=== PATIENT | female | born 1995 | race Caucasian/White ===

== ENCOUNTER 2017-08-24 23:58 | Emergency (ER) | payer SELFPAY ==
[2017-08-25 00:34] LABS: Urine Blood TRACE (NEG); Urine Glucose NEGATIVE (NEG); Urine Protein 1+ (NEG)
[2017-08-25 01:03] LABS: Urine Bacteria <20 /HPF (<20); Urine RBC <5 /HPF (NONE SEEN)
[2017-08-25 01:04] LABS: Urine Culture Reflex Order NOT NEEDED; Urine Mucus MOD /HPF (NONE SEEN)
--- NOTE | 2017-08-25 01:18 | EDPHYS ---
Physician Documentation [facility] Name: Kenyatta Mejía Age: 21 yrs Sex: Female : 1995 Arrival Date: 08/24/2017 Time: 23:58 Bed 19 Private MD: ED Physician Raza Quinteros HPI: 08/25 00:32 This 21 yrs old Female presents to ER via Ambulatory with complaints of jr8 Vaginal Pain - Burning. 00:32 The patient presents with urinary symptoms, dysuria, vaginal pain. Onset: The jr8 symptoms/episode began/occurred acutely, yesterday. Modifying factors: The symptoms are alleviated by nothing, the symptoms are aggravated by urinating. Associated signs and symptoms: The patient has no apparent associated signs or symptoms. Severity of symptoms: At their worst the symptoms were mild, in the emergency department the symptoms are unchanged. The patient has not experienced similar symptoms in the past. The patient has not recently seen a physician. 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 - Social history:: Smoking status: Patient uses tobacco products, smokes one pack cigarettes per day. - Ebola Screening: : No symptoms or risks identified at this time. ROS: 00:32 Eyes: Negative for injury, pain, redness, and discharge, ENT: Negative for injury, jr8 pain, and discharge, Neck: Negative for injury, pain, and swelling, Cardiovascular: Negative for chest pain, palpitations, and edema, Respiratory: Negative for shortness of breath, cough, wheezing, and pleuritic chest pain, Abdomen/GI: Negative for abdominal pain, nausea, vomiting, diarrhea, and constipation, Back: Negative for injury and pain, MS/Extremity: Negative for injury and deformity, Skin: Negative for injury, rash, and discoloration, Neuro: Negative for headache, weakness, numbness, tingling, and seizure. 00:32 : Positive for urinary symptoms, vaginal burning, Negative for pelvic pain, flank pain, vaginal bleeding, vaginal discharge, vaginal itching, menstrual abnormality, missed period. Exam: 00:32 Cardiovascular: Regular rate and rhythm with a normal S1 and S2. No gallops, murmurs, jr8 or rubs. Normal PMI, no JVD. No pulse deficits. Respiratory: Lungs have equal breath sounds bilaterally, clear to auscultation and percussion. No rales, rhonchi or wheezes noted. No increased work of breathing, no retractions or nasal flaring. Abdomen/GI: Soft, non-tender, with normal bowel sounds. No distension or tympany. No guarding or rebound. No evidence of tenderness throughout. Back: No spinal tenderness. No costovertebral tenderness. Full range of motion. Skin: Warm, dry with normal turgor. Normal color with no rashes, no lesions, and no evidence of cellulitis. MS/ Extremity: Pulses equal, no cyanosis. Neurovascular intact. Full, normal range of motion. Neuro: Awake and alert, GCS 15, oriented to person, place, time, and situation. Cranial nerves II-XII grossly intact. Motor strength 5/5 in all extremities. Sensory grossly intact. Cerebellar exam normal. Normal gait. 01:15 : Pelvic Exam: External exam: no appreciated Bartholin's cyst, not excoriated, no jr8 evidence of foreign body, no lesions, no ulcerations, no warts seen, mild erythema to left labia minora , the nurse was present for the exam. Vital Signs: 00:13 BP 96 / 84; Pulse 72; Resp 16; Temp 98.3; Pulse Ox 99% on R/A; Weight 49.9 kg (M); ak1 Height 5 ft. 5 in. (165.10 cm) (R); Pain 9/10; 01:13 BP 106 / 72; Pulse 66; Resp 16 S; Temp 98(O); Pulse Ox 98% on R/A; Pain 5/10; bs1 00:13 Body Mass Index 18.30 (49.90 kg, 165.10 cm) ak1 MDM: 00:19 Patient medically screened. jr8 01:16 Data reviewed: vital signs, nurses notes, lab test result(s), and as a result, I will jr8 discharge patient. Data interpreted: Pulse oximetry: on room air is 99 %. Interpretation: normal. Counseling: I had a detailed discussion with the patient and/or guardian regarding: the historical points, exam findings, and any diagnostic results supporting the discharge/admit diagnosis, lab results, the need for outpatient follow up, an OB/Gyne specialist, to return to the emergency department if symptoms worsen or persist or if there are any questions or concerns that arise at home. 08/25 00:20 Order name: Urine Microscopic Only; Complete Time: 01:04 jr8 08/25 00:26 Order name: Urine Dipstick--Ancillary (enter results); Complete Time: 00:42 rg2 08/25 00:20 Order name: Urine Test (obtain specimen); Complete Time: 00:25 8 08/25 00:20 Order name: Urine Dipstick-Ancillary (obtain specimen); Complete Time: 00:08/25 00:26 Order name: Urine --Ancillary (enter results); Complete Time: 00:42 rg2 Administered Medications: No medications were administered Disposition: 07:01 Co-signature as Attending Physician, Raza Quinteros MD I agree with the assessment and juan plan of care. Disposition: 08/25/17 01:17 Discharged to Home. Impression: Vaginitis. - Condition is Stable. - Discharge Instructions: Vaginitis, Monilial. - Prescriptions for Clotrimazole 1 % Vaginal Cream - insert 1 applicatorful by VAGINAL route At bedtime for 7 days; 7 Syringe. - Medication Reconciliation Form, Thank You Letter, Antibiotic Education, Prescription Opioid Use form. - Follow up: Private Physician; When: 1 week; Reason: Recheck today's complaints, Continuance of care, Re-evaluation by your physician. - Problem is new. - Symptoms have improved. Signatures: Dispatcher [employer] [facility] Raza Quinteros MD MD cha Roszak, Josh, PA PA jr8 Jemma Reed, RN RN ak1 Chanel Schrader RN RN bs1 Corrections: (The following items were deleted from the chart) 01:41 01:17 08/25/2017 01:17 Discharged to Home. Impression: Vaginitis. Condition is Stable. bs1 Forms are Medication Reconciliation Form, Thank You Letter, Antibiotic Education, Prescription Opioid Use. Follow up: Private Physician; When: 1 week; Reason: Recheck today's complaints, Continuance of care, Re-evaluation by your physician. Problem is new. Symptoms have improved. jr8
--- NOTE | 2017-08-25 01:18 | ER ---
Nurse's Notes [facility] Name: Kenyatta Mejía Age: 21 yrs Sex: Female : 1995 Arrival Date: 08/24/2017 Time: 23:58 Bed 19 Private MD: Diagnosis: Vaginitis Presentation: 08/25 00:12 Presenting complaint: Patient states: burning with urination and vaginal burning X2 ak1 days. pt denies vaginal bleeding, denies vaginal discharge. Transition of care: patient was not received from another setting of care. Onset of symptoms is unknown. Risk Assessment: Do you want to hurt yourself or someone else? Patient reports no desire to harm self or others. Risk Assessment: Do you want to hurt yourself or someone else?. Initial Sepsis Screen: Does the patient meet any 2 criteria? No. Patient's initial sepsis screen is negative. Does the patient have a suspected source of infection? No. Patient's initial sepsis screen is negative. Care prior to arrival: None. 00:12 Method Of Arrival: Ambulatory ak1 00:12 Acuity: COLIN 4 ak1 Triage Assessment: 00:13 General: Appears in no apparent distress. Behavior is calm, cooperative. Pain: ak1 Complains of pain in groin. EENT: No signs and/or symptoms were reported regarding the EENT system. Neuro: No deficits noted. Cardiovascular: No deficits noted. Respiratory: No deficits noted. GI: No signs and/or symptoms were reported involving the gastrointestinal system. 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 Derm: No signs and/or symptoms reported regarding the dermatologic system. Musculoskeletal: No signs and/or symptoms reported regarding the musculoskeletal system. 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 - Social history:: Smoking status: Patient uses tobacco products, smokes one pack cigarettes per day. - Ebola Screening: : No symptoms or risks identified at this time. Screenin:15 Abuse screen: Denies threats or abuse. Denies injuries from another. Nutritional ak1 screening: No deficits noted. Tuberculosis screening: No symptoms or risk factors identified. Fall Risk None identified. Assessment: 00:15 Reassessment: See Triage assessment. bs1 01:15 Reassessment: Patient and/or family updated on plan of care and expected duration. Pain bs1 level reassessed. Patient is alert, oriented x 3, equal unlabored respirations, skin warm/dry/pink. Assisted PEREZ Simpson with external pelvic exam. Patient tolerated. Vital Signs: 00:13 BP 96 / 84; Pulse 72; Resp 16; Temp 98.3; Pulse Ox 99% on R/A; Weight 49.9 kg (M); ak1 Height 5 ft. 5 in. (165.10 cm) (R); Pain 9/10; 01:13 BP 106 / 72; Pulse 66; Resp 16 S; Temp 98(O); Pulse Ox 98% on R/A; Pain 5/10; bs1 00:13 Body Mass Index 18.30 (49.90 kg, 165.10 cm) ak1 ED Course: 08/24 23:58 Patient arrived in ED. ds1 07 00:13 Triage completed. ak1 00:13 Arm band placed on Patient placed in an exam room, on a stretcher, Patient notified of ak1 wait time. 00:15 Patient has correct armband on for positive identification. Bed in low position. Call ak1 light in reach. Side rails up X 1. 00:19 Peewee Simpson PA is PHCP. jr8 00:19 Raza Quinteros MD is Attending Physician. jr8 00:29 Chanel Schrader, MAIK is Primary Nurse. bs1 01:15 Assist provider with pelvic exam:. bs1 01:15 Patient did not have IV access during this emergency room visit. bs1 Administered Medications: No medications were administered Outcome: 01:17 Discharge ordered by . jr8 01:40 Discharged to home ambulatory, with significant other. bs1 01:40 Condition: stable 01:40 Discharge instructions given to patient, Instructed on discharge instructions, follow up and referral plans. medication usage, Demonstrated understanding of instructions, follow-up care, medications, Prescriptions given X 1. 01:41 Patient left the ED. bs1 Signatures: Rina Pichardo ds1 Peewee Simpson PA PA jr8 Krenek, Amber, RN RN ak1 Chanel Schrader, RN RN bs1
== END 2017-08-25 01:41 | disposition home or self-care (01) ==
LOC: ER 23:58
DX: N76.0 Acute vaginitis (principal); F17.210 Nicotine dependence, cigarettes, uncomplicated
CPT/HCPCS: 81003; 81015; 81025; 99283

== ENCOUNTER 2017-10-22 18:18 | Emergency (ER) | payer SELFPAY ==
[2017-10-22 21:56] LABS: Absolute Monocytes 0.3 K/uL (0.1-1.3); Absolute Neutrophil 2.3 K/uL (1.8-8.0); Basophils % 0.5 % (0-1.3); Eosinophils % 1.8 % (0-4.4); Hematocrit 37.9 % (36.0-45.0); Lymphocytes % 27.2 % (15.3-44.8); MCH 29.6 pg (27.0-35.0); MCV 85.3 fL (80-100); MPV 8.7 fL (7.6-11.3); RBC Red Blood Cell Count 4.45 M/uL (3.86-4.86)
--- NOTE | 2017-10-22 22:08 | RAD REPORT ---
EXAM DESCRIPTION: CT - Abdomen Pelvis W Contrast - 10/22/2017 9:46 pm CLINICAL HISTORY: Abdominal pain with vaginal bleeding and vomiting. COMPARISON: none. TECHNIQUE: Computed axial tomography of the abdomen pelvis was obtained. 100 cc Isovue-300 was admin istered intravenously. Oral contrast was not requested which limits evaluation of bowel. All CT scans are performed using dose optimization technique as appropriate and may include automated exposure control or mA/KV adjustment according to patient size. FINDINGS: The liver, spleen, pancreas, adrenal and kidneys appear unremarkable. There is no evidence of diverticulitis. The appendix is normal Fluid is present within nondilated small IMPRESSION: Fluid within nondilated small bowel may indicate an enteritis
[2017-10-22 22:20] LABS: ALT/SGPT 39 U/L (12-78); AST/SGOT 22 U/L (15-37); Albumin 4.3 g/dL (3.4-5.0); Alkaline Phosphatase 55 U/L (45-117); BUN Blood Urea Nitrogen 14 mg/dL (7-18); Bicarbonate 26 mmol/L (21-32); Bilirubin Direct 0.2 mg/dL (0-0.2); Bilirubin Total 0.7 mg/dL (0.2-1.0); Glucose Level 84 mg/dL (74-106); Lipase 177 U/L (73-393); Potassium 3.7 mmol/L (3.5-5.1); Protein, Total 7.8 g/dL (6.4-8.2); Sodium Level 138 mmol/L (136-145)
--- NOTE | 2017-10-22 22:27 | EDPHYS ---
Physician Documentation [facility] Name: Kenyatta Mejía Age: 22 yrs Sex: Female : 1995 Arrival Date: 10/22/2017 Time: 18:21 Bed 25 Private MD: ED Physician John Stone HPI: 10/22 21:30 This 22 yrs old Female presents to ER via Ambulatory with complaints of jr8 Vaginal Bleeding, Nausea/Vomiting. 21:30 The patient presents with abdominal pain. Onset: The symptoms/episode began/occurred jr8 acutely, today. The symptoms do not radiate. Associated signs and symptoms: Pertinent positives: nausea and vomiting. The symptoms are described as stabbing. Modifying factors: The symptoms are alleviated by nothing, the symptoms are aggravated by nothing. Severity of pain: At its worst the pain was moderate in the emergency department the pain is unchanged. The patient has not experienced similar symptoms in the past. The patient has not recently seen a physician. stated that she has had vaginal bleeding on/off for two weeks as well . 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 - Social history:: Smoking status: Patient uses tobacco products, denies chronic smoking, but will smoke occasionally. - Ebola Screening: : Patient negative for fever greater than or equal to 101.5 degrees Fahrenheit, and additional compatible Ebola Virus Disease symptoms Patient denies exposure to infectious person Patient denies travel to an Ebola-affected area in the 21 days before illness onset No symptoms or risks identified at this time. ROS: 21:30 Eyes: Negative for injury, pain, redness, and discharge, ENT: Negative for injury, jr8 pain, and discharge, Neck: Negative for injury, pain, and swelling, Cardiovascular: Negative for chest pain, palpitations, and edema, Respiratory: Negative for shortness of breath, cough, wheezing, and pleuritic chest pain, Back: Negative for injury and pain, MS/Extremity: Negative for injury and deformity, Skin: Negative for injury, rash, and discoloration, Neuro: Negative for headache, weakness, numbness, tingling, and seizure. 21:30 Abdomen/GI: Positive for abdominal pain, nausea and vomiting, Negative for diarrhea, abdominal cramps, abdominal distension, anorexia, dysphagia, hematemesis, black/tarry stool, rectal pain, rectal bleeding, bowel incontinence, flatulence. 21:30 : Positive for vaginal bleeding, menstrual abnormality, Negative for urinary symptoms, pelvic pain, flank pain, burning with urination, difficulty urinating, vaginal discharge, vaginal itching. Exam: 21:31 Eyes: Pupils equal round and reactive to light, extra-ocular motions intact. Lids and jr8 lashes normal. Conjunctiva and sclera are non-icteric and not injected. Cornea within normal limits. Periorbital areas with no swelling, redness, or edema. ENT: Nares patent. No nasal discharge, no septal abnormalities noted. Tympanic membranes are normal and external auditory canals are clear. Oropharynx with no redness, swelling, or masses, exudates, or evidence of obstruction, uvula midline. Mucous membranes moist. Neck: Trachea midline, no thyromegaly or masses palpated, and no cervical lymphadenopathy. Supple, full range of motion without nuchal rigidity, or vertebral point tenderness. No Meningismus. Cardiovascular: Regular rate and rhythm with a normal S1 and S2. No gallops, murmurs, or rubs. Normal PMI, no JVD. No pulse deficits. Respiratory: Lungs have equal breath sounds bilaterally, clear to auscultation and percussion. No rales, rhonchi or wheezes noted. No increased work of breathing, no retractions or nasal flaring. Back: No spinal tenderness. No costovertebral tenderness. Full range of motion. Skin: Warm, dry with normal turgor. Normal color with no rashes, no lesions, and no evidence of cellulitis. MS/ Extremity: Pulses equal, no cyanosis. Neurovascular intact. Full, normal range of motion. Neuro: Awake and alert, GCS 15, oriented to person, place, time, and situation. Cranial nerves II-XII grossly intact. Motor strength 5/5 in all extremities. Sensory grossly intact. Cerebellar exam normal. Normal gait. 21:31 Abdomen/GI: Inspection: abdomen appears normal, Bowel sounds: active, all quadrants, Palpation: soft, in all quadrants, moderate abdominal tenderness, in the left lower quadrant, rebound tenderness, is not appreciated, voluntary guarding, is not appreciated, involuntary guarding, is not appreciated, no appreciated organomegaly, Indicators: McBurney's point is not tender, Canela's sign is negative, Rovsing's sign is negative, Liver: no appreciated palpable abnormalities, tenderness, is not appreciated. Vital Signs: 18:46 BP 108 / 70; Pulse 73; Resp 16; Temp 97.6; Pulse Ox 98% on R/A; Weight 49.9 kg; Height aj 5 ft. 5 in. (165.10 cm); 20:32 BP 113 / 68; Pulse 77; Resp 16; Pulse Ox 100% on R/A; tl3 21:55 BP 89 / 56; Pulse 84; Resp 16; Pulse Ox 96% ; tl3 22:54 BP 110 / 72; Pulse 74; Resp 18; Pulse Ox 100% on R/A; tl3 18:46 Body Mass Index 18.30 (49.90 kg, 165.10 cm) aj MDM: 20:51 Patient medically screened. jr8 22:26 Data reviewed: vital signs, nurses notes, lab test result(s), radiologic studies, CT jr8 scan, and as a result, I will discharge patient. Data interpreted: Pulse oximetry: on room air is 96 %. Interpretation: normal. Counseling: I had a detailed discussion with the patient and/or guardian regarding: the historical points, exam findings, and any diagnostic results supporting the discharge/admit diagnosis, lab results, radiology results, the need for outpatient follow up, a family practitioner, to return to the emergency department if symptoms worsen or persist or if there are any questions or concerns that arise at home. 10/22 21:00 Order name: Basic Metabolic Panel; Complete Time: 22:25 8 10/22 21:00 Order name: CBC with Diff; Complete Time: 22:03 10/22 21:00 Order name: Creatinine for Radiology; Complete Time: 22:25 [facility] 10/22 21:00 Order name: Hepatic Function; Complete Time: 22:25 8 10/22 21:00 Order name: Lipase; Complete Time: 22:25 [facility] 10/22 21:01 Order name: Urine Dipstick--Ancillary (enter results) 10/22 21:00 Order name: Urine Test (obtain specimen); Complete Time: 22:16 [facility] 10/22 21:00 Order name: IV Saline Lock; Complete Time: 22:16 [facility] 10/22 21:00 Order name: Labs collected and sent; Complete Time: 22:16 [facility] 10/22 21:00 Order name: Urine Dipstick-Ancillary (obtain specimen); Complete Time: 22:16 [facility] 10/22 21:00 Order name: CT Abd/Pelvis - W/Contrast; Complete Time: 22:25 [facility] 10/22 21:01 Order name: Urine --Ancillary (enter results) fc Administered Medications: No medications were administered Disposition: 10/23 02:12 Co-signature as Attending Physician, John Stone MD I agree with the assessment and ps1 plan of care. Disposition: 10/22/17 22:27 Discharged to Home. Impression: Enteritis, Abnormal uterine and vaginal bleeding, unspecified. - Condition is Stable. - Discharge Instructions: Abnormal Uterine Bleeding, Viral Gastroenteritis, Adult, Form - Excuse from Work, School, or Physical Activity, Form - Return To Work. - Prescriptions for Bentyl 20 mg Oral Tablet - take 1 tablet by ORAL route every 6 hours As needed; 20 tablet. Zofran 4 mg Oral Tablet - take 1 tablet by ORAL route every 12 hours As needed; 20 tablet. - Medication Reconciliation Form, Thank You Letter, Antibiotic Education, Prescription Opioid Use, Work release form form. - Follow up: Private Physician; When: 2 - 3 days; Reason: Recheck today's complaints, Continuance of care, Re-evaluation by your physician. - Problem is new. - Symptoms have improved. Signatures: Dispatcher [employer] Jossie Carpenter RN RN Peewee Erazo PA PA jr8 John Stone MD MD ps1 Oneida Lai RN RN tl3 Corrections: (The following items were deleted from the chart) 10/22 23:02 22:27 10/22/2017 22:27 Discharged to Home. Impression: Enteritis; Abnormal uterine and tl3 vaginal bleeding, unspecified. Condition is Stable. Forms are Medication Reconciliation Form, Thank You Letter, Antibiotic Education, Prescription Opioid Use. Follow up: Private Physician; When: 2 - 3 days; Reason: Recheck today's complaints, Continuance of care, Re-evaluation by your physician. Problem is new. Symptoms have improved. jr8
--- NOTE | 2017-10-22 22:27 | ER ---
Nurse's Notes [facility] Name: Kenyatta Mejía Age: 22 yrs Sex: Female : 1995 Arrival Date: 10/22/2017 Time: 18:21 Bed 25 Private MD: Diagnosis: Enteritis;Abnormal uterine and vaginal bleeding, unspecified Presentation: 10/22 18:44 Presenting complaint: Patient states: Vaginal bleeding for 2 weeks. Nausea and vomiting aj today. Patient reports vaginal bleeding has decreased today. Transition of care: patient was not received from another setting of care. Onset of symptoms was October 09, 2017. Risk Assessment: Do you want to hurt yourself or someone else? Patient reports no desire to harm self or others. Initial Sepsis Screen: Does the patient meet any 2 criteria? No. Patient's initial sepsis screen is negative. Does the patient have a suspected source of infection? No. Patient's initial sepsis screen is negative. Care prior to arrival: None. 18:44 Method Of Arrival: Ambulatory aj 18:44 Acuity: COLIN 3 aj Triage Assessment: 18:46 General: Appears in no apparent distress. comfortable, Behavior is calm, cooperative, aj appropriate for age. Pain: Complains of pain in right upper quadrant and left upper quadrant. Neuro: Level of Consciousness is awake, alert, obeys commands, Oriented to person, place, time, situation, Appropriate for age. Respiratory: Airway is patent Respiratory effort is even, unlabored, Respiratory pattern is regular, symmetrical. GI: Abdomen is flat, Reports upper abdominal pain, nausea, vomiting. : Reports vaginal bleeding that is moderate flow. Derm: Skin is intact, is healthy with good turgor, Skin is pink, warm \T\ dry. normal. 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 - Social history:: Smoking status: Patient uses tobacco products, denies chronic smoking, but will smoke occasionally. - Ebola Screening: : Patient negative for fever greater than or equal to 101.5 degrees Fahrenheit, and additional compatible Ebola Virus Disease symptoms Patient denies exposure to infectious person Patient denies travel to an Ebola-affected area in the 21 days before illness onset No symptoms or risks identified at this time. Screenin:32 Abuse screen: Denies threats or abuse. Nutritional screening: No deficits noted. tl3 Tuberculosis screening: No symptoms or risk factors identified. Fall Risk None identified. Assessment: 20:32 General: Appears in no apparent distress. comfortable, Behavior is calm, cooperative, tl3 appropriate for age. Pain: Complains of pain in abdomen and left upper quadrant. Neuro: Level of Consciousness is awake, alert, obeys commands. Cardiovascular: Patient's skin is warm and dry. Respiratory: Airway is patent Respiratory effort is even, unlabored, Respiratory pattern is regular, symmetrical. GI: Reports nausea, vomiting, twice today. : Reports vaginal bleeding that is 2 weeks, scant bleeding today, no clots, has implant control, in for over three years. 21:55 Reassessment: No changes from previously documented assessment. Patient and/or family tl3 updated on plan of care and expected duration. Pain level reassessed. Patient is alert, oriented x 3, equal unlabored respirations, skin warm/dry/pink. 22:54 Reassessment: Patient appears in no apparent distress at this time. No changes from tl3 previously documented assessment. Patient and/or family updated on plan of care and expected duration. Pain level reassessed. Patient is alert, oriented x 3, equal unlabored respirations, skin warm/dry/pink. Vital Signs: 18:46 BP 108 / 70; Pulse 73; Resp 16; Temp 97.6; Pulse Ox 98% on R/A; Weight 49.9 kg; Height aj 5 ft. 5 in. (165.10 cm); 20:32 BP 113 / 68; Pulse 77; Resp 16; Pulse Ox 100% on R/A; tl3 21:55 BP 89 / 56; Pulse 84; Resp 16; Pulse Ox 96% ; tl3 22:54 BP 110 / 72; Pulse 74; Resp 18; Pulse Ox 100% on R/A; tl3 18:46 Body Mass Index 18.30 (49.90 kg, 165.10 cm) aj ED Course: 18:21 Patient arrived in ED. am2 18:46 Triage completed. aj 18:46 Arm band placed on left wrist. Patient placed in waiting room, Patient notified of wait aj time. 20:18 Roszak, Peewee, PA is PHCP. jr8 20:18 John Stone MD is Attending Physician. jr8 20:31 Oneida Lai, RN is Primary Nurse. tl3 20:32 Patient has correct armband on for positive identification. Bed in low position. Call tl3 light in reach. Side rails up X 1. Pulse ox on. NIBP on. 20:32 No provider procedures requiring assistance completed. tl3 21:19 Radiology exam delayed due to lab results not completed at this time. (BUN/Creatinine) vm2 test not completed at this time. 21:26 Radiology exam delayed due to lab results not completed at this time. (BUN/Creatinine). nj 21:[address] via wheelchair. [facility] 21:39 CT completed. Patient tolerated procedure well. Patient moved back from CT. mo 21:46 CT Abd/Pelvis - W/Contrast In Process Unspecified. EDMS 21:55 Initial lab(s) drawn, by me, sent to lab. Inserted saline lock: 20 gauge in left tl3 antecubital area, using aseptic technique. Blood collected. 22:54 IV discontinued, intact, bleeding controlled, No redness/swelling at site. Pressure tl3 dressing applied. Administered Medications: No medications were administered Outcome: 22:27 Discharge ordered by . jr8 22:54 Discharged to home ambulatory. tl3 22:54 Condition: stable 22:54 Discharge instructions given to patient, Instructed on discharge instructions, follow up and referral plans. medication usage, Demonstrated understanding of instructions, follow-up care, medications, Prescriptions given X 2. 23:02 Patient left the ED. tl3 Signatures: Dispatcher [employer] EDMS Jossie Bull, RN Peewee Barrientos PA PA jr8 Kevan Ireland Amanda Serenity Sánchez [facility] Oneida Lai, RN RN tl3
[2017-10-22 23:04] LABS: Urine Blood TRACE (NEG); Urine Glucose NEGATIVE (NEG); Urine Protein NEGATIVE (NEG); Urine pH 5.5 (5.0-7.0)
== END 2017-10-22 23:02 | disposition home or self-care (01) ==
LOC: ER 18:18
DX: N93.9 Abnormal uterine and vaginal bleeding, unspecified (principal); K52.9 Noninfective gastroenteritis and colitis, unspecified; Z72.0 Tobacco use
CPT/HCPCS: 36415; 74177; 80048; 80076; 81003; 81025; 83690; 85025; 99284; Q9967

== ENCOUNTER 2018-04-01 09:48 | Emergency (ER) | payer SELFPAY ==
--- NOTE | 2018-04-01 10:57 | ER ---
Nurse's Notes [facility] Name: Kenyatta Mejía Age: 22 yrs Sex: Female : 1995 Arrival Date: 04/01/2018 Time: 09:49 Bed 23 Private MD: None, None Diagnosis: Allergic rhinitis, unspecified Presentation: 04/01 10:01 Presenting complaint: Patient states: intermittent sore throat x "a couple months". ss Transition of care: patient was not received from another setting of care. Onset of symptoms is unknown. Risk Assessment: Do you want to hurt yourself or someone else? Patient reports no desire to harm self or others. Initial Sepsis Screen: Does the patient meet any 2 criteria? No. Patient's initial sepsis screen is negative. Does the patient have a suspected source of infection? No. Patient's initial sepsis screen is negative. Care prior to arrival: None. 10:01 Method Of Arrival: Ambulatory ss 10:01 Acuity: COLIN 4 ss Historical: - Allergies: 10:02 No Known Allergies; ss - Home Meds: 10:02 None [Active]; ss - PMHx: 10:02 None; ss - PSHx: 10:02 None; ss - Immunization history:: Adult Immunizations up to date. - Social history:: Smoking status: Patient uses tobacco products, < 1/2 ppd. - Ebola Screening: : Patient denies exposure to infectious person Patient denies travel to an Ebola-affected area in the 21 days before illness onset. Screenin:13 Abuse screen: Denies threats or abuse. Denies injuries from another. Nutritional ss screening: No deficits noted. Tuberculosis screening: No symptoms or risk factors identified. Never had TB. Fall Risk None identified. Assessment: 10:13 General: Appears in no apparent distress. comfortable, Behavior is calm, cooperative, ss Denies fever, feeling ill, fatigue, chills. Pain: Complains of pain in throat Pain currently is 9 out of 10 on a pain scale. Quality of pain is described as sore Pain began pt reports that pain comes for a week, then is gone for a week and this has been ongoing for months. Neuro: Level of Consciousness is awake, alert, obeys commands, Oriented to person, place, time, situation. Cardiovascular: Heart tones S1 S2 present Capillary refill < 3 seconds is brisk in bilateral fingers Patient's skin is warm and dry. Respiratory: Airway is patent Respiratory effort is even, unlabored, Respiratory pattern is regular, symmetrical, Breath sounds are clear bilaterally. GI: Patient currently denies diarrhea, nausea, vomiting. : No signs and/or symptoms were reported regarding the genitourinary system. EENT: Nares are clear Oral mucosa is moist. Throat is clear is reddened. Derm: Skin is intact, is healthy with good turgor, Skin is dry, Skin is pink, warm \\T\\ dry. normal. Musculoskeletal: Circulation, motion, and sensation intact. Range of motion: intact in all extremities, Swelling absent. Vital Signs: 10:02 BP 116 / 57; Pulse 87; Resp 14; Temp 97.6(TE); Pulse Ox 98% on R/A; Height 5 ft. 5 in. ss (165.10 cm); Pain 9/10; ED Course: 09:49 Patient arrived in ED. sb2 09:49 None, None is Private Physician. sb2 10:00 Renée Roberts FNP-C is [facility]. snw 10:00 Sage Tracy MD is Attending Physician. snw 10:02 Triage completed. ss 10:02 Arm band placed on right wrist. ss 10:11 Flu Sent. ss 10:11 Strep Sent. ss 10:13 Marixa Ragsdale, MAIK is Primary Nurse. ss 10:13 Patient has correct armband on for positive identification. Bed in low position. Call ss light in reach. 11:00 No provider procedures requiring assistance completed. Patient did not have IV access ss during this emergency room visit. Administered Medications: No medications were administered Outcome: 10:56 Discharge ordered by . snw 11:00 Discharged to home ambulatory. ss 11:00 Condition: good 11:00 Discharge instructions given to patient, family, Instructed on discharge instructions, follow up and referral plans. medication usage, Demonstrated understanding of instructions, follow-up care, medications, Prescriptions given X 1. 11:00 Patient left the ED. ss Signatures: Renée Roberts FNP-C SENIOR JAVA WEB APPLICATION DEVELOPER-Csnw Marixa Ragsdale, RN RN Veena Mccall sb2 Corrections: (The following items were deleted from the chart) 10:09 10:02 BP 116 / 5; Pulse 87bpm; Resp 14bpm; Pulse Ox 98% RA; Temp 97.6F Temporal; Height ss 5 ft. 5 in.; Pain 9/; ss
--- NOTE | 2018-04-01 10:57 | EDPHYS ---
Physician Documentation [facility] Name: Kenyatta Mejía Age: 22 yrs Sex: Female : 1995 Arrival Date: 04/01/2018 Time: 09:49 Bed 23 Private MD: None, None ED Physician Sage Tracy HPI: 04/01 10:58 This 22 yrs old Female presents to ER via Ambulatory with complaints of Sore snw Throat. 10:58 The patient presents with sore throat. The patient describes throat pain as raw. Onset: snw The symptoms/episode began/occurred gradually, comes and goes over and over, congested nose, sore throat, and then headache that comes and goes frequently. Historical: - Allergies: 10:02 No Known Allergies; ss - Home Meds: 10:02 None [Active]; ss - PMHx: 10:02 None; ss - PSHx: 10:02 None; ss - Immunization history:: Adult Immunizations up to date. - Social history:: Smoking status: Patient uses tobacco products, < 1/2 ppd. - Ebola Screening: : Patient denies exposure to infectious person Patient denies travel to an Ebola-affected area in the 21 days before illness onset. ROS: 10:57 Constitutional: Negative for fever, chills, and weight loss, Eyes: Negative for injury, snw pain, redness, and discharge, Neck: Negative for injury, pain, and swelling, Cardiovascular: Negative for chest pain, palpitations, and edema, Respiratory: Negative for shortness of breath, cough, wheezing, and pleuritic chest pain, Abdomen/GI: Negative for abdominal pain, nausea, vomiting, diarrhea, and constipation, Back: Negative for injury and pain, : Negative for injury, bleeding, discharge, and swelling, MS/Extremity: Negative for injury and deformity, Skin: Negative for injury, rash, and discoloration. 10:57 ENT: Positive for nasal discharge, sinus congestion, sore throat. 10:57 Neuro: Positive for headache. Exam: 10:56 Constitutional: This is a well developed, well nourished patient who is awake, alert, snw and in no acute distress. Head/Face: Normocephalic, atraumatic. Eyes: Pupils equal round and reactive to light, extra-ocular motions intact. Lids and lashes normal. Conjunctiva and sclera are non-icteric and not injected. Cornea within normal limits. Periorbital areas with no swelling, redness, or edema. ENT: Nares patent. No nasal discharge, no septal abnormalities noted. Tympanic membranes are normal and external auditory canals are clear. Oropharynx with no redness, swelling, or masses, exudates, or evidence of obstruction, uvula midline. Mucous membranes moist. Neck: Trachea midline, no thyromegaly or masses palpated, and no cervical lymphadenopathy. Supple, full range of motion without nuchal rigidity, or vertebral point tenderness. No Meningismus. Chest/axilla: Normal chest wall appearance and motion. Nontender with no deformity. No lesions are appreciated. Cardiovascular: Regular rate and rhythm with a normal S1 and S2. No gallops, murmurs, or rubs. Normal PMI, no JVD. No pulse deficits. Respiratory: Lungs have equal breath sounds bilaterally, clear to auscultation and percussion. No rales, rhonchi or wheezes noted. No increased work of breathing, no retractions or nasal flaring. Abdomen/GI: Soft, non-tender, with normal bowel sounds. No distension or tympany. No guarding or rebound. No evidence of tenderness throughout. Back: No spinal tenderness. No costovertebral tenderness. Full range of motion. Skin: Warm, dry with normal turgor. Normal color with no rashes, no lesions, and no evidence of cellulitis. MS/ Extremity: Pulses equal, no cyanosis. Neurovascular intact. Full, normal range of motion. Neuro: Awake and alert, GCS 15, oriented to person, place, time, and situation. Cranial nerves II-XII grossly intact. Motor strength 5/5 in all extremities. Sensory grossly intact. Cerebellar exam normal. Normal gait. Vital Signs: 10:02 BP 116 / 57; Pulse 87; Resp 14; Temp 97.6(TE); Pulse Ox 98% on R/A; Height 5 ft. 5 in. ss (165.10 cm); Pain 9/10; MDM: 10:02 Patient medically screened. snw 10:57 Data reviewed: vital signs, nurses notes. Data interpreted: Pulse oximetry: on room air snw is 98 %. Interpretation: normal. Counseling: I had a detailed discussion with the patient and/or guardian regarding: the historical points, exam findings, and any diagnostic results supporting the discharge/admit diagnosis, lab results, the need for outpatient follow up, to return to the emergency department if symptoms worsen or persist or if there are any questions or concerns that arise at home. Special discussion: Based on the history and exam findings, there is no indication for further emergent testing or inpatient evaluation. I discussed with the patient/guardian the need to see the primary care provider for further evaluation of the symptoms. 04/01 10:00 Order name: Flu; Complete Time: 10:47 snw 04/01 10:00 Order name: Strep; Complete Time: 10:32 snw 04/01 10:32 Order name: Throat Culture EDMS Administered Medications: No medications were administered Disposition: 14:06 Co-signature as Attending Physician, Sage Tracy MD I agree with the assessment and kdr plan of care. Disposition: 04/01/18 10:56 Discharged to Home. Impression: Allergic rhinitis, unspecified. - Condition is Stable. - Discharge Instructions: Allergies, Adult, Nasal Allergies, Allergic Rhinitis, Cough, Adult. - Prescriptions for Zyrtec 10 mg Oral Tablet - take 1 tablet by ORAL route once daily As needed; 20 tablet. - Medication Reconciliation Form, Thank You Letter, Antibiotic Education, Prescription Opioid Use form. - Follow up: Private Physician; When: 1 week; Reason: Recheck today's complaints, Continuance of care, Re-evaluation by your physician. Follow up: Emergency Department; When: As needed; Reason: Worsening of condition. Signatures: Dispatcher [facility] Sage Tracy MD MD [facility] Renée Roberts, CONSULTING SENIOR PRACTICE DIRECTOR-C CONSULTING SENIOR PRACTICE DIRECTOR-Marixa Dutta RN RN ss Corrections: (The following items were deleted from the chart) 11:00 10:56 04/01/2018 10:56 Discharged to Home. Impression: Allergic rhinitis, unspecified. ss Condition is Stable. Forms are Medication Reconciliation Form, Thank You Letter, Antibiotic Education, Prescription Opioid Use. Follow up: Private Physician; When: 1 week; Reason: Recheck today's complaints, Continuance of care, Re-evaluation by your physician. Follow up: Emergency Department; When: As needed; Reason: Worsening of condition. snw
== END 2018-04-01 11:00 | disposition home or self-care (01) ==
LOC: ER 09:48
DX: J30.9 Allergic rhinitis, unspecified (principal); Z72.0 Tobacco use
CPT/HCPCS: 87070; 87081; 87804; 99283

== ENCOUNTER 2018-07-26 16:10 | Emergency (ER) | payer SELFPAY ==
--- NOTE | 2018-07-26 18:06 | RAD REPORT ---
EXAM DESCRIPTION: USExttino Venous Uni Ltd07/26/2018 5:16 pm CLINICAL HISTORY: Right leg pain and swelling. COMPARISON: None. FINDINGS: Right common femoral, superficial femoral, popliteal and right posterior tibial veins are compressible and demonstrate augmentation. Doppler demonstrates good flow. IMPRESSION: No evidence of deep venous thrombosis involving the right lower extremity.
--- NOTE | 2018-07-26 18:14 | EDPHYS ---
Physician Documentation [facility] Name: Kenyatta Mejía Age: 22 yrs Sex: Female : 1995 Arrival Date: 07/26/2018 Time: 16:13 Bed 11 Private MD: None, None ED Physician Raza Quinteros HPI: 07/26 17:01 This 22 yrs old Female presents to ER via Ambulatory with complaints of Leg kb Pain, Leg Swelling. 17:01 The patient presents with pain, that is acute, swelling, tenderness. The complaints kb affect the right calf. Context: The problem was sustained at home, resulted from an unknown cause, the patient can fully bear weight, the patient is able to ambulate. Onset: The symptoms/episode began/occurred this morning. Modifying factors: The symptoms are alleviated by nothing. the symptoms are aggravated by pressure. Associated signs and symptoms: Pertinent positives: calf tenderness, swelling, discoloration. Treatment prior to arrival includes: no previous treatment. Severity of symptoms: At their worst the symptoms were moderate, in the emergency department the symptoms have improved, moderately. The patient has not experienced similar symptoms in the past. The patient has not recently seen a physician. Pt reports right calf pain, tenderness, swelling and discoloration that started this morning. States the swelling and discoloration went away, but still having pain and tenderness. 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 - Social history:: Smoking status: Patient uses tobacco products, smokes one-half pack cigarettes per day. - Ebola Screening: : Patient negative for fever greater than or equal to 101.5 degrees Fahrenheit, and additional compatible Ebola Virus Disease symptoms Patient denies exposure to infectious person Patient denies travel to an Ebola-affected area in the 21 days before illness onset. ROS: 16:58 Constitutional: Negative for fever, chills, and weight loss, ENT: Negative for injury, kb pain, and discharge, Neck: Negative for injury, pain, and swelling, Cardiovascular: Negative for chest pain, palpitations, and edema, Respiratory: Negative for shortness of breath, cough, wheezing, and pleuritic chest pain, Abdomen/GI: Negative for abdominal pain, nausea, vomiting, diarrhea, and constipation, Neuro: Negative for headache, weakness, numbness, tingling, and seizure. 16:58 Skin: Positive for discoloration, swelling, of the right calf. 17:01 MS/extremity: Positive for pain, of the right calf. kb Exam: 17:01 Constitutional: This is a well developed, well nourished patient who is awake, alert, kb and in no acute distress. Head/Face: Normocephalic, atraumatic. Chest/axilla: Normal chest wall appearance and motion. Nontender with no deformity. No lesions are appreciated. Cardiovascular: Regular rate and rhythm with a normal S1 and S2. No gallops, murmurs, or rubs. Normal PMI, no JVD. No pulse deficits. Respiratory: Lungs have equal breath sounds bilaterally, clear to auscultation and percussion. No rales, rhonchi or wheezes noted. No increased work of breathing, no retractions or nasal flaring. Abdomen/GI: Soft, non-tender, with normal bowel sounds. No distension or tympany. No guarding or rebound. No evidence of tenderness throughout. Neuro: Awake and alert, GCS 15, oriented to person, place, time, and situation. Cranial nerves II-XII grossly intact. Motor strength 5/5 in all extremities. Sensory grossly intact. Cerebellar exam normal. Normal gait. 17:01 Musculoskeletal/extremity: Extremities: grossly normal except: noted in the right calf: pain, ROM: intact in all extremities, Circulation is intact in all extremities. Sensation intact. Weight bearing: able to fully bear weight. Vital Signs: 16:25 BP 124 / 66; Pulse 103; Resp 16; Temp 98.6; Pulse Ox 99% on R/A; Weight 60.33 kg; aj Height 5 ft. 5 in. (165.10 cm); 17:36 BP 104 / 59; Pulse 78; Resp 18; Pulse Ox 99% on R/A; ae4 16:25 Body Mass Index 22.13 (60.33 kg, 165.10 cm) aj MDM: 16:42 Patient medically screened. kb 16:57 Data reviewed: vital signs, nurses notes. Data interpreted: Pulse oximetry: on room air kb is 99 %. Interpretation: normal. 18:13 Counseling: I had a detailed discussion with the patient and/or guardian regarding: the kb historical points, exam findings, and any diagnostic results supporting the discharge/admit diagnosis, radiology results, the need for outpatient follow up, a family practitioner, to return to the emergency department if symptoms worsen or persist or if there are any questions or concerns that arise at home. 07/26 16:50 Order name: US Extremity Venous Unilateral Ltd; Complete Time: 18:12 kb Administered Medications: No medications were administered Disposition: 07/26/18 18:13 Discharged to Home. Impression: Pain in right lower leg, Myalgia. - Condition is Stable. - Discharge Instructions: Musculoskeletal Pain, Muscle Pain, Adult. - Prescriptions for Cyclobenzaprine 10 mg Oral Tablet - take 1 tablet by ORAL route every 8 hours As needed; 15 tablet. Diclofenac Sodium 75 mg Oral Tablet, Delayed Release (E.C.) - take 1 tablet by ORAL route 2 times per day As needed; 30 tablet. - Medication Reconciliation Form, Thank You Letter, Antibiotic Education, Prescription Opioid Use, Work release form form. - Follow up: Private Physician; When: 2 - 3 days; Reason: Recheck today's complaints, Continuance of care, Re-evaluation by your physician. Follow up: Emergency Department; When: As needed; Reason: Worsening of condition. Signatures: Dispatcher [employer] EDDi Scales, ORACLE SOA CONSULTANT-C ORACLE SOA CONSULTANT-Jossie Carrasco RN RN Alex Beltran RN RN ae4 Corrections: (The following items were deleted from the chart) 17:01 16:58 Constitutional: Negative for fever, chills, and weight loss, ENT: Negative for kb injury, pain, and discharge, Neck: Negative for injury, pain, and swelling, Cardiovascular: Negative for chest pain, palpitations, and edema, Respiratory: Negative for shortness of breath, cough, wheezing, and pleuritic chest pain, Abdomen/GI: Negative for abdominal pain, nausea, vomiting, diarrhea, and constipation, Neuro: Negative for headache, weakness, numbness, tingling, and seizure, kb 18:38 18:13 07/26/2018 18:13 Discharged to Home. Impression: Pain in right lower leg; ae4 Myalgia. Condition is Stable. Forms are Medication Reconciliation Form, Thank You Letter, Antibiotic Education, Prescription Opioid Use. Follow up: Private Physician; When: 2 - 3 days; Reason: Recheck today's complaints, Continuance of care, Re-evaluation by your physician. Follow up: Emergency Department; When: As needed; Reason: Worsening of condition. kb
--- NOTE | 2018-07-26 18:14 | ER ---
Nurse's Notes [facility] Name: Kenyatta Mejía Age: 22 yrs Sex: Female : 1995 Arrival Date: 07/26/2018 Time: 16:13 Bed 11 Private MD: None, None Diagnosis: Pain in right lower leg;Myalgia Presentation: 07/26 16:24 Presenting complaint: Patient states: Right foot and leg pain and reported swelling aj this AM. Swelling currently resolved. Patient denies injury or trauma. Onset of symptoms was July 26, 2018. Care prior to arrival: None. 16:24 Method Of Arrival: Ambulatory aj 16:24 Acuity: COLIN 4 aj 16:53 Transition of care: patient was not received from another setting of care. Risk ae4 Assessment: Do you want to hurt yourself or someone else? Patient reports no desire to harm self or others. Initial Sepsis Screen: Does the patient meet any 2 criteria? No. Patient's initial sepsis screen is negative. Does the patient have a suspected source of infection? No. Patient's initial sepsis screen is negative. Triage Assessment: 16:25 General: Appears in no apparent distress. comfortable, Behavior is calm, cooperative, aj appropriate for age. Pain: Complains of pain in right leg. Neuro: Level of Consciousness is awake, alert, obeys commands, Oriented to person, place, time, situation, Appropriate for age. Respiratory: Airway is patent Respiratory effort is even, unlabored, Respiratory pattern is regular, symmetrical. Derm: Skin is intact, is healthy with good turgor, Skin is pink, warm \T\ dry. normal. Musculoskeletal: Reports pain in right leg. 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 - Social history:: Smoking status: Patient uses tobacco products, smokes one-half pack cigarettes per day. - Ebola Screening: : Patient negative for fever greater than or equal to 101.5 degrees Fahrenheit, and additional compatible Ebola Virus Disease symptoms Patient denies exposure to infectious person Patient denies travel to an Ebola-affected area in the 21 days before illness onset. Screenin:54 Abuse screen: Denies threats or abuse. Nutritional screening: No deficits noted. ae4 Tuberculosis screening: No symptoms or risk factors identified. Fall Risk None identified. No fall in past 12 months (0 pts). No secondary diagnosis (0 pts). No IV (0 pts). Ambulatory Aid- None/Bed Rest/Nurse Assist (0 pts). Gait- Normal/Bed Rest/Wheelchair (0 pts) Mental Status- Oriented to own ability (0 pts). Assessment: 16:55 General: Appears in no apparent distress. comfortable, Behavior is calm, cooperative. ae4 Pain: Complains of pain in right calf Aggravated by weight bearing, Palpation. Neuro: Level of Consciousness is awake, alert, obeys commands, Oriented to person, place, time, situation. Cardiovascular: Patient's skin is warm and dry. Respiratory: Airway is patent. GI: No signs and/or symptoms were reported involving the gastrointestinal system. : No signs and/or symptoms were reported regarding the genitourinary system. EENT: No signs and/or symptoms were reported regarding the EENT system. Derm: no visible swelling to painful area. Musculoskeletal: Reports pain in right calf since This morning upon waking up. . 17:37 Reassessment: Patient appears in no apparent distress at this time. Patient and/or ae4 family updated on plan of care and expected duration. Pain level reassessed. Vital Signs: 16:25 BP 124 / 66; Pulse 103; Resp 16; Temp 98.6; Pulse Ox 99% on R/A; Weight 60.33 kg; aj Height 5 ft. 5 in. (165.10 cm); 17:36 BP 104 / 59; Pulse 78; Resp 18; Pulse Ox 99% on R/A; ae4 16:25 Body Mass Index 22.13 (60.33 kg, 165.10 cm) aj ED Course: 16:13 Patient arrived in ED. ag5 16:14 None, None is Private Physician. ag5 16:25 Triage completed. aj 16:25 Arm band placed on left wrist. Patient placed in waiting room, Patient notified of wait aj time. 16:36 Alex Klein, MAIK is Primary Nurse. ae4 16:42 Di Jimenez FNP-C is [facility]. kb 16:42 Raza Quinteros MD is Attending Physician. kb 16:54 Adult w/ patient. Patient is sitting in recliner. Warm blanket given. ae4 17:18 US Extremity Venous Unilateral Ltd In Process Unspecified. EDMS 18:20 No provider procedures requiring assistance completed. Patient did not have IV access ae4 during this emergency room visit. Administered Medications: No medications were administered Outcome: 18:13 Discharge ordered by . kb 18:38 Patient left the ED. ae4 18:39 Discharged to home ambulatory, with significant other. ae4 18:39 Condition: stable 18:39 Discharge instructions given to patient, Instructed on discharge instructions, follow up and referral plans. medication usage, Demonstrated understanding of instructions, Prescriptions given X 2. Signatures: Dispatcher [employer] EDMS Di Jimenez, WOMEN'S SOCCER COACH-C WOMEN'S SOCCER COACH-Jossie Carrasco, RN RN Yury Galvez ag5 Alex Klein, RN RN ae4
== END 2018-07-26 18:38 | disposition home or self-care (01) ==
LOC: ER 16:10
DX: M79.10 Myalgia, unspecified site (principal)
CPT/HCPCS: 93971; 99283

== ENCOUNTER 2019-01-16 12:46 | Emergency (ER) | payer SELFPAY ==
--- OUTSIDE RECORDS SUMMARY | 2019-01-16 12:48 | XMS REPORT | Summary of Care ---
:1995 Author Organization [facility] Address [address] [place] [address] Care Team Providers Name Role Phone Paresh Vázquez [facility] Primary Care Provider Encounter Details Date Type Department Care Team Description 09/13/2018 Orders Only [facility]UST Doctor Unassigned, No [address] [facility] [place] [address] [address] [place] [address] Allergies Not on Filedocumented as of this encounter (statuses as of 09/13/2018) Medications Not on filedocumented as of this encounter (statuses as of 09/13/2018) Active Problems Not on filedocumented as of this encounter (statuses as of 09/13/2018) Immunizations Name Administration Dates Next Due DTAP 07/26/1998, 05/14/1998, 1995 HIB 4 Dose Schedule 07/26/1998, 05/14/1998, 1995 Hep B, Adol or Pedi Dosage 05/14/1998, [birth year] MMR 11/07/1998 Polio (IPV/OPV) 11/07/1998, 05/14/1998, 1995 Varicella (varivax)(chicken pox) 11/07/1998 documented as of this encounter Social History Tobacco Use Types Packs/Day Years Used Date Never Assessed Sex Assigned at Date Recorded Not on file Job Start Date Occupation Industry Not on file Not on file Not on file Travel History Travel Start Travel End No recent travel history available. documented as of this encounter Last Filed Vital Signs Not on filedocumented in this encounter Plan of Treatment Health Maintenance Due Date Last Done Comments VARICELLA VACCINES (2 of 2 - 2001 11/07/1998 2-dose childhood series) MENINGOCOCCAL B VACCINES (1 of 10/06/2007 2 - Risk Bexsero 2-dose series) HPV VACCINES (1 - Female 2012 3-dose series) CHLAMYDIA SCREENING 2013 DTaP,Tdap,and Td Vaccines (4 - 2016 07/26/1998, Tdap) 05/14/1998, 1995 INFLUENZA VACCINE 10/17/2018 MENINGOCOCCAL VACCINE Aged Out No longer eligible based on patient's age to complete this topic PNEUMOCOCCAL 0-64 YEARS Aged Out No longer eligible based COMBINED SERIES on patient's age to complete this topic documented as of this encounter Procedures Procedure Name Priority Date/Time Associated Diagnosis Comments ASSIGNMENT OF BENEFITS Routine 09/13/2018 3:21 PM CDT documented in this encounter Results Not on filedocumented in this encounter Insurance Payer Benefit Plan Subscriber ID Effective Phone Address Type / Group Dates [facility] xxxxxxxxx 2018-Prese [phone] Medicaid [place] [id number] [place] [address] documented as of this encounter
--- OUTSIDE RECORDS SUMMARY | 2019-01-16 12:48 | XMS REPORT ---
:1995 Author [facility] Address [address] [place] [address] Dr. [address] [place] [address] Care Team Providers Name Role Phone Unavailable Unavailable Unavailable Problems This patient has no known problems. Allergies, Adverse Reactions, Alerts This patient has no known allergies or adverse reactions. Medications This patient has no known medications.
--- OUTSIDE RECORDS SUMMARY | 2019-01-16 12:49 | XMS REPORT | Summary of Care ---
:1995 Author Organization [facility] Address [address] [place] [address] Care Team Providers Name Role Phone Paresh Vázquez ASSISTANT INVENTORY MANAGER Primary Care Provider Reason for Visit Reason Comments CONTROL Nexplanon Removal Encounter Details Date Type Department Care Team Description 09/14/2018 Telephone [facility]- Paresh Vázquez, CONTROL [place] ASSISTANT INVENTORY MANAGER (Nexplanon Removal) [address] [facility] [address] [place], [place] [phone] Allergies No Known Allergiesdocumented as of this encounter (statuses as of 09/14/2018) Medications No known medicationsdocumented as of this encounter (statuses as of 09/14/2018) Active Problems Problem Noted Date Well woman exam 09/14/2018 Encounter for contraceptive management, unspecified type 09/14/[address] 09/14/2018 Screening examination for STD (sexually transmitted disease) 09/14/2018 documented as of this encounter (statuses as of 09/14/2018) Immunizations Name Administration Dates Next Due DTAP 07/26/1998, 05/14/1998, 1995 HIB 4 Dose Schedule 07/26/1998, 05/14/1998, 1997 Hep B, Adol or Pedi Dosage 05/14/1998, 1995, 1995 MMR 11/07/1998 Polio (IPV/OPV) 11/07/1998, 05/14/1998, 1995 Varicella (varivax)(chicken pox) 11/07/1998 documented as of this encounter Social History Tobacco Use Types Packs/Day Years Used Date Current Every Day Smoker Cigarettes 3 Smokeless Tobacco: Never Used Comments: started at age 19, smokes about 2-3 cig/day Alcohol Use Drinks/Week oz/Week Comments Yes on occassion socially Alcohol Habits Answer Date Recorded How often do you have a drink containing alcohol? Never 09/13/2018 How many drinks containing alcohol do you have on a typical Not asked day when you are drinking? How often do you have six or more drinks on one occasion? Not asked Sex Assigned at Date Recorded Not on file Job Start Date Occupation Industry Not on file Not on file Not on file Travel History Travel Start Travel End No recent travel history available. documented as of this encounter Last Filed Vital Signs Not on filedocumented in this encounter Plan of Treatment Date Type Specialty Care Team Description 09/27/2018 Nurse Visit [facility] Satellites Visit, [facility] Nurse Health Maintenance Due Date Last Done Comments VARICELLA VACCINES (2 of 2 - 2001 11/07/1998 2-dose childhood series) PNEUMOCOCCAL 0-64 YEARS 10/06/2003 COMBINED SERIES (1 of 1 - PPSV23) MENINGOCOCCAL B VACCINES (1 of 10/06/2007 2 - Risk Bexsero 2-dose series) HPV VACCINES (1 - Female 2012 3-dose series) DTaP,Tdap,and Td Vaccines (4 - 2016 07/26/1998, Tdap) 05/14/1998, 1995 INFLUENZA VACCINE 10/17/2018 CHLAMYDIA SCREENING 09/14/2019 09/13/2018 MENINGOCOCCAL VACCINE Aged Out No longer eligible based on patient's age to complete this topic documented as of this encounter Results Not on filedocumented in this encounter Insurance Payer Benefit Plan Subscriber ID Effective Phone Address Type / Group Dates [facility] xxxxxxxxx 2018-Prese [phone] Medicaid WOMEN nt [address] [place] [address] documented as of this encounter
--- OUTSIDE RECORDS SUMMARY | 2019-01-16 12:49 | XMS REPORT | Summary of Care ---
:1995 Author Organization [facility] Address [address] [place] [address] Care Team Providers Name Role Phone Paresh Vázquez TERMITE CONTROL REPRESENTATIVE Primary Care Provider Reason for Visit Reason Comments CONTROL Nexplanon Removal Encounter Details Date Type Department Care Team Description 09/14/2018 Telephone [facility]- Paresh Vázquez, CONTROL [place] TERMITE CONTROL REPRESENTATIVE (Nexplanon Removal) [address] [facility] [address] [place], [place] [phone] Allergies No Known Allergiesdocumented as of [...] Description 09/27/2018 Nurse Visit OB Satellites Visit, [facility] Nurse Health Maintenance Due Date Last Done [...] Phone Address Type / Group Dates [facility] xxxxxxxxx 2018-Prese [phone] Medicaid WOMEN nt [address] [place] [address] documented as of this encounter
--- OUTSIDE RECORDS SUMMARY | 2019-01-16 12:49 | XMS REPORT | Summary of Care ---
:1995 Author Organization [facility] Address [address] [place] [address] Care Team Providers Name Role Phone Paresh Vázquez [facility] Primary Care Provider Encounter Details Date Type Department Care Team Description 09/17/2018 Patient Secure Msg [facility]- Paresh Vázquez [place] [facility] [address] [facility] [address] [place] [address] [place] [address] [phone] Allergies No Known Allergiesdocumented as of this encounter (statuses as of 09/17/2018) Medications No known medicationsdocumented as of this encounter (statuses as of 09/17/2018) Active Problems Problem Noted Date Well woman exam 09/14/2018 Encounter for contraceptive management, unspecified type 09/14/[address] 09/14/2018 Screening examination for STD (sexually transmitted disease) 09/14/2018 documented as of this encounter (statuses as of 09/17/2018) Immunizations Name Administration Dates Next Due DTAP [...] Description 09/27/2018 Nurse Visit OB Satellites Visit, [facility] Nurse Health Maintenance Due Date Last [...] 1995 INFLUENZA VACCINE 10/17/2018 CHLAMYDIA SCREENING 09/14/2019 09/13/2018, 09/13/2018 MENINGOCOCCAL VACCINE Aged Out No longer eligible based on patient's age to complete this topic documented as of this encounter Results Not on filedocumented in this encounter Insurance Payer Benefit Plan Subscriber ID Effective Phone Address Type / Group Dates [facility] xxxxxxxxx 2018-Prese [phone] Medicaid WOMEN nt [address] [place] [address] documented as of this encounter
--- OUTSIDE RECORDS SUMMARY | 2019-01-16 12:49 | XMS REPORT | Summary of Care ---
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 Primary Care Provider Reason for Visit Reason Comments Well Woman Exam Prob With Implant Encounter Details Date Type Department Care Team Description 09/13/2018 Office Visit [facility]- Paresh Vázquez Well woman exam (Primary Dx); AMOS Meehan Encounter for contraceptive management, unspecified type; [address]; [facility] Screening examination for STD (sexually transmitted disease) [id number] [place], [place] [address] Allergies No Known Allergiesdocumented as of this [...] Smoker Cigarettes 3 Smokeless Tobacco: Never Used Tobacco Cessation: Ready to Quit: Yes; Counseling Given: Yes Comments: started at age 19, smokes about [...] of this encounter Last Filed Vital Signs Vital Sign Reading Time Taken Comments Blood Pressure 112/65 09/13/2018 3:45 PM CDT Pulse 76 09/13/2018 3:45 PM CDT Temperature 37.1 C (98.7 F) 09/13/2018 3:45 PM CDT Respiratory Rate 16 09/13/2018 3:45 PM CDT Oxygen Saturation - - Inhaled Oxygen Concentration - - Weight 64 kg (141 lb) 09/13/2018 3:45 PM CDT Height - - Body Mass Index - - documented in this encounter Progress Notes Paresh Vázquez FNP - 09/13/2018 3:00 PM CDT Chief complaint: Chief Complaint Patient presents with Well Woman Exam Prob With Implant HPI Patient is CAF G0 here for WWE and contraception management. Patient denies any abdominal/pelvuic pain. Patient complains of numbness in her right had.Patient report she has Nexplanon in place x3 years. Patient is unsure of exact due to she had it placed in [place]. Patient state she can no longer feel the Nexplanon and has numbness in the hand. Patient desires removal and desires to start OCPs for BCM. Patient denies current or past physical, sexual or emotional abuse. Histories OB History Para Term AB Living 0 0 0 0 0 0 SAB TAB Ectopic Multiple Live Births 0 0 0 0 0 History reviewed. No pertinent past medical history. Family History Problem Relation Age of Onset No Significant Medical Problems Sister No Significant Medical Problems Brother Cancer Paternal Grandfather skin cancer Diabetes Paternal Grandfather High cholesterol Paternal Grandfather Family Status Relation Name Status Mo Other unknown history Fa Other unknown history Sis Alive Bro Alive MGMo Other MGFa Other PGMo PGFa Alive History reviewed. No pertinent surgical history. Social History Socioeconomic History Marital status: Single Spouse name: Not on file Number of children: Not on file Years of education: Not on file Highest education level: Not on file Occupational History Not on file Social Needs Financial resource strain: Not on file Food insecurity: Worry: Not on file Inability: Not on file Transportation needs: Medical: Not on file Non-medical: Not on file Tobacco Use Smoking status: Current Every Day Smoker Years: 3.00 Types: Cigarettes Smokeless tobacco: Never Used Tobacco comment: started at age 19, smokes about 2-3 cig/day Substance and Sexual Activity Alcohol use: Yes Frequency: Never Comment: on occassion socially Drug use: Never Sexual activity: Yes Partners: Male control/protection: Implant Comment: last sexual intercourse 09/13/2018 Lifestyle Physical activity: Days per week: Not on file Minutes per session: Not on file Stress: Not on file Relationships Social connections: Talks on phone: Not on file Gets together: Not on file Attends jewish service: Not on file Active member of club or organization: Not on file Attends meetings of clubs or organizations: Not on file Relationship status: Not on file Intimate partner violence: Fear of current or ex partner: Not on file Emotionally abused: Not on file Physically abused: Not on file Forced sexual activity: Not on file Other Topics Concern Not on file Social History Narrative Patient lives with boyfriend and his parents. Muslim preference: judaism. Social History Substance and Sexual Activity Sexual Activity Yes Partners: Male control/protection: Implant Comment: last sexual intercourse 09/13/2018 Labs Labs are pending. Radiology No new radiology. Allergies Kenyatta has No Known Allergies. Medications Kenyatta currently has no medications in their medication list. Review of Systems Constitutional: Negative for activity change, appetite change, fatigue, unexpected weight change, weight gain and weight loss. HENT: Negative for sore throat. Eyes: Negative for visual disturbance. Respiratory: Negative for cough and shortness of breath. Breasts: Negative for discharge, mass, pain and unequal size. Cardiovascular: Negative for chest pain, palpitations and leg swelling. Gastrointestinal: Negative. Negative for abdominal pain, anal bleeding, blood in stool, constipation, diarrhea, nausea, rectal pain and vomiting. Genitourinary: Negative for bladder incontinence, dysuria, urgency, flank pain, vaginal bleeding, vaginal discharge, genital sores, vaginal pain and pelvic pain. Skin: Negative for color change and rash. Neurological: Negative. Negative for dizziness, syncope and headaches. Psychiatric/Behavioral: Negative for confusion, self-injury and sleep disturbance. The patient is not nervous/anxious. Hematological: Negative for cold intolerance and heat intolerance. Endocrine: Negative for hair loss, cold intolerance, heat intolerance, weight gain and weight loss. BP 112/65 (BP Location: Right arm, Patient Position: Sitting, BP CUFF SIZE: Adult Medium) | Pulse 76 | Temp 37.1 C (98.7 F) (Oral) | Resp 16 | Wt 141 lb (64 kg) | LMP 05/17/2018 (Approximate) Pregravid BMI: Could not be calculated Physical Exam Vitals reviewed. Constitutional: She is oriented to person, place, and time. She appears well- developed, well-nourished and well-groomed. She has no deformities. Neck: No tenderness and no mass. No thyroid nodules and no thyromegaly palpated. Cardiovascular: Regular rate and rhythm. No murmur auscultated. Pulmonary/Chest: Breath sounds clear to auscultation. Normal inspiratory effort. Abdominal: Abdomen is soft. No mass palpated. No tenderness present. There is no guarding. Neuro/Psychiatric: She has a normal mood and affect. She is oriented to person, place, and time. Skin: Skin normal. No lesion and no rash present. Breast: Right breast exhibits no mass, no nipple discharge and no tenderness. Left breast exhibits no mass, no nipple discharge and no tenderness. Normal left breast and normal right breast Rectal: normal rectum External genitalia: Normal external genitalia appropriate for age. Normal hair distribution. No labial lesion. Maori Liaison Adviser present for the exam: Nely Olivo RN Vagina:Normal vagina. No lesion inspected. No abnormal vaginal discharge found. Cervix: Normal cervix. No lesion. No tenderness and no discharge present. Uterus: Uterus is normal size and non-tender. 6cmNormal uterus Adnexa: Right adnexa without tenderness or mass. Left adnexa without tenderness or mass. Normal leftadnexa and normal right adnexa Anus/perineum: Normal perineum. Assessment/Plan Rubella: N/A, resources given VZV: N/A, resources given BMI: See BMI Td:N/A, resources given Pap Smear: Deferred Gardasil: declines Mammogram: N/A Guaiac:N/A Colonoscopy:N/A Well woman exam (primary encounter diagnosis) Comment: Routine WWE Plan: Denies zika virus risk, signs and symptoms such as fever,rash,joint pain, conjunctivitis (red eyes), muscle pain, headaches; outside [place] travel to areas affected by zika, and FOB exposure to zika.Educated on use of mosquito repellent. Encounter for contraceptive management, unspecified type Comment: Nexplanon in arm, not able to palpate device, UPT done Plan: POCT TEST Will refer out for removal, UPT done today, negative, Patient will RTC for UPT and OCP start. Nexplanon in place Comment: not palpated Plan: [facility] Screening examination for STD (sexually transmitted disease) Comment: patient desires testing Plan: GC & CHLAMYDIA AMPLIFIED ASSAY, GALV ONLY - SYPHILIS IGG/IGM, HIV 1/2 AG-AB WITH REFLEX Safe sex practices Return to clinic in 2 weeks. Discussed treatment options. Medications as ordered. Reviewed patient instructions and provided printed copy. This visit did not involve counseling and coordination that comprised more than 50% of the visit time. AMOS Monahan 09/14/2018 9:11 AM Nely Adame RN - 09/13/2018 3:00 PM CDT22 year old never been presented to the clinic for WWE. 1) Previous BCM: nexplanon 2) Desired BCM: ocp 3) LMP: 05/17/2018 4) Last Shepherd: 09/13/2018 without protection 5) Last Pap: N/a Results: N/a HPV Results: n/a 6) Tdap in last 10 years? 07/26/1998 7) HPV Vaccines: patient would like to start vaccine at next visit. 8) C/O Numbness at site of nexplanon 9) Patient denies history of physical, emotional, or sexual abuse. Patient states she currently feels safe at home. documented in this encounter Plan of Treatment Date Type Specialty Care Team Description 09/27/2018 [facility] Name Type Priority Associated Diagnoses Date/Time GC & CHLAMYDIA LAB Routine Screening examination for 09/13/2018 4:01 PM CDT AMPLIFIED ASSAY STD (sexually transmitted disease) GALV ONLY - SYPHILIS LAB Routine Screening examination for 09/13/2018 4: 01 PM CDT IGG/IGM STD (sexually transmitted disease) Health Maintenance Due Date Last Done Comments [...] Procedure Name Priority Date/Time Associated Diagnosis Comments POCT Routine 09/13/2018 4:33 Encounter for Results for this TEST PM CDT contraceptive procedure are in management, the results unspecified type section. HIV 1/2 AG-AB WITH Routine 09/13/2018 4:01 Screening examination Results for this REFLEX PM CDT for STD (sexually procedure are in transmitted disease) the results section. documented in this encounter Results POCT TEST (09/13/2018 4:33 PM CDT) POCT PREG Negative On board controls acceptable Yes with C Line POCT PREG LOT # POCT PREG TEST DATE Specimen Urine - URINE, CLEAN CATCH HIV 1/2 AG-AB WITH REFLEX (09/13/2018 4:01 PM CDT) HIV 1/2 Ag-Ab with Negative Negative [facility] Reflex SERVICES HIV Semi-quantitative 0.06 [facility] Specimen Blood - ARM, LEFT Narrative Performed At Non-reactive for HIV-1 antigen and HIV-1/HIV-2 [facility] antibodies.No laboratory evidence of HIV infection.Repeat in 2-4 weeks if acute HIV infection is suspected. Performing Organization Address City/State/Zipcode Phone Number [facility] CLIA: [id number], [address] [place] [address] [phone] [facility] documented in this encounter Visit Diagnoses Diagnosis Well woman exam - Primary Routine general medical examination at a health care facility Encounter for contraceptive management, unspecified type Nexplanon in place Presence of subdermal contraceptive device Screening examination for STD (sexually transmitted disease) Screening examination for venereal disease documented in this encounter Insurance Payer Benefit Plan Subscriber ID Effective Phone Address Type / Group [facility] xxxxxxxxx 2018-Santiago [phone] Medicaid WOMEN nt 00 [id number] [place] [address] (Work) [phone] documented as of this encounter"
--- OUTSIDE RECORDS SUMMARY | 2019-01-16 12:49 | XMS REPORT | Summary of Care ---
:1995 Author Organization [facility] Address [address] [place] [address] Care Team Providers Name Role Phone Schuyler Vázquezjoyce TRINIDAD Primary Care Provider Reason for Referral Radiology Services (Routine) Status Reason Specialty Diagnoses / Referred By Referred To Procedures Contact Contact New Request Diagnostic Diagnoses Encounter for surveillance of Nexplanon subdermal contraceptive Henny Martin , Radiology Procedures XR HUMERUS 2 VW LEFT CNM [address] [place] [address] Reason for Visit Reason Comments NEXPLANON not palpable Encounter Details Date Type Department Care Team Description 09/15/2018 Telephone [facility] Henny Martin, NEXPLANON (not [facility] palpable) [address] 7[address] [address] [place], [place] [phone] [address] [phone] Allergies No Known Allergiesdocumented as of this encounter (statuses as of 09/15/2018) Medications No known medicationsdocumented as of this encounter (statuses as of 09/15/2018) Active Problems Problem Noted Date Well woman exam 09/14/2018 Encounter for contraceptive management, unspecified type 09/14/[address] 09/14/2018 Screening examination for STD (sexually transmitted disease) 09/14/2018 documented as of this encounter (statuses as of 09/15/2018) Immunizations Name Administration Dates Next Due DTAP [...] Description 09/27/2018 Nurse Visit OB Satellites Visit, [facility] Nurse Name Type Priority Associated Diagnoses Order Schedule XR HUMERUS 2 VW LEFT IMAGING Routine Encounter for surveillance Expected: 09/15/2018, of Nexplanon subdermal Expires: 09/16/2019 contraceptive, not palpable on exam Health Maintenance Due Date Last Done Comments [...] Results Not on filedocumented in this encounter Visit Diagnoses Diagnosis Encounter for surveillance of Nexplanon subdermal contraceptive, not palpable on exam - Primary documented in this encounter Insurance Payer Benefit Plan Subscriber ID Effective Phone Address Type / Group [facility] xxxxxxxxx 2018-[place] [phone] Medicaid WOMEN nt [address] [place] [address] documented as of this encounter
--- OUTSIDE RECORDS SUMMARY | 2019-01-16 12:49 | XMS REPORT | Summary of Care ---
:1995 Author Organization [facility] Address [address] [place] [address] Care Team Providers Name Role Phone Paresh Vázquez ER MANAGER Primary Care Provider Reason for Visit Reason Comments CONTROL Nexplanon Removal Encounter Details Date Type Department Care Team Description 09/14/2018 Telephone [facility]- Paresh Vázquez, CONTROL [place] ER MANAGER (Nexplanon Removal) [address] [facility] [address] [place], [place] [phone] Allergies No Known Allergiesdocumented as of [...] Description 09/27/2018 Nurse Visit OB Satellites Visit, [facility] Nurse Health Maintenance Due Date Last Done [...] Phone Address Type / Group Dates [facility] xxxxxxxxx 2018-[place] [phone] [address] Medicaid WOMEN nt [address] [place] [address] documented as of this encounter
--- OUTSIDE RECORDS SUMMARY | 2019-01-16 12:49 | XMS REPORT | Summary of Care ---
:1995 Author Organization [facility] Address [address] [place] [address] Care Team Providers Name Role Phone Paresh Vázquez GRADES 9 THROUGH 12 TEACHER Primary Care Provider Reason for Visit Reason Comments Well Woman Exam Prob With Implant Encounter Details Date Type Department Care Team Description 09/13/2018 Office Visit [facility]- Paresh Vázquez Well woman exam (Primary Dx); AMOS Meehan Encounter for contraceptive management, unspecified type; [address]; [facility] Screening examination for STD (sexually transmitted disease) [address] [place], [place] [address] Allergies No Known Allergiesdocumented as of this [...] due to she had it placed in [place]. Patient state she can no longer feel [...] file Gets together: Not on file Attends cheondoism service: Not on file Active member of [...] Patient lives with boyfriend and his parents. Restorationism preference: mormon. Social History Substance and Sexual Activity Sexual [...] age. Normal hair distribution. No labial lesion. 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 Assembler present for the exam: Nely Olivo RN [...] Comment: not palpated Plan: [facility] Screening examination for STD (sexually [...] BCM: ocp 3) LMP: 05/17/2018 4) Last [place]: 09/13/2018 without protection 5) Last Pap: N/a [...] Description 09/27/2018 Nurse Visit [facility]ell[facility], [facility] Nurse Name Type Priority Associated Diagnoses Date/Time [...] CDT) HIV 1/2 Ag-Ab with Negative Negative [facility] Reflex SERVICES HIV Semi-quantitative 0.06 [facility] Specimen Blood - ARM, LEFT Narrative Performed At Non-reactive for HIV-1 antigen and HIV-1/HIV-2 [facility] antibodies.No laboratory evidence of HIV infection.Repeat in 2-4 weeks if acute HIV infection is suspected. Performing Organization Address City/State/Zipcode Phone Number [facility] CLIA: [id number], [address] [place] [address] [phone] [facility] documented in this encounter Visit Diagnoses Diagnosis Well woman exam - Primary Routine general medical examination at a health care facility Encounter for contraceptive management, unspecified type Nexplanon in place Presence of subdermal contraceptive device Screening examination for STD (sexually transmitted disease) Screening examination for venereal disease documented in this encounter Insurance Payer Benefit Plan Subscriber ID Effective Phone Address Type / Group [facility] xxxxxxxxx 2018-[place] [phone] Medicaid WOMEN nt 00 [id number] [place] [address] (Work) [phone] documented as of this encounter"
--- OUTSIDE RECORDS SUMMARY | 2019-01-16 12:50 | XMS REPORT | Summary of Care ---
:1995 Author Organization [facility] Address [address] [place] [address] Care Team Providers Name Role Phone Paresh Vázquez [facility] Primary Care Provider Reason for Visit Reason Comments CONTROL Encounter Details Date Type Department Care Team Description 09/27/2018 Nurse Visit [facility]- Paresh Vázquez, [facility] [address] [place] [address] control [place] Visit, [facility] Nurse counseling (Primary [address] [facility] Dx) [place] [address] Allergies No Known Allergiesdocumented as of this encounter (statuses as of 09/27/2018) Medications Medication Sig Dispensed Refills Start Date End Date Status norgestimate-ethinyl Take 1 tablet by 1 Package 3 09/27/2018 Active estradiol (ORTHO mouth daily. TRI-CYCLEN, 28,) 0.18/0.215/0.25 mg-35 mcg (28) tabletIndications: control counseling documented as of this encounter (statuses as of 09/27/2018) Active Problems Problem Noted Date Well woman exam 09/14/2018 Encounter for contraceptive management, unspecified type 09/14/[address] 09/14/2018 Screening examination for STD (sexually transmitted disease) 09/14/2018 documented as of this encounter (statuses as of 09/27/2018) Immunizations Name Administration Dates Next Due DTAP [...] Sign Reading Time Taken Comments Blood Pressure 104/67 09/27/2018 8:25 AM CDT Pulse 68 09/27/2018 8:25 AM CDT Temperature 36.7 C (98.1 F) 09/27/2018 8:25 AM CDT Respiratory Rate 16 09/27/2018 8:25 AM CDT Oxygen Saturation - - Inhaled Oxygen Concentration - - Weight 65 kg (143 lb 4 oz) 09/27/2018 8:25 AM CDT Height 165.1 cm (5' 5") 09/27/2018 8:25 AM CDT Body Mass Index 23.84 09/27/2018 8:25 AM CDT documented in this encounter Patient Instructions Patient InstructionsLani Muniz RN - 09/27/2018 8:00 AM CDT Ethinyl Estradiol; Norgestimate tablets Brand Names: Estarylla, MONO-LINYAH, MonoNessa, Norgestimate/Ethinyl Estradiol, Ortho Tri-Cyclen, Ortho Tri-Cyclen Lo, Ortho-Cyclen, Previfem, Sprintec, Tri- Estarylla, TRI-LINYAH, Xhw-So-Ibjwjcwal, Nrs-Fj-Qxhfce, Hkl-Sy-Qussbdya, Trinessa, Trinessa Lo, Tri-Previfem, Tri-Sprintec, Tri-VyLibra, VyLibra What is this medicine? ETHINYL ESTRADIOL; NORGESTIMATE (ETH in il es tra DYE ole; nor LUCIEN ti mate) is an oral contraceptive. The products combine two types of female hormones, an estrogen and a progestin. They are used to prevent ovulation and . Some products are also used to treat acne in females. How should I use this medicine? Take this medicine by mouth. To reduce nausea, this medicine may be taken with food. Follow the directions on the prescription label. Take this medicine at the same time each day and in the order directed on the package. Do not take your medicine more often than directed. Contact your day habilitation specialist regarding the use of this medicine in children. Special care may be needed. This medicine has been used in female children who have started having menstrual periods. A patient package insert for the product will be given with each prescription and refill. Read this sheet carefully each time. The sheet may change frequently. What side effects may I notice from receiving this medicine? Side effects that you should report to your doctor or health weekend caregiver as soon as possible: breast tissue changes or discharge changes in vaginal bleeding during your period or between your periods chest pain coughing up blood dizziness or fainting spells headaches or migraines leg, arm or groin pain severe or sudden headaches stomach pain (severe) sudden shortness of breath sudden loss of coordination, especially on one side of the body speech problems symptoms of vaginal infection like itching, irritation or unusual discharge tenderness in the upper abdomen vomiting weakness or numbness in the arms or legs, especially on one side of the body yellowing of the eyes or skin Side effects that usually do not require medical attention (report to your doctor or health weekend caregiver if they continue or are bothersome): breakthrough bleeding and spotting that continues beyond the 3 initial cycles of pills breast tenderness mood changes, anxiety, depression, frustration, anger, or emotional outbursts increased sensitivity to sun or ultraviolet light nausea skin rash, acne, or brown spots on the skin weight gain (slight) What may interact with this medicine? Do not take this medicine with the following medication: dasabuvir; ombitasvir; paritaprevir; ritonavir ombitasvir; paritaprevir; ritonavir This medicine may also interact with the following medications: acetaminophen antibiotics or medicines for infections, especially rifampin, rifabutin, rifapentine, and griseofulvin, and possibly penicillins or tetracyclines aprepitant ascorbic acid (vitamin C) atorvastatin barbiturate medicines, such as phenobarbital bosentan carbamazepine caffeine clofibrate cyclosporine dantrolene doxercalciferol felbamate grapefruit juice hydrocortisone medicines for anxiety or sleeping problems, such as diazepam or temazepam medicines for diabetes, including pioglitazone mineral oil modafinil mycophenolate nefazodone oxcarbazepine phenytoin prednisolone ritonavir or other medicines for HIV infection or AIDS rosuvastatin selegiline soy isoflavones supplements Jose Luis's wort tamoxifen or raloxifene theophylline thyroid hormones topiramate warfarin What if I miss a dose? If you miss a dose, refer to the patient information sheet you received with your medicine for direction. If you miss more than one pill, this medicine may not be as effective and you may need to use another form of control. Where should I keep my medicine? Keep out of the reach of children. Store at room temperature between 15 and 30 degrees C (59 and 86 degrees F). Throw away any unused medicine after the expiration date. What should I tell my health care provider before I take this medicine? They need to know if you have or ever had any of these conditions: abnormal vaginal bleeding blood vessel disease or blood clots breast, cervical, endometrial, ovarian, liver, or uterine cancer diabetes gallbladder disease heart disease or recent heart attack high blood pressure high cholesterol kidney disease liver disease migraine headaches stroke systemic lupus erythematosus (SLE) tobacco smoker an unusual or allergic reaction to estrogens, progestins, other medicines, foods, dyes, or preservatives or trying to get breast-feeding What should I watch for while using this medicine? Visit your doctor or health weekend caregiver for regular checks on your progress. You will need a regular breast and pelvic exam and Pap smear while on this medicine. You should also discuss the need for regular mammograms with your health weekend caregiver, and follow his or her guidelines for thesetests. This medicine can make your body retain fluid, making your fingers, hands, or ankles swell. Your blood pressure can go up. Contact your doctor or health weekend caregiver if you feel you are retaining fluid. Use an additional method of contraception during the first cycle that you take these tablets. If you have any reason to think you are , stop taking this medicine right away and contact your doctor or health weekend caregiver. If you are taking this medicine for hormone related problems, it may take several cycles of use to see improvement in your condition. Do not use this product if you smoke and are over 35 years of age. Smoking increases the risk of getting a blood clot or having a stroke while you are taking control pills, especially if you are more than 35 years old. If you are a smoker who is 35 years of age or younger, you are strongly advised not to smoke while taking control pills. This medicine can make you more sensitive to the sun. Keep out of the sun. If you cannot avoid beingin the sun, wear protective clothing and use sunscreen. Do not use sun lamps or tanning beds/booths. If you wear contact lenses and notice visual changes, or if the lenses begin to feel uncomfortable, consult your eye rn homecare. In some women, tenderness, swelling, or minor bleeding of the gums may occur. Notify your dentist ifthis happens. Brushing and flossing your teeth regularly may help limit this. See your dentist regularly and inform your dentist of the medicines you are taking. If you are going to have elective surgery, you may need to stop taking this medicine before the surgery. Consult your health weekend caregiver for advice. This medicine does not protect you against HIV infection (AIDS) or any other sexually transmitted diseases. NOTE:This sheet is a summary. It may not cover all possible information. If you have questions aboutthis medicine, talk to your doctor, pharmacist, or health care provider. Copyright 2018 [employer] documented in this encounter Progress Notes Lani Muniz RN - 09/27/2018 8:00 AM CDTPatient present for ocp start. filled patient orthotricyclen lo x 3. OCPs called into pharmacy on file. Patient provided with education both written and verbal on control method chosen. Instructed patient to use a back up method for one month. Advised patient to RTC in 3 months for Nurse visit. Patient verbalized understanding. LANI MUNIZ RN 09/27/2018 9:06 AM documented in this encounter Plan of Treatment Date Type Specialty Care Team Description 12/21/2018 Nurse Visit [facility] Visit, [facility] Nurse Health Maintenance Due Date Last [...] Name Priority Date/Time Associated Diagnosis Comments POCT TEST Routine 09/27/2018 8:37 AM control Results for this CDT counseling procedure are in the results section. documented in this encounter Results POCT TEST (09/27/2018 8:37 AM CDT) POCT PREG Negative On board controls acceptable Yes with C Line POCT PREG LOT # POCT PREG TEST DATE Specimen Urine - URINE, CLEAN CATCH documented in this encounter Visit Diagnoses Diagnosis control counseling - Primary General counseling for initiation of other contraceptive measures documented in this encounter Insurance Payer Benefit Plan Subscriber ID Effective Phone Address Type / Group Dates [facility] xxxxxxxxx 2018-Santiago [phone] Medicaid WOMEN nt [address] [place] [address] (Home) [phone] [place], [place] (Work) [phone] documented as of this encounter
--- OUTSIDE RECORDS SUMMARY | 2019-01-16 12:50 | XMS REPORT | Summary of Care ---
:1995 Author Organization [facility] Address [address] [place] [address] Care Team Providers Name Role Phone Schuyler Vázquezjoyce Chan [facility] Primary Care Provider Reason for Visit Reason Comments NEXPLANON Encounter Details Date Type Department Care Team Description 09/29/2018 Telephone [facility] Henny Martin CNM NEXPLANON [address], [address] [place] [address] floor [address] [place] [address] Allergies No Known Allergiesdocumented as of this encounter (statuses as of 09/30/2018) Medications Medication Sig Dispensed Refills Start Date End Date Status norgestimate-ethinyl Take 1 tablet by 1 Package 3 09/27/2018 Active estradiol (ORTHO mouth daily. TRI-CYCLEN, 28,) 0.18/0.215/0.25 mg-35 mcg (28) tabletIndications: control counseling documented as of this encounter (statuses as of 09/30/2018) Active Problems Problem Noted Date Well woman exam 09/14/2018 Encounter for contraceptive management, unspecified type 09/14/[address] 09/14/2018 Screening examination for STD (sexually transmitted disease) 09/14/2018 documented as of this encounter (statuses as of 09/30/2018) Immunizations Name Administration Dates Next Due DTAP [...] Description 12/21/2018 Nurse Visit [facility]ell[place] Visit, [facility] Nurse Health Maintenance Due Date Last Done Comments VARICELLA VACCINES (2 of 2 - 2001 11/07/1998 2-dose childhood series) PNEUMOCOCCAL 0-64 YEARS 10/06/2003 COMBINED SERIES (1 of 1 - PPSV23) MENINGOCOCCAL B VACCINES (1 of 10/06/2007 2 - Risk Bexsero 2-dose series) HPV VACCINES (1 - Female 2012 3-dose series) DTaP,Tdap,and Td Vaccines (4 - 2016 07/26/1998, Tdap) 05/14/1998, 1997 INFLUENZA VACCINE (#1) 2018 CHLAMYDIA SCREENING 09/14/2019 09/13/2018, 09/13/2018 MENINGOCOCCAL VACCINE Aged Out No longer eligible based on patient's age to complete this topic documented as of this encounter Results Not on filedocumented in this encounter Insurance Payer Benefit Plan Subscriber ID Effective Phone Address Type / Group Dates [facility] 2018-[place] [phone] Medicaid WOMEN nt [address] [place] [address] documented as of this encounter
--- OUTSIDE RECORDS SUMMARY | 2019-01-16 12:50 | XMS REPORT | Summary of Care ---
:1995 Author Organization [facility] Address [address] [place] [address] Care Team Providers Name Role Phone Paresh Vázquez [facility] Primary Care Provider Reason for Visit Reason Comments CONTROL Encounter Details Date Type Department Care Team Description 09/27/2018 Nurse Visit [facility]- Paresh Vázquez, [facility] [address] [place] [address] control [place] Visit, [facility] Nurse counseling (Primary [address] [facility] Dx) [place] [address] Allergies No Known Allergiesdocumented as [...] 8:25 AM CDT documented in this encounter Plan of Treatment Date Type Specialty Care Team Description 12/21/2018 Nurse Visit [facility] Satell[facility] Visit, [facility] Nurse Health Maintenance Due Date Last [...] ID Effective Phone Address Type / Group [facility] xxxxxxxxx 2018-[place] [phone] Medicaid [place]OMEN nt [id number] [place] [address] (Work) [phone] documented as of this encounter
--- OUTSIDE RECORDS SUMMARY | 2019-01-16 12:50 | XMS REPORT | Summary of Care ---
:1995 Author Organization [facility] Address [address] [place] [address] Care Team Providers Name Role Phone Paresh Vázquez [facility] Primary Care Provider Reason for Visit Reason Comments CONTROL Encounter Details Date Type Department Care Team Description 09/27/2018 Nurse Visit [facility]- Paresh Vázquez, [facility] [address] [place] [address] control [place] Visit, [facility] Nurse counseling (Primary [address] [facility] Dx) [place] [address] Allergies No Known Allergiesdocumented as [...] documented in this encounter Plan of Treatment Health [...] ID Effective Phone Address Type / Group [facility] xxxxxxxxx 2018-[place] [phone] Medicaid WOMEN nt [address] [place] [address] (Work) [phone] documented as of this encounter
--- OUTSIDE RECORDS SUMMARY | 2019-01-16 12:50 | XMS REPORT | Summary of Care ---
:1995 Author Organization [facility] Address [address] [place] [address] Care Team Providers Name Role Phone Paresh Vázquez [facility] Primary Care Provider Encounter Details Date Type Department Care Team Description 09/17/2018 Patient Secure Msg [facility]- Paresh Vázquez [place] [facility] [address] [facility] [address] [place] [address] [place] [address] [phone] Allergies No Known Allergiesdocumented as of this encounter (statuses as of 09/20/2018) Medications No known medicationsdocumented as of this encounter (statuses as of 09/20/2018) Active Problems Problem Noted Date Well woman exam 09/14/2018 Encounter for contraceptive management, unspecified type 09/14/[address] 09/14/2018 Screening examination for STD (sexually transmitted disease) 09/14/2018 documented as of this encounter (statuses as of 09/20/2018) Immunizations Name Administration Dates Next Due DTAP [...] Description 09/27/2018 Nurse Visit OB Satell[facility] Visit, [facility] Nurse Health Maintenance Due Date Last [...] Effective Phone Address Type / Group Dates [facility] xxxxxxxxx 2018-Prese [phone] Medicaid WOMEN nt [address] [place] [address] documented as of this encounter
--- OUTSIDE RECORDS SUMMARY | 2019-01-16 12:50 | XMS REPORT | Summary of Care ---
:1995 Author Organization [facility] Address [address] [place] [address] Care Team Providers Name Role Phone Paresh Vázquez [facility] Primary Care Provider Encounter Details Date Type Department Care Team Description 09/17/2018 Patient Secure Msg [facility]- Paresh Vázquez [place] [facility] [address] [facility] [address] [place] [address] [place] [address] [phone] Allergies No Known Allergiesdocumented as of this [...] Description 09/27/2018 Nurse Visit [place] Sat[place] Visit, [facility] Nurse Health Maintenance Due Date Last [...] Effective Phone Address Type / Group Dates [facility] xxxxxxxxx 2018-Prese [phone] Medicaid WOMEN nt [address] [place] [address] documented as of this encounter
--- NOTE | 2019-01-16 13:51 | RAD REPORT ---
EXAM DESCRIPTION: RAD - Chest Pa And Lat (2 Views) - 01/16/2019 1:42 pm CLINICAL HISTORY: COUGH Chest pain. COMPARISON: No comparisons FINDINGS: Interstitial prominence is present which may indicate pneumonitis/bronchitis or asthma. No focal consolidation typical of pneumonia evident. The heart is normal in size. No displaced fracture s.
--- NOTE | 2019-01-16 14:10 | EDPHYS ---
Physician Documentation [facility] Name: Kenyatta Mejía Age: 23 yrs Sex: Female : 1995 Arrival Date: 01/16/2019 Time: 12:47 Bed 7 Private MD: ED Physician John Stone HPI: 01/16 14:16 This 23 yrs old Female presents to ER via Ambulatory with complaints of Cough.kb 14:16 The patient or guardian reports cough, that is intermittent, described as moderate, kb with no sputum. Onset: The symptoms/episode began/occurred 2 week(s) ago. Severity of symptoms: At their worst the symptoms were mild, moderate, in the emergency department the symptoms are unchanged. Modifying factors: The symptoms are alleviated by nothing, the symptoms are aggravated by nothing. Associated signs and symptoms: Pertinent positives: rhinorrhea, Pertinent negatives: chest pain, diarrhea, ear ache, fever, nausea, sore throat, vomiting. The patient has not experienced similar symptoms in the past. The patient has not recently seen a physician. 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 - Social history:: Smoking status: Patient uses tobacco products, denies chronic smoking, but will smoke occasionally. - Ebola Screening: : Patient denies travel to an Ebola-affected area in the 21 days before illness onset. ROS: 14:14 Constitutional: Negative for fever, chills, and weight loss, Neck: Negative for injury, kb pain, and swelling, Cardiovascular: Negative for chest pain, palpitations, and edema, Abdomen/GI: Negative for abdominal pain, nausea, vomiting, diarrhea, and constipation, Back: Negative for injury and pain, : Negative for injury, bleeding, discharge, and swelling, MS/Extremity: Negative for injury and deformity, Skin: Negative for injury, rash, and discoloration, Neuro: Negative for headache, weakness, numbness, tingling, and seizure. 14:14 ENT: Positive for rhinorrhea. 14:14 Respiratory: Positive for cough, Negative for dyspnea on exertion, hemoptysis, orthopnea, pleurisy, shortness of breath, sputum production, wheezing. Exam: 14:14 Constitutional: This is a well developed, well nourished patient who is awake, alert, kb and in no acute distress. Head/Face: Normocephalic, atraumatic. ENT: Nares patent. No nasal discharge, no septal abnormalities noted. Tympanic membranes are normal and external auditory canals are clear. Oropharynx with no redness, swelling, or masses, exudates, or evidence of obstruction, uvula midline. Mucous membranes moist. Neck: Trachea midline, no thyromegaly or masses palpated, and no cervical lymphadenopathy. Supple, full range of motion without nuchal rigidity, or vertebral point tenderness. No Meningismus. Chest/axilla: Normal chest wall appearance and motion. Nontender with no deformity. No lesions are appreciated. Cardiovascular: Regular rate and rhythm with a normal S1 and S2. No gallops, murmurs, or rubs. Normal PMI, no JVD. No pulse deficits. Respiratory: Lungs have equal breath sounds bilaterally, clear to auscultation and percussion. No rales, rhonchi or wheezes noted. No increased work of breathing, no retractions or nasal flaring. Abdomen/GI: Soft, non-tender, with normal bowel sounds. No distension or tympany. No guarding or rebound. No evidence of tenderness throughout. Back: No spinal tenderness. No costovertebral tenderness. Full range of motion. Skin: Warm, dry with normal turgor. Normal color with no rashes, no lesions, and no evidence of cellulitis. MS/ Extremity: Pulses equal, no cyanosis. Neurovascular intact. Full, normal range of motion. Neuro: Awake and alert, GCS 15, oriented to person, place, time, and situation. Cranial nerves II-XII grossly intact. Motor strength 5/5 in all extremities. Sensory grossly intact. Cerebellar exam normal. Normal gait. Vital Signs: 13:02 BP 124 / 74; Pulse 72; Resp 16; Temp 97.5; Pulse Ox 100% on R/A; Height 5 ft. 5 in. aj1 (165.10 cm) (R); Pain 8/10; 14:31 BP 129 / 69; Pulse 75; Resp 18; Temp 97.9; Pulse Ox 100% ; bp MDM: 13:23 Patient medically screened. kb 14:09 Data reviewed: vital signs, nurses notes. Data interpreted: Pulse oximetry: on room air kb is 100 %. Interpretation: normal. Counseling: I had a detailed discussion with the patient and/or guardian regarding: the historical points, exam findings, and any diagnostic results supporting the discharge/admit diagnosis, lab results, radiology results, the need for outpatient follow up, a family practitioner, to return to the emergency department if symptoms worsen or persist or if there are any questions or concerns that arise at home. 01/16 13:02 Order name: Flu; Complete Time: 13:42 aj1 01/16 13:02 Order name: Strep; Complete Time: 13:33 aj1 01/16 13:08 Order name: Chest Pa And Lat (2 Views) XRAY; Complete Time: 13:58 kb 01/16 13:28 Order name: Throat Culture [facility] 01/16 13:56 Order name: Urine Dipstick--Ancillary (enter results); Complete Time: 17:47 eb 01/16 13:56 Order name: Urine --Ancillary (enter results); Complete Time: 17:47 eb Administered Medications: No medications were administered Disposition: 17:47 Co-signature as Attending Physician, John Stone MD Did not see or evaluate the ps1 patient. Signing the chart for administrative purposes. Not an endorsement of care provided. . Disposition: 01/16/19 14:10 Discharged to Home. Impression: Bronchitis, not specified as acute or chronic. - Condition is Stable. - Discharge Instructions: Acute Bronchitis, Nriv-qo-Cjhe, Viral Respiratory Infection, Hice-Sq-Ndqj. - Prescriptions for Tessalon Perles 100 mg Oral Capsule - take 1 capsule by ORAL route every 8 hours As needed; 15 capsule. - Medication Reconciliation Form, Thank You Letter, Antibiotic Education, Prescription Opioid Use form. - Follow up: Emergency Department; When: As needed; Reason: Worsening of condition. Follow up: Private Physician; When: 2 - 3 days; Reason: Recheck today's complaints, Continuance of care, Re-evaluation by your physician. - Notes: Take an antihistamine with decongestant daily (zyrtec d, claritin d, ralph d) Signatures: Dispatcher [employer] EDSC Di Jimenez, HOSPITAL SUPERVISOR-C HOSPITAL SUPERVISOR-CkKristen Antonio, RN RN aj1 Gil Paulson, RN RN bp John Stone MD MD ps1 Corrections: (The following items were deleted from the chart) 14:32 14:10 01/16/2019 14:10 Discharged to Home. Impression: Bronchitis, not specified as bp acute or chronic. Condition is Stable. Forms are Medication Reconciliation Form, Thank You Letter, Antibiotic Education, Prescription Opioid Use. Follow up: Emergency Department; When: As needed; Reason: Worsening of condition. Follow up: Private Physician; When: 2 - 3 days; Reason: Recheck today's complaints, Continuance of care, Re-evaluation by your physician. kb
--- NOTE | 2019-01-16 14:10 | ER ---
Nurse's Notes [facility] Name: Kenyatta Mejía Age: 23 yrs Sex: Female : 1995 Arrival Date: 01/16/2019 Time: 12:47 Bed 7 Private MD: Diagnosis: Bronchitis, not specified as acute or chronic Presentation: 01/16 12:59 Presenting complaint: Patient states: "I've had this cough for like 2 weeks and its aj1 gotten worse in the last couple days" Denies fever. Transition of care: patient was not received from another setting of care. Onset of symptoms was 2018. Risk Assessment: Do you want to hurt yourself or someone else? Patient reports no desire to harm self or others. Initial Sepsis Screen: Does the patient meet any 2 criteria? No. Patient's initial sepsis screen is negative. Does the patient have a suspected source of infection? No. Patient's initial sepsis screen is negative. Care prior to arrival: None. 12:59 Method Of Arrival: Ambulatory aj 12:59 Acuity: COLIN 4 aj1 Triage Assessment: 13:02 General: Appears in no apparent distress. comfortable, Behavior is calm, cooperative, aj1 appropriate for age. Pain: Pain currently is 8 out of 10 on a pain scale. EENT: Reports nasal congestion nasal discharge sore throat. Neuro: Level of Consciousness is awake, alert, obeys commands. Cardiovascular: Patient's skin is warm and dry. Respiratory: Airway is patent Respiratory effort is even, unlabored, Respiratory pattern is regular, symmetrical. Respiratory: Reports cough that is hacking, persistent. 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 - Social history:: Smoking status: Patient uses tobacco products, denies chronic smoking, but will smoke occasionally. - Ebola Screening: : Patient denies travel to an Ebola-affected area in the 21 days before illness onset. Screenin:21 Abuse screen: Denies threats or abuse. Denies injuries from another. Nutritional bp screening: No deficits noted. Tuberculosis screening: No symptoms or risk factors identified. Fall Risk None identified. Assessment: 13:21 General: SEE TRIAGE NOTE. bp 14:30 Reassessment: PT D/C HOME AMBULATORY WITH FAMILY, DX WITH BRONCHITIS. bp Vital Signs: 13:02 BP 124 / 74; Pulse 72; Resp 16; Temp 97.5; Pulse Ox 100% on R/A; Height 5 ft. 5 in. aj1 (165.10 cm) (R); Pain 8/10; 14:31 BP 129 / 69; Pulse 75; Resp 18; Temp 97.9; Pulse Ox 100% ; bp ED Course: 12:47 Patient arrived in ED. as 13:01 Triage completed. aj1 13:02 Arm band placed on Patient placed in waiting room, Patient notified of wait time. aj1 13:07 Di Jimenez FNP-C is [facility]. kb 13:07 John Stone MD is Attending Physician. kb 13:21 Gil Paulson, RN is Primary Nurse. bp 13:21 Patient has correct armband on for positive identification. Bed in low position. Call bp light in reach. Side rails up X2. Adult w/ patient. 13:21 Strep Sent. mh5 13:21 Flu Sent. mh5 13:40 Chest Pa And Lat (2 Views) XRAY In Process Unspecified. EDMS 14:31 No provider procedures requiring assistance completed. Patient did not have IV access bp during this emergency room visit. Administered Medications: No medications were administered Outcome: 14:10 Discharge ordered by MD. kb 14:31 Discharged to home ambulatory, with family. bp 14:31 Condition: stable 14:31 Discharge instructions given to patient, Instructed on discharge instructions, follow up and referral plans. medication usage, Demonstrated understanding of instructions, follow-up care, medications, Prescriptions given X 1. 14:32 Patient left the ED. bp Signatures: Dispatcher [employer] EDMS Di Jimenez FNP-C FNP-Ckb Johnson, Angela RN RN aj1 Radha Farah Maria 5 Gil Paulson, RN RN bp
[2019-01-16 14:26] LABS: Urine Blood TRACE (NEG); Urine Glucose NEGATIVE (NEG); Urine Protein NEGATIVE (NEG); Urine Specific Gravity 1.015 (1.005-1.030)
[2019-01-16 14:53] VITALS: O2SAT 100
[2019-01-16 14:54] VITALS: BP 129/69; TEMP 97.9
== END 2019-01-16 14:32 | disposition home or self-care (01) ==
LOC: ER 12:46
DX: J40 Bronchitis, not specified as acute or chronic (principal); Z72.0 Tobacco use
CPT/HCPCS: 71046; 81003; 81025; 87070; 87081; 87804; 99283

== ENCOUNTER 2020-03-20 12:30 | Emergency (ER) | payer SELFPAY ==
--- OUTSIDE RECORDS SUMMARY | 2020-03-20 12:36 | XMS REPORT | Summary of Care ---
:1995 Author Organization [facility] - Health Address [address] [place] [address] Care Team Providers Name Role Phone VázquezRocio Primary Care Provider Encounter Details Date Type Department Care Team Description 03/06/2020 Orders Only [facility] Doctor Unassigned, No [address] [facility] [place] [address] [address] [place] [address] Allergies No Known Allergiesdocumented as of this encounter (statuses as of 03/06/2020) Medications Medication Sig Dispensed Refills Start Date End Date Status norgestimate-ethinyl Take 1 tablet by 1 Package 3 09/27/2018 Active estradiol (ORTHO mouth daily. TRI-CYCLEN, 28,) 0.18/0.215/0.25 mg-35 mcg (28) tabletIndications: control counseling documented as of this encounter (statuses as of 03/06/2020) Active Problems Problem Noted Date Well woman exam 09/14/2018 Encounter for contraceptive management, unspecified ty pe 09/14/[address] 09/14/2018 Screening examination for STD (sexually transmitted di sease) 09/14/2018 documented as of this encounter (statuses as of 03/06/2020) Immunizations Name Administration Dates Next Due DTAP 07/26/1998, 05/14/1998, 1995 HIB 4 Dose Schedule 07/26/1998, 05/14/1998, 1995 Hep B, Adol or Pedi Dosage 05/14/1998, 1995, 8 MMR 11/07/1998 Polio (IPV/OPV) 11/07/1998, 05/14/1998, 1995 Varicella (varivax)(chicken pox) 11/07/1998 documented as of this encounter Social History Tobacco Use Types Packs/Day Years Used Date Current Every Day Smoker Cigarettes 3 Smokeless Tobacco: Never Used Comments: started at age 19, smokes abou t 2-3 cig/day Alcohol Use Drinks/Week oz/Week Comments Yes on occassion soc ially Alcohol Habits Answer Date Recorded How often do you have a drink containing alcohol? Never 09/13/2018 How many drinks containing alcohol do you have on a typical Not asked day when you are drinking? How often do you have six or more drinks on one occasion? No t asked Sex Assigned at Date Recorded Not on file documented as of this encounter Last Filed Vital Signs Not on filedocumented in this encounter Plan of Treatment Date Type Specialty Care Team Description 03/06/2020 Office Visit [facility] Paresh Vázquez, ROOF ASSEMBLER [address] [id number] 15 [phone] Health Maintenance Due Date Last Done Comments VARICELLA VACCINES (2 of 2 - 2001 11/07/1998 2-dose childhood series) MENINGOCOCCAL B VACCINES (1 of 10/06/2007 2 - Risk Bexsero 2-dose series) HPV VACCINES (1 - 2-dose 2008 series) Depression Screening 2009 DTaP,Tdap,and Td Vaccines (4 - 2016 07/26/1998, Tdap) 05/14/1998, 1995 PAP SMEAR 2018 CHLAMYDIA SCREENING 09/14/2019 09/13/2018, 09/13/2018 INFLUENZA VACCINE (#1) 2019 MENINGOCOCCAL VACCINE Aged Out No longer eligible based on patient's age to complete this to pic PNEUMOCOCCAL 0-64 YEARS Aged Out No longe r eligible based COMBINED SERIES on patient's age to complete this to pic documented as of this encounter Procedures Procedure Name Priority Date/Time Associated Diagnosis Comme nts CONSENT/REFUSAL FOR Routine 03/06/2020 12:48 PM SOLUTION LEAD DIAGNOSIS AND TREATMENT documented in this encounter Results Not on filedocumented in this encounter Insurance Payer Benefit Plan Subscriber ID Effective Dates Phone Address Type / Group [employer] [place] [id number] 2020-Prese [phone] [address] PPO/POS [place] - OUT OF nt [id number] [place] [address] documented as of this encounter
--- OUTSIDE RECORDS SUMMARY | 2020-03-20 12:36 | XMS REPORT | Summary of Care ---
:1995 Author Organization [facility] Address [address] [place] [id number] Care Team Providers Name Role Phone Rocio Vázquez Primary Care Provider Reason for Visit Reason Comments Well Woman Exam Encounter Details Date Type Department Care Team Description 03/06/2020 Office Visit [facility]- Paresh Vázquez for surveillance of other contraceptive (Primary Dx); AMOS Meehan Nexplanon in place; [address] [facility] woma n exam; [facility] Screening examination for STD (sexually transmitted disease); [place] [id number] Tobacco use disorder [id number] Allergies No Known Allergiesdocumented as of this encounter (statuses as of 03/06/2020) Medications Medication Sig Dispensed Refills Start Date End Date Status norgestimate-ethin Take 1 tablet 1 Package 3 09/27/20182020 Discontinued yl estradiol by mouth (ORTHO TRI-CYCLEN, daily. 28,) 0.18/0.215/0.25 mg-35 mcg (28) tabletIndications: control [...] Use Types Packs/Day Years Used Date Current Some Day Smoker Cigarettes 3 Smokeless Tobacco: Never Used Comments: started at age 19, smokes abou t 2-3 cig/day Alcohol Use Drinks/Week oz/Week Comments Yes 1 Glasses of wine 1.0 on occassion s ocially Alcohol Habits Answer Date Recorded How often do you have a drink containing alcohol? 2-4 times a month 03/06/2020 How many drinks containing alcohol do you have on a Not aske d 03/06/2020 typical day when you are drinking? How often do you have six or more drinks on one Not asked 03/06/2020 occasion? 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 There are many types of control. Some are more effective than others. New types are being tested all the time. Your healthcare provider can help you decide which type of control is best for you. But no matter which type you choose, you and your partnermust use it the right way each time you have sex.Some of the most common types are described below. Condom A condom is a thin covering that fits over the penis. (The female condom fits inside the vagina.) A condom catches sperm that come out of the penis during sex. Spermicide Spermicide is a gel, foam, cream, tablet, or sponge (although the sponge has barrier properties in addition to spermicidal properties). It is put in the vagina before sex to kill sperm. Diaphragm and cervical cap Diaphragms and cervical caps are round rubber cups that keep sperm out of the uterus. They also holdspermicide in place. Intrauterine device (IUD) An IUD is a small device that is placed in the uterus by a healthcare provider to prevent . The pill The control pill is taken daily. It contains hormones that stop a womans body from releasing an egg each month. Other hormones Hormones that stop a womans egg from being released each month can be delivered in other ways. These include injection, implant, patch, or vaginal ring. Other choices Here are some other control methods: Male sterilization (vasectomy). Thisis surgery that ties off or cuts the tubes (vas deferens) in the testes. This is done so spermcan'tcome out when the man ejaculates. Female sterilization. Thisis surgery to block or cut the woman's fallopian tubes. It can be done by placing a tool into the uterus (hysteroscopy). This is done toplacesmall coils into the fallopian tubes. The FDA has placed restrictions on this method. If you are interested in this method, talk with your healthcare provider about possible risks. Female sterilization can also be donethroughthe belly (laparoscopy) to block the tubes. Or to removepart or all of the tubes. Withdrawal method. This is when the male doesn't ejaculate into the vagina. Instead he withdraws his penis justbefore he ejaculates. But the failure rate for this method ranges from 22% to 28%. Fertility awareness method. This is when a woman keeps track of her fertile days. She only has sex at times when she is not likely to get . This method is hard for women who have irregular periods. Emergency contraception (EC) Emergency contraception can help prevent after unprotected sex. Hormone pills (morning after pills) are available over the counter to anyone. A second type of EC, a copper IUD, needs to be inserted by a trainedhealthcare provider. Either type of EC can be used up to 5 days after sex. But it should be taken as soon as possible. The sooner it is used after unprotected sex, the more likely it is to be effective. EC will not work if youre already . Things to consider Think about the following: Choose a type of control that is easy for you to use. Read the package and follow your healthcare provider's instructionsto learn to use your control the right way. Most forms of control don't protect you from sexually transmitted infections (STIs). To protect against STIs, always use a latex condom. If you are allergic to latex, a nonlatex condom may offer some protection. [employer] last reviewed this educational content on 07/17/201819997196-3970 [employer]. All rights reserved. This information is not intended as a substitute for professional medical care. Always follow your healthcare professional's instructions. Patient Education Clinical Breast Exam Many health organizations recommend a yearly clinical breast exam. This exam may be done by a paralegal internship, family healthcare provider, nurse practitioner, nurse jerker, or specially trained nurse. Yearly breast exams help tomake surethat breast conditions are found early. Your healthcare providers role A healthcare professional knows the tests and follow-up care needed if a problem is found. Your clinical exam is also a great time to ask questions about breast self-exams. You can find out if yourechecking your breasts in the best way. Or you may want to ask how , breast implants, or breast reduction surgery affect the way you should check your breasts. Diagnostic tests If a clinical exam reveals a breast change, you may have other tests to find out more. These tests may include: Mammography. A low-dose X-ray of your breast tissue. Ultrasound. An imaging test that uses sound waves to create images of your breast. Biopsy. A small amount of breast tissue is removed by needle or by a cut (incision). The tissue is then checked under a microscope. Guidelines for having clinical breast exams The [place] [employer] recommends that starting at age 29, you should have a clinical breast exam every 1 to 3 years. After age 40, have a clinical breast exam each year. If youre at higher risk for breast cancer, you may need exams more often. Risk factors for breast cancer may include: Being over 50 or postmenopausal Having a family history of breast cancer Having the BRCA1 or BRCA2 gene mutation or certain other gene mutations Having more menstrual periods due to starting menstruation early(before age 12) or having a late menopause (after age 55) Having no pregnancies Having a first after age 30 Being obese Having a history of radiation treatment to your chest area Exposure to ROBERT during your mother's Not being active Drinking too much alcohol Having dense breast tissue Taking hormone therapy after menopause Other health organizations have different recommendations. Talk with your healthcare provider about what is best for you. [employer] last reviewed this educational content on 05/18/201919998204-1891 [employer]. All rights reserved. This information is not intended as a substitute for professional medical care. Always follow your healthcare professional's instructions. Patient Education Breast Health: Breast Self-Awareness What is breast self-awareness? Breast self-awareness is knowing how your breasts normally look and feel. Your breasts change as yougo through different stages of your life. So its important to learn what is normal for your breasts. Knowing about your breasts helps you spot any changes in them right away. Tell your healthcare provider about any changes. Why is breast self-awareness important? Many experts now say that women should focus on breast self-awareness instead of doing a breast self-examination (BSE). These experts include the [place] [employer] and the [place] [employer]. Some experts even advise not teaching women to do a BSE. Thats because research hasnt shown a clear benefit to doing BSEs. Breast self-awareness is different than a BSE. It isnt about following a certain method and schedule. Its about knowing what's normal for your breasts. That way you can spot even small changes right away. If you see any changes, tell your healthcare provider. Changes to look for Call your healthcare provider if you find any changes in your breasts that worry you. These changes may be: A lump Nipple discharge other than breast milk, especially if it's bloody Swelling A change in size or shape Skin changes, such as redness, thickening, or dimpling of the skin Swollen lymph nodes in the armpit Nipple problems, such as pain or redness If you find a lump Call your provider if you find lumpiness in one breast. Also call if you feel something different inthe tissue or feel a definite lump. Sometimes lumpiness may be due to menstrual changes. But there may be reason for concern. Your provider may want to see you right away if you have: Nipple discharge that is bloody Skin changes on your breast, such as dimpling or puckering Its okay to be upset if you find a lump. Be sure to call your provider right away. Remember that most breast lumps are benign. This means they are not cancer. [employer] last reviewed this educational content on 06/17/201919995966-5903 [employer]. All rights reserved. This information is not intended as a substitute for professional medical care. Always follow your healthcare professional's instructions. Patient Education The Range of Pap Test Results When your Pap test is sent to the lab, the lab studies your cell samples and reports any abnormal cell changes. Your healthcare provider can discuss these changes with you. In some cases, an abnormal Pap test is due to an infection. More serious cell changes range from dysplasia to cancer. Talk to your healthcare provider about your Pap test. Normal results Cervical cells, even normal ones, are always changing. As they mature, normal squamous cells move from deeper layers within the cervix. Over time, these cells flatten and cover the surface of the cervix. Within the cervical canal, the cells are different. These glandular cells are taller and not as flat as the cells on the surface of the cervix. When a Pap test sample shows healthy cells of both types, the results are negative. Keep having Pap tests as often as directed. Abnormal results A positive Pap test result means some cells in the sample showed abnormal changes. These results aregrouped by the type of cell change and the location, or extent, of the changes. Depending on the results, you may need further testing. Inflammation. Noncancerous changes are present. They may be due to normal cell repair. Or they may be caused by an infection, such as HPV or yeast. Further testing may be needed. (Also called reactive cellular changes.) Atypical squamous cells. Test results are unclear. Cells on the surface of the cervix show changes, but their significance is not yet known. Testing for HPV and other sexually transmitted infections(STIs) may be needed. Treatment may be required. (Reported as ASC-US or ASC-H.) Atypical glandular cells. Cells lining the cervical canal show abnormal changes. Further testing is likely. You may also have treatment to destroy or remove problem cells. (Reported as AGC.) Mild dysplasia. Cells show distinct changes. More testing or HPV typing may be done. You may alsohave treatment to destroy or remove problem cells. (Reported as low-grade JAYME or JORGE LUIS 1.) Moderate to severe dysplasia. Cells show precancerous changes. Or noninvasive cancer (carcinoma in situ) may be present. Treatment to destroy or remove problem cells is likely. (Reported as high-grade JAYME or JORGE LUIS 2 or JORGE LUIS 3.) Cancer. Different types of cancer may be detected by your Pap test. More tests to assess the cancer's extent are likely. The type of treatment will depend on the test results and other factors, suchas age and health history. (Reported as squamous cell carcinoma, endocervical adenocarcinoma in situ, or adenocarcinoma.) [employer] last reviewed this educational content on 07/18/201919990012-3824 [employer]. All rights reserved. This information is not intended as a substitute for professional medical care. Always follow your healthcare professional's instructions. Patient Education Why Have a Pap Test? Early on, cervical changes don't cause symptoms. Often the only way to know you have cervical changes is to do a Pap test. A Pap test can find these problems early, when they are easier to treat. Pap tests can also find some infections of the cervix and vagina. What is a Pap test? A Pap test is a procedure that helps find changes in the cervix that may lead to cancer. The cervix is the part of the uterus that opens into the vagina. For this test, a small sample of cells is takenfrom the cervix. This is done in your healthcare providers office. The cells are then analyzed [facility]. A Pap test is a safe procedure. It takes just a few minutes and causes little or no discomfort. The HPV connection Human papillomavirus (HPV) is a family of viruses that spread through skin contact. Certain types are almost always spread through sexual contact. Some HPV types cause genital warts (condyloma). But not all types of HPV cause symptoms you can see. Certain types cause cell changes (dysplasia) in the cervix that can lead to cancer.In fact, HPV infection is the most important risk factor for cervical cancer. Healthcare providers can now test for HPV. Testing for HPV is often done with the Pap test.Thats why its important to have Pap tests as advised by your healthcare provider. This helps ensure that any abnormal cells will be found and treated before they become cancer. Who should have a Pap test and HPV test? Ask your healthcare provider when to start having Pap tests, if you should have an HPV test done at the same time, and how often to have them. Follow these guidelines from the [place] [employer] for cervical cancer screening: A first Pap testat age 21, and then every 3 years until age 29. HPV testing is not advised during this time. But it may be done to follow up on an abnormal Pap test. Starting at age 30, the preferred testing is a Pap test done with an HPV test every 5 years. Thisshould be done until age 65. Another option for women in this 30 to 65 age group is to have just thePap test done every 3 years. You may need a different screening schedule if you are at high risk for cervical cancer.Risk factors include having HIV, a weak immune system, or exposure to the medicine ROBERT while your mother was with you. Talk with your provider about the best schedule for you. If youre over65 and have had regular screenings for the last 10 years with no abnormal results in the last 20 years,you may stop cervical cancer screening. If you had a hysterectomy that included removing your cervix, you can stop screening unless the hysterectomy was done to treat cervical cancer or precancer. If you still have your cervix after the hysterectomy, you should keep screening according to the above guidelines. Routine testing doesn't need to be done each year. But if your test is abnormal, your provider will let you know how often to be tested. Women who have been vaccinated for HPV should still follow these guidelines. If you have had cervical cancer, talk with your provider about the screening plan that's best foryou. [employer] last reviewed this educational content on 07/18/201919992463-4265 The [employer]. All rights reserved. This information is not intended as a substitute for professional medical care. Always follow your healthcare professional's instructions. Patient Education Pap Test A speculum is used to open the vagina so cells can be taken from the cervix. Schedule your test for a time when you will not be having your menstrual period. If youre menstruating at the time of your appointment, call your healthcare provider to ask if you should reschedule. For 48 hours before the test Don't douche. Don' use vaginal medicines, creams, or spermicides. For 24 hours before the test Don't have sex. How the test is done 1. You lie on an exam table with your feet in stirrups (foot rests). This is the usual position for a pelvic exam (an exam of the reproductive organs). 2. Your healthcare provider uses a speculum (a metal or plastic instrument) to gently open the vagina. 3. Cells are taken from the cervix with a small spatula or rubber broom. A small brush may then be used to remove cells from inside the cervical canal. You may feel pressure or slight discomfort. Preserving the sample There are 2 ways to preserve the sample after it is taken: Traditional preservation.With this method, the sample is smeared directly onto a glass microscope slide. The sample is then sent to a lab to be analyzed. Liquid-based preservation.The sample is placed in a special preservative solution. At the lab, cervical cells are from blood and mucous cells and spread onto a slide. Screening for humanpapillomavirus (HPV)can also be done using the same sample. After the test Youre free to go! There is a slight chance of light bleeding or spotting. Your healthcare provider will tell you when to expect your test results. Getting your results Ask your healthcare provider how you will receive your results. You should always obtain and understand results of any testing you have done. These may be obtained by phone, mail, or through online access if available: Normal result.The cells in the sample appear healthy. Have your next Pap test as recommended byyour healthcare provider. Abnormal result.The lab saw something unusual in your sample. Talk with your healthcare provider about what the results mean. You may need to repeat the Pap test or have other tests to evaluate the problem. [employer] last reviewed this educational content on 02/16/201919995524-4104 The [employer]. [address] [place] [address]. All rights reserved. This information is not intended as a substitute for professional medical care. Always follow your healthcare professional's instructions. Patient Education Understanding HPV (Human Papillomavirus) HPV (human papillomavirus) is a virus that causes warts. It can be hard to detect, so many people never even know they have it. Some types (strains) of HPV may cause warts on the hands, legs, or other parts of the body. These can spread from person to person. Other strains of HPV cause wartsin the genital area. A few of these strains can cause certain cancers: Cancers of the cervix, vagina, and vulva in women Cancers of the penis in men Cancers of the anus and back of the throat, including the base of the tongue and tonsils in both women and men . Treating genital forms of HPV now can help prevent serious health problems in the future. How was I infected? HPV is passed from person to person through contact with infected skin. Everyone with HPV has a different experience. Some people notice genital warts (condyloma) within a few months of exposure. In other people, warts take years to appear or may never appear. This makes it almost impossible to know when or by whom you were infected. How warts form HPV lives inside skin and mucous membrane (including in the mouth and vagina). The virus can make skin cells reproduce more often than they should. These extra skin cells build up into warts. 1. HPV invades the skin. 2. DNA from the virus enters skin cells. 3. HPV causes infected skin cells to multiply and form warts. 4. The virus sheds, allowing it to be passed to others. [employer] last reviewed this educational content on 07/17/201819994404-9316 [employer]. [address] [place] [address]. All rights reserved. This information is not intended as a substitute for professional medical care. Always follow your healthcare professional's instructions. Patient Education Prevention Guidelines,Women Ages 18 to 39 Screening tests and vaccines are an important part of managing your health. A screening test is doneto find possible disorders or diseases in people who don't have any symptoms. The goal is to find a disease early so lifestyle changes can be made and you can be watched more closely to reduce the riskof disease, or to detect it early enough to treat it most effectively. Screening tests are not considered diagnostic, but are used to determine if more testing is needed. Health counseling is essential, too. Below are guidelines for these, for women ages 18 to 39. Talk with your healthcare provider tomake sure youre up-to-date on what you need. Screening Who needs it How often Alcohol misuse All women in this age group At routine exams Blood pressure All women in this age group Yearly checkup if your blood pressure is normal Normal blood pressure is less than 120/80 mm Hg If your blood pressure reading is higher than normal, follow the advice of your healthcare provider Breast cancer All women in this age group should talk with their healthcare providers about the needfor clinical breast exams (CBE)1 Clinical breast exam every 3 years1 Cervical cancer Women ages 21 and older Women between ages 21 and 29 should have a Pap test every 3years; women between ages 30 and 65 are advised to have a Pap test plus an HPV test every 5 years Chlamydia Sexually active women ages 24 and younger, and women at increased risk for infection Every 3 years if you're at risk or have symptoms Depression All women in this age group At routine exams Diabetes mellitus, type 2 Adults with no symptoms who are overweight or obese and have 1 or more other risk factors for diabetes At least every 3 years. Also, testing for diabetes during after the 24th week. Gonorrhea Sexually active women at increased risk for infection At routine exams Hepatitis C Anyone at increased risk At routine exams HIV All women At routine exams3 Obesity All women in this age group At routine exams Syphilis Women at increased risk for infection should talk with their healthcare provider At routine exams Tuberculosis Women at increased risk for infection should talk with their healthcare provider Ask your healthcare provider Vision All women in this age group At least 1 complete exam in your 20s, and 2 in your 30s Vaccine Who needs it How often Chickenpox (varicella) All women in this age group who have no record of this infection or vaccine2 doses; the second dose should be given 4 to 8 weeks after the first dose Hepatitis A Women at increased risk for infection should talk with their healthcare provider 2 doses given at least 6 months apart Hepatitis B Women at increased risk for infection should talk with their healthcare provider 3 doses over 6 months; second dose should be given 1 month after the first dose; the third dose should be given at least 2 months after the second dose and at least 4 months after the first dose Haemophilus influenzae Type B (HIB) Women at increased risk for infection should talk with their healthcare provider 1 to 3 doses Human papillomavirus (HPV) All women in this age group up to age 26 3 doses; the second dose should be given 1 to 2 months after the first dose and the third dose given 6 months after the first dose Influenza (flu) All women in this age group Once a year Measles, mumps, rubella (MMR) All women in this age group who have no record of these infections orvaccines 1 or 2 doses Meningococcal Women at increased risk for infection should talk with their healthcare provider 1 ormore doses Pneumococcal conjugate vaccine (PCV13)and pneumococcal polysaccharidevaccine(PPSV23) Women atincreased risk for infection should talk with their healthcare provider PCV13: 1 dose ages 19 to 65(protects against 13 types of pneumococcal bacteria) PPSV23: 1 to2 doses through age 64, or 1 dose at 65 or older (protects against 23 types of pneumococcal bacteria) Tetanus/diphtheria/pertussis (Td/Tdap) booster All women in this age group Td every 10 years, or a one-time dose of Tdap instead of a Td booster after age 18, then Td every 10 years Counseling Who needs it How often BRCA gene mutation testing for breast and ovarian cancer susceptibility Women with increased risk for having gene mutation When your risk is known Breast cancer and chemoprevention Women at high risk for breast cancer When your risk is known Diet and exercise Women who are overweight or obese When diagnosed, and then at routine exams Domestic violence Women at the age in which they are able to have children At routine exams Sexually transmitted infection prevention Women who are sexually active At routine exams Skin cancer Prevention of skin cancer in fair-skinned adults At routine exams Use of tobacco and the health effects it can cause All women in this age group Every visit 1 According to the ACS, women ages 20 to 39 years should have a clinical breast exam (CBE) as part of their routine health exam every 3 years. Breast self-exams are an option for women starting in their 20s.But the U.S. Preventive Services Task Force (USPSTF) does not recommend CBE. 2 Those who are 18 years old and not up-to-date on their childhood vaccines should get all appropriate catch-up vaccines recommended by the CDC. 3 The USPSTF recommends that all people ages 15 to 65 years be screened for HIV and those younger orolder people at increased risk. The CDC recommends that everyone between the ages of 13 and 64 get tested for HIV at least once as part of routine health care. [employer] last reviewed this educational content on 11/16/201619995946-8933 The [employer], [employer]. All rights reserved. This information is not intended as a substitute for professional medical care. Always follow your healthcare professional's instructions. Patient Education What Are Sexually Transmitted Infections (STIs)? A sexually transmitted infection (STI) is an infection that is spread during sex. An STI can also becalled STD for sexually transmitted disease. You can become infected with an STI if you have sex with someone who has an STI. Any sex that involves the penis, vagina, anus, or mouth can spread these infections. Some STIs also spread through body fluids such as semen, vaginal fluid, or blood. Others spread through contact with infected skin. The most common STIs are chlamydia, genital warts , genital herpes, syphilis, HIV, gonorrhea, and trichomoniasis. Who is at risk? It doesnt matter if youre straight or thomas, male or female, young or old. Any person who has sex can get an STI. Your risk increases if: You have more than one partner. The more partners you have, the greater your risk. Your partner has other partners. If your partner is exposed to an STI, you could be, too. You or your partner have had sex with other people in the past. Either of you might be carrying an STI from an earlier partner. You have an STI. The STI may cause sores or other health problems that increase your risk for newinfections. Your risk will stay high unless you are treated for your current STI and change the behaviors that put you at risk. Prevent future problems Left untreated, certain STIs can lead to cancer or, rarely, . Some can harm unborn babies whosemothers are infected. Others can cause you to not be able to have children (sterility) or can affectchanges in behavior or your ability to think. You can prevent these problems with safer sex, regularcheckups, and early treatment. Always use a latex condom when you have sex. Get tested if youre at risk. And get treated early if you have an STI. Using a latex condom every time you have sex can reduce your risk of STIs. Getting checked The only sure way to know if you have an STI is to get checked by a healthcare provider. If you notice a change in how your body looks or feels, have it checked out. But keep in mind, STIs dont always show symptoms. So if youre at risk for STIs, get checked regularly. If you find you have an STI, have your partner get treatment. If not, his or her health is at risk. And left untreated, your partner could pass the STI back to you, or on to others. Common symptoms Be alert to any changes in your body and your partners body. Symptoms may appear in or near the vagina, penis, rectum, mouth, or throat. They may include: Unusual discharge Lumps, bumps, or rashes Sores that may be painful, itchy, or painless Itchy skin Burning with urination Pain in the pelvis, belly (abdomen), or rectum Bleeding from the rectum Even if you dont have symptoms You may have an STI even if you dont have symptoms. If you think you are at risk, get checked. Goto a clinic or to your healthcare provider. If your partner has an STI, you need to be tested even if you feel fine. Vaccines to prevent disease Vaccines are available to prevent hepatitis A and hepatitis B. These are 2 kinds of STIs. There is also a vaccine to prevent human papillomavirus (HPV). This is a virus that can be passed from person to person through sexual contact. Ask your healthcare provider whether any of these vaccines is right for you. [employer] last reviewed this educational content on 01/16/201819997990-8567 The [employer]. All rights reserved. This information is not intended as a substitute for professional medical care. Always follow your healthcare professional's instructions. Patient Education Human Papillomavirus Quadrivalent Vaccine suspension for injection What is this medicine? HUMAN PAPILLOMAVIRUS VACCINE ([facility]) is a vaccine. It is used to prevent infections of four types of the human papillomavirus. In women, the vaccine may lower yourrisk of getting cervical, vaginal, vulvar, or anal cancer and genital warts. In men, the vaccine maylower your risk of getting genital warts and anal cancer. You cannot get these diseases from the vaccine. This vaccine does not treat these diseases. How should I use this medicine? This vaccine is for injection in a muscle on your upper arm or thigh. It is given by a health rn wound care. You will be observed for 15 minutes after each dose. Sometimes, fainting happens after the vaccine is given. You may be asked to sit or lie down during the 15 minutes. Three doses are given. The second dose is given 2 months after the first dose. The last dose is given 4 months after the second dose. A copy of a Vaccine Information Statement will be given before each vaccination. Read this sheet carefully each time. The sheet may change frequently. Talk to your roll press operator regarding the use of this medicine in children. While this drug may be prescribed for children as young as 9 years of age for selected conditions, precautions do apply. What side effects may I notice from receiving this medicine? Side effects that you should report to your doctor or health rn wound care as soon as possible: allergic reactions like skin rash, itching or hives, swelling of the face, lips, or tongue breathing problems feeling faint or lightheaded, falls Side effects that usually do not require medical attention (report to your doctor or health rn wound care if they continue or are bothersome): cough dizziness fever headache nausea redness, warmth, swelling, pain, or itching at site where injected What may interact with this medicine? other vaccines What if I miss a dose? All 3 doses of the vaccine should be given within 6 months. Remember to keep appointments for follow-up doses. Your health care provider will tell you when to return for the next vaccine. Ask your health rn wound care for advice if you are unable to keep an appointment or miss a scheduled dose. Where should I keep my medicine? This drug is given in a hospital or clinic and will not be stored at home. What should I tell my health care provider before I take this medicine? They need to know if you have any of these conditions: fever or infection hemophilia HIV infection or AIDS immune system problems low platelet count an unusual reaction to Human Papillomavirus Vaccine, yeast, other medicines, foods, dyes, or preservatives or trying to get breast-feeding What should I watch for while using this medicine? This vaccine may not fully protect everyone. Continue to have regular pelvic exams and cervical or anal cancer screenings as directed by your doctor. The Human Papillomavirus is a sexually transmitted disease. It can be passed by any kind of sexual activity that involves genital contact. The vaccine works best when given before you have any contact with the virus. Many people who have the virus do not have any signs or symptoms. Tell your doctor or health rn wound care if you have any reaction or unusual symptom after getting the vaccine. NOTE:This sheet is a summary. It may not cover all possible information. If you have questions aboutthis medicine, talk to your doctor, pharmacist, or health care provider. Copyright 2018 [employer] Patient Education 5 Steps for Eating Healthier Changing the way you eat can improve your health. It can lower your cholesterol and blood pressure, and help you stay at a healthy weight. Your diet doesnt have to be bland and boring to be healthy.Just watch your calories and follow these steps: Step 1. Eat fewer unhealthy fats Choose more fish and lean meats instead of fatty cuts of meat. Skip butter and lard, and use less margarine. Pass on foods that have palm, coconut, or hydrogenated oils. Eat fewer high-fat dairy foods like cheese, ice cream, and whole milk. Get a heart-healthy cookbook and try some low-fat recipes. Step 2.Go light on salt Keep the saltshaker off the table. Limit high-salt ingredients, such as soy sauce, bouillon, and garlic salt. Instead of adding salt when cooking, season your food with herbs and flavorings. Try lemon, garlic, and onion, or salt-free herb seasonings. Limit convenience foods, such as boxed or canned foods and restaurant food. Read food labels and choose lower-sodium options. Step 3. Limit sugar Pause before you add sugars to pancakes, cereal, coffee, or tea. This includes white and brown table sugar, syrup, honey, and molasses. Cut your usual amount by half. Use non-sugar sweeteners. Stevia, aspartame, and sucralose can satisfy a sweet tooth without adding calories. Swap out sugar-filled soda and other drinks. Buy sugar-free or low-calorie beverages. Remember water is always the best choice. Read labels and choose foods with less added sugar. Keep in mind that dairy foods and foods with fruit will have some natural sugar. Cut the sugar in recipes by 1/3 to 1/2. Boost the flavor with extracts like almond, vanilla, or orange. Or add spices such as cinnamon or nutmeg. Step 4. Eatmore fiber Eat fresh fruits and vegetables every day. Boost your diet with whole grains. Go for oats, whole-grain rice, and bran. Add beans and lentils to your meals. Drink more water to match your fiber increase to help prevent constipation. Step 5. Pay attention to serving sizes Remember that a serving size is a standard measurement. It will let you track the amount of fat, calories, and other nutrients in the food you eat. Read the Nutrition Facts label on packaged foods to learn their serving sizes. Use serving sizes to assess how much food you put on your plate. Pay attention to your portions. How many servings are you eating? Keep in mind that your needs may change if youre more active or less active, or if you have other factors that change your calorie needs. Use your hand to help you measure serving sizes. For example: ? 1 teaspoon: This is about the size of the first joint of your thumb. ? 1 tablespoon: This is about the size of the first 2 joints of your thumb. ? 1 ounce: This is about what you can fit in your cupped hand. ? 2 to 3 ounces: This is about size of the palm of your hand. ? cup: This is also about what you can fit in your cupped hand. ? 1 cup: This is about the size of your fist. [employer] last reviewed this educational content on 08/17/201919993898-9405 The [employer]. All rights reserved. This information is not intended as a substitute for professional medical care. Always follow your healthcare professional's instructions. 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 Patient denies any abdominal/pelvic pain. Patient denies any other concerns. Patient reports LMP was 02/01/2020. Patient reports last sexual intercourse was on 03/05/2020 and desires to use Nexplanon for BCM and desires removal. Patient desires need for STD/STI testing. Patient denies current or past physical, sexual or emotional abuse. Histories OB History Para Term AB Living 0 0 0 0 0 0 SAB TAB Ectopic Multiple Live Births 0 0 0 0 0 Past Medical History: Diagnosis Date Asthma not on medication, has not had an asthma attack since childhood. Screening examination for STD (sexually transmitted disease) 09/14/2018 Family History Problem Relation Age of Onset [...] Financial resource strain: Not on file Food insecurity Worry: Not on file Inability: Not on file Transportation needs Medical: Not on file Non-medical: Not on file Tobacco Use Smoking status: Current Some Day Smoker Years: 3.00 Types: Cigarettes Smokeless tobacco: Never Used Tobacco comment: started at age 19, smokes about 2-3 cig/day Substance and Sexual Activity Alcohol use: Yes Alcohol/week: 1.0 standard drinks Types: 1 Glasses of wine per week Frequency: 2-4 times a month Comment: on occassion socially Drug use: Never Sexual activity: Yes Partners: Male control/protection: Implant Comment: last sexual intercourse 03/05/2020 Lifestyle Physical activity Days per week: Not on file Minutes per session: Not on file Stress: Not on file Relationships Social connections Talks on phone: Not on file Gets together: Not on file Attends shinto service: Not on file Active member of club or organization: Not on file Attends meetings of clubs or organizations: Not on file Relationship status: Not on file Intimate partner violence Fear of current or ex partner: Not on file Emotionally abused: Not on file Physically abused: Not on file Forced sexual activity: Not on file Other Topics Concern Not on file Social History Narrative Patient lives with boyfriend. Ep[employer]opalian preference: congregational. Pt denies current or past physical, sexual or emotional abuse. Social History Substance and Sexual Activity Sexual Activity Yes Partners: Male control/protection: Implant Comment: last sexual intercourse 03/05/2020 Labs Labs are pending. Radiology No new [...] intolerance, weight gain and weight loss. BP 108/61 (BP Location: Right arm, Patient Position: Sitting, BP CUFF SIZE: Adult Small) | Pulse 64 | Temp 36.9 C (98.5 F) (Oral) | Resp 16 | Ht 5' 5" (1.651 m) | Wt 127 lb 1.6 oz (57.7 kg) |LMP 02/01/2020 (Exact Date) | BMI 21.15 kg/m Pregravid BMI: Could not be calculated Physical [...] normal. No lesion and no rash present. Nexplanon in place Breast: Right breast exhibits no mass, no nipple discharge and no tenderness. Left breast exhibits no mass, no nipple discharge and no tenderness. Normal left breast and normal right breast Rectal: normal rectum External genitalia: Normal external genitalia appropriate for age. Normal hair distribution. No labial lesion. Vagina:Normal vagina. No lesion inspected. No abnormal vaginal discharge found. No lesions in thevagina. Cervix: Normal cervix. No lesion. No tenderness and no discharge present. Uterus: Uterus is normal size and non-tender. Normal uterus Adnexa: Right adnexa without tenderness or mass. Left adnexa without tenderness or mass. Normal leftadnexa and normal right adnexa Anus/perineum: Normal perineum. Assessment/Plan Rubella:1998 VZV:1998 BMI:21.15 Td:1998 Pap Smear:done today Gardasil:N/A Mammogram:N/A Guaiac:N/A Colonoscopy:N/A Encounter for surveillance of other contraceptive (primary encounter diagnosis) Nexplanon in place Comment: Nexplanon in place Plan: patient desires removal and something else for BCM.Will RTC for remobal Well woman exam Comment: Routine WWE Plan: PAP Smear-Liquid Based Denies zika virus risk, signs and symptoms such as fever,rash,joint pain, conjunctivitis (red eyes), muscle pain, headaches; outside [place] travel to areas affected by zika, and FOB exposure to zika.Educated on use of mosquito repellent. Covid x12 screening done, screening results are negative. Screening examination for STD (sexually transmitted disease) Comment: patient desires testing Plan: GC & CHLAMYDIA AMPLIFIED ASSAY, TRICHOMONAS AMPLIFIED ASSAY Tobacco use disorder Comment: current smoker Plan: Smoking cessation discussed. 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 Return to clinic in 1-2 weeks. Discussed treatment options. Medications as ordered. Reviewed patient instructions and provided printed copy. This visit did not involve counseling and coordination that comprised more than 50% of the visit time. AMOS Monahan 03/06/2020 2:13 PM Nely Jameson RN - 03/06/2020 1:00 PM CST24 year old presented to the clinic for WWE. 1) Previous BCM: Nexplanon 02/28/2020 2) Desired BCM: undecided 3) LMP: 02/01/2020 4) Last [place]: 03/05/2020 5) Last Pap: unknown Results: N/a HPV Results n/a 6) Tdap in last 10 years? Yes 7) HPV Vaccine: unknown 8) C/O: none 9) Patient denies history of physical, emotional, or sexual abuse. Patient states she currently feels safe at home. 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 & CHLAMYDIA AMPLIFIED LAB Routine Screening examin ation 03/06/2020 2:19 PM ASSAY for STD (sexually RADIATOR REPAIRER transmitted disease) TRICHOMONAS AMPLIFIED LAB Routine Screening examinati on 03/06/2020 2:19 PM ASSAY for STD (sexually RADIATOR REPAIRER transmitted disease) Name Type Priority Associated Diagnoses Order S chedule PAP Smear-Liquid Based LAB Routine Well woman exam Ex pected: 03/06/2020, Expires: 2021 GC & CHLAMYDIA AMPLIFIED LAB Routine Screening examin ation for Expected: 03/06/2020, ASSAY STD (sexually transmitted Ex laura: 03/06/2021 disease) TRICHOMONAS AMPLIFIED LAB Routine Screening examinati on for Expected: 03/06/2020, ASSAY STD (sexually transmitted Ex laura: 03/06/2021 disease) Health Maintenance Due Date Last Done Comments INFLUENZA VACCINE (#1) 2020 Postponed from 10/18/2019 (Refused) CHLAMYDIA SCREENING 03/06/2021 03/06/2020, 09/13/2018, 09/13/2018 DTaP,Tdap,and Td Vaccines (4 03/06/2021 07/26/1998, Pos tponed from 2016 - Tdap) 05/14/1998, (Refused) 1997 Depression Screening 03/06/2021 03/06/2020 HPV VACCINES (1 - 2-dose 03/06/2021 Postpon ed from 2008 series) (Refused) MENINGOCOCCAL B VACCINES (1 03/06/2021 Post poned from 10/06/2007 of 2 - Risk Bexsero 2-dose (Refu sed) series) PNEUMOCOCCAL 0-64 YEARS 03/06/2021 Postpone d from 10/06/2003 COMBINED SERIES (1 of 1 - (Refus ed) PPSV23) VARICELLA VACCINES (2 of 2 - 03/06/2021 11/07/1998 Pos tponed from 2001 2-dose childhood series) (Refuse d) PAP SMEAR 03/06/2023 03/06/2020 MENINGOCOCCAL VACCINE Aged Out No longer eligible based on patient's age to complete this to pic documented as of this encounter Results Not on filedocumented in this encounter Visit Diagnoses Diagnosis Encounter for surveillance of other cont raceptive - Primary Nexplanon in place Presence of subdermal contraceptive shiva ce Well woman exam Routine general medical examination at a health care facility Screening examination for STD (sexually transmitted disease) Screening examination for venereal disea se Tobacco use disorder documented in this encounter Insurance Payer Benefit Plan Subscriber ID Effective Dates Phone Address Type / Group BCBS OF [facility] [id number] 2020-[place] [phone] [address] PPO/POS [place] - OUT OF nt [id number] [place] [address] (Work) [id number] documented as of this encounter
--- OUTSIDE RECORDS SUMMARY | 2020-03-20 12:36 | XMS REPORT | Summary of Care ---
:1995 Author Organization [facility] Address [address] [place] [address] Care Team Providers Name Role Phone Rocio Vázquez Primary Care Provider Reason for Visit Reason Comments Well Woman Exam Encounter Details Date Type Department Care Team Description 03/06/2020 Office Visit [facility]- Paresh Vázquez for surveillance of other contraceptive (Primary Dx); AMOS Meehan Nexplanon in place; [address] [facility] woma n exam; [facility] Screening examination for STD (sexually transmitted disease); [place] [id number] 15 Tobacco use disorder [id number] Allergies No Known Allergiesdocumented as of this [...] with No / Unsure 03/06/2020 1:15 PM MOLD BREAKER someone who was confirmed or suspected to have Coronavirus / COVID-19? documented as of this encounter Last Filed Vital Signs Vital Sign Reading Time Taken Comments Blood Pressure 108/61 03/06/2020 1:16 PM MOLD BREAKER Pulse 64 03/06/2020 1:16 PM MOLD BREAKER Temperature 36.9 C (98.5 F) 03/06/2020 1:16 PM MOLD BREAKER Respiratory Rate 16 03/06/2020 1:16 PM MOLD BREAKER Oxygen Saturation - - Inhaled Oxygen Concentration - - Weight 57.7 kg (127 lb 1.6 oz) 03/06/2020 1:16 PM MOLD BREAKER Height 165.1 cm (5' 5") 03/06/2020 1:16 PM MOLD BREAKER Body Mass Index 21.15 03/06/2020 1:16 PM MOLD BREAKER documented in this encounter Patient Instructions Patient [...] a nonlatex condom may offer some protection. [employer] last reviewed this educational content on 07/17/201819993650-2660 The [employer]. All rights reserved. This information is not intended as a substitute for professional medical care. Always follow your healthcare professional's instructions. Patient Education Clinical Breast Exam Many health organizations recommend a yearly clinical breast exam. This exam may be done by a high frequency mill operator, family healthcare provider, nurse practitioner, nurse operations manager station, or specially trained nurse. Yearly breast exams [...] Guidelines for having clinical breast exams The [place] College of Obstetricians and Gynecologists recommends that [...] provider about what is best for you. [employer] last reviewed this educational content on 05/18/201919991734-9370 The [employer]. All rights reserved. This information is not [...] breast self-examination (BSE). These experts include the [place] [employer] and the [place] Congress of Obstetricians and Gynecologists. Some experts [...] benign. This means they are not cancer. [employer] last reviewed this educational content on 06/17/201919992278-6879 The [employer]. All rights reserved. This information is not [...] carcinoma, endocervical adenocarcinoma in situ, or adenocarcinoma.) [employer] last reviewed this educational content on 07/18/201919999922-7511 The [employer]. All rights reserved. This information is not [...] have them. Follow these guidelines from the [place] [employer] for cervical cancer screening: A [...] about the screening plan that's best foryou. [employer] last reviewed this educational content on 07/18/201919992463-2586 The [employer]. All rights reserved. This information is not [...] have other tests to evaluate the problem. [employer] last reviewed this educational content on 02/16/201919992087-0557 The [employer]. [address] [place] [address]. All rights reserved. This information is not [...] allowing it to be passed to others. [employer] last reviewed this educational content on 07/17/201819997583-6855 The [employer]. [address] [place] [address]671. All rights reserved. This information is not [...] once as part of routine health care. [employer] last reviewed this educational content on 11/16/201619990945-3647 The [employer], [employer]. All rights reserved. This information is not [...] of these vaccines is right for you. [employer] last reviewed this educational content on 01/16/201819992195-9758 The [employer]. All rights reserved. This information is not intended as a substitute for professional medical care. Always follow your healthcare professional's instructions. Patient Education Human Papillomavirus Quadrivalent Vaccine suspension for injection What is this medicine? HUMAN PAPILLOMAVIRUS VACCINE (HYOO [facility]uhn pap [facility] SEEN) is a vaccine. It is used [...] thigh. It is given by a health long term acute care registered nurse. You will be observed for 15 minutes [...] sheet may change frequently. Talk to your digital media manager regarding the use of this medicine in children. While this drug may be prescribed for children as young as 9 years of age for selected conditions, precautions do apply. What side effects may I notice from receiving this medicine? Side effects that you should report to your doctor or health long term acute care registered nurse as soon as possible: allergic reactions like skin rash, itching or hives, swelling of the face, lips, or tongue breathing problems feeling faint or lightheaded, falls Side effects that usually do not require medical attention (report to your doctor or health long term acute care registered nurse if they continue or are bothersome): cough [...] for the next vaccine. Ask your health long term acute care registered nurse for advice if you are unable to [...] or symptoms. Tell your doctor or health long term acute care registered nurse if you have any reaction or unusual [...] is about the size of your fist. [employer] last reviewed this educational content on 08/17/201919997911-1505 The [employer]. All rights reserved. This information is not intended as a substitute for professional medical care. Always follow your healthcare professional's instructions. BREAKER documented in this encounter Progress Notes Paresh Vázquez, DIVISION SERGEANT - 03/06/2020 1:00 PM CST Chief complaint: [...] file Gets together: Not on file Attends congregation service: Not on file Active member of [...] Social History Narrative Patient lives with boyfriend. Christian preference: pentecostal. 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 Return to clinic in 1-2 weeks. [...] BCM: undecided 3) LMP: 02/01/2020 4) Last [place]: 03/05/2020 5) Last Pap: unknown Results: N/a HPV Results n/a 6) Tdap in last 10 years? Yes 7) HPV Vaccine: unknown 8) C/O: none 9) Patient denies history of physical, emotional, or sexual abuse. Patient states she currently feels safe at home. documented in this encounter Plan of Treatment Date Type Specialty Care Team Description 03/15/2020 Office Visit [facility] Paresh Vázquez, DIVISION SERGEANT [address] [place] [address] 15 [phone] Name Type Priority Associated Diagnoses Order S [...] Dates Phone Address Type / Group BCBS [facility] [id number] 2020-[place] [phone] [address] PPO/POS [place] - OUT OF 7 [id number] [place] [address] (Work) [id number] documented as of this encounter
--- OUTSIDE RECORDS SUMMARY | 2020-03-20 12:36 | XMS REPORT | Continuity of Care Document ---
:1995 Author Organization [facility] t Address [address] [place] [address] Care Team Providers Name Role Phone Rocio Valentin Attending Clinician Problems This patient has no known problems. Allergies, Adverse Reactions, Alerts This patient has no known allergies or adverse reactions. Medications This patient has no known medications. Procedures This patient has no known procedures. Encounters Start End Encounter Admission Attending Care Care Encounter Source Date/Time Date/Time Type Type Clinicians Facility Department ID 2020-03-06 2020-03-06 Office KYLIE Vázquez [id number] 12:53:32 14:01:34 Visit Paresh Chan PRINTING PRESS OPERATOR APPRENTICE [id number] [facility] [id number] MATERNAL [id number] & CHILD [address] [place] [address] Results This patient has no known results.
--- OUTSIDE RECORDS SUMMARY | 2020-03-20 12:36 | XMS REPORT | Summary of Care ---
:1995 Author Organization [facility] Address [address] [place] [address] Care Team Providers Name Role Phone Rocio Vázquez Primary Care Provider Reason for Visit Reason Comments Well Woman Exam Encounter Details Date Type Department Care Team Description 03/06/[address] [facility]- Paresh Vázquez for surveillance of other contraceptive (Primary Dx); AMOS Meehan Nexplanon in place; [address] [facility] woma n exam; [facility] Screening examination for STD (sexually transmitted disease); [place] [address] 15 Tobacco use disorder [id number] Allergies No Known Allergiesdocumented as of this [...] with No / Unsure 03/06/2020 1:15 PM TUNNEL FORM PLACING SUPERVISOR someone who was confirmed or suspected to have Coronavirus / COVID-19? documented as of this encounter Last Filed Vital Signs Vital Sign Reading Time Taken Comments Blood Pressure 108/61 03/06/2020 1:16 PM TUNNEL FORM PLACING SUPERVISOR Pulse 64 03/06/2020 1:16 PM TUNNEL FORM PLACING SUPERVISOR Temperature 36.9 C (98.5 F) 03/06/2020 1:16 PM TUNNEL FORM PLACING SUPERVISOR Respiratory Rate 16 03/06/2020 1:16 PM TUNNEL FORM PLACING SUPERVISOR Oxygen Saturation - - Inhaled Oxygen Concentration - - Weight 57.7 kg (127 lb 1.6 oz) 03/06/2020 1:16 PM TUNNEL FORM PLACING SUPERVISOR Height 165.1 cm (5' 5") 03/06/2020 1:16 PM TUNNEL FORM PLACING SUPERVISOR Body Mass Index 21.15 03/06/2020 1:16 PM TUNNEL FORM PLACING SUPERVISOR documented in this encounter Patient Instructions Patient [...] a nonlatex condom may offer some protection. [employer] last reviewed this educational content on 07/17/201819999005-0943 The [employer]. All rights reserved. This information is not intended as a substitute for professional medical care. Always follow your healthcare professional's instructions. Patient Education Clinical Breast Exam Many health organizations recommend a yearly clinical breast exam. This exam may be done by a plastic printer, family healthcare provider, nurse practitioner, nurse green coffee blender, or specially trained nurse. Yearly breast exams [...] Guidelines for having clinical breast exams The [place] [employer] of Obstetricians and Gynecologists recommends that [...] provider about what is best for you. [employer] last reviewed this educational content on 05/18/201919990108-3370 The [employer]. All rights reserved. This information is not [...] breast self-examination (BSE). These experts include the [place] [employer] and the [place] Congress of Obstetricians and Gynecologists. Some experts [...] benign. This means they are not cancer. [employer] last reviewed this educational content on 06/17/201919999679-1737 The [employer]. All rights reserved. This information is not [...] carcinoma, endocervical adenocarcinoma in situ, or adenocarcinoma.) [employer] last reviewed this educational content on 07/18/201919996364-6324 The [employer]. All rights reserved. This information is not [...] have them. Follow these guidelines from the [place] [employer] Society for cervical cancer screening: A [...] about the screening plan that's best foryou. [employer] last reviewed this educational content on 07/18/201919991538-8997 The [employer]. All rights reserved. This information is not [...] have other tests to evaluate the problem. [employer] last reviewed this educational content on 02/16/201919997813-7178 The [employer]. [address] [place] [address]176. All rights reserved. This information is not [...] allowing it to be passed to others. [employer] last reviewed this educational content on 07/17/201819997451-3651 The [employer]. [address] [place] [address]. All rights reserved. This information is not [...] once as part of routine health care. [employer] last reviewed this educational content on 11/16/201619999113-1127 The [employer], [employer]. All rights reserved. This information is not [...] of these vaccines is right for you. [facility] last reviewed this educational content on 01/16/201819991330-9331 The [employer]. All rights reserved. This information is not intended as a substitute for professional medical care. Always follow your healthcare professional's instructions. Patient Education Human Papillomavirus Quadrivalent Vaccine suspension for injection What is this medicine? HUMAN PAPILLOMAVIRUS VACCINE (HYOO [facility]uhn pap [facility] SEEN) is a vaccine. It [...] thigh. It is given by a health date night caregiver. You will be observed for 15 minutes [...] sheet may change frequently. Talk to your rivet hammer machine operator regarding the use of this medicine in children. While this drug may be prescribed for children as young as 9 years of age for selected conditions, precautions do apply. What side effects may I notice from receiving this medicine? Side effects that you should report to your doctor or health date night caregiver as soon as possible: allergic reactions like skin rash, itching or hives, swelling of the face, lips, or tongue breathing problems feeling faint or lightheaded, falls Side effects that usually do not require medical attention (report to your doctor or health date night caregiver if they continue or are bothersome): cough [...] for the next vaccine. Ask your health date night caregiver for advice if you are unable to [...] or symptoms. Tell your doctor or health date night caregiver if you have any reaction or unusual [...] is about the size of your fist. [employer] last reviewed this educational content on 08/17/201919991274-8241 The [employer]. All rights reserved. This information is not intended as a substitute for professional medical care. Always follow your healthcare professional's instructions. EL FORM PLACING SUPERVISOR documented in this encounter Progress Notes Paresh Vázquez, TRAFFIC LAW ATTORNEY - 03/06/2020 1:00 PM CST Chief complaint: [...] file Gets together: Not on file Attends methodist service: Not on file Active member of [...] Social History Narrative Patient lives with boyfriend. Oriental Orthodox preference: muslim. 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 Return to clinic in 1-2 weeks. [...] BCM: undecided 3) LMP: 02/01/2020 4) Last [place]: 03/05/2020 5) Last Pap: unknown Results: N/a HPV Results n/a 6) Tdap in last 10 years? Yes 7) HPV Vaccine: unknown 8) C/O: none 9) Patient denies history of physical, emotional, or sexual abuse. Patient states she currently feels safe at home. documented in this encounter Plan of Treatment Date Type Specialty Care Team Description 03/15/2020 Office Visit [facility] Paresh Vázquez, TRAFFIC LAW ATTORNEY [address] [place] [address] [phone] Name Type Priority Associated Diagnoses Order S [...] Dates Phone Address Type / Group BCBS [facility] [id number] 2020-[place] [phone] [address] PPO/POS [place] - OUT OF 7 [id number] [place] [address] (Work) [id number] documented as of this encounter
[2020-03-20 14:27] LABS: SARS-COV-2 RT PCR NEGATIVE (NEGATIVE)
--- NOTE | 2020-03-20 14:30 | ER ---
Nurse's Notes [facility] Name: Kenyatta Mejía Age: 24 yrs Sex: Female : 1995 Arrival Date: 03/20/2020 Time: 12:43 Bed Waiting Private MD: Diagnosis: Acute upper respiratory infection, unspecified Presentation: 03/20 13:14 Chief complaint: Patient states: runny nose and cough X 2 days. Coronavirus screen: iw Ebola Screen: Patient negative for fever greater than or equal to 101.5 degrees Fahrenheit, and additional compatible Ebola Virus Disease symptoms Patient denies exposure to infectious person. Patient denies travel to an Ebola-affected area in the 21 days before illness onset. No symptoms or risks identified at this time. Initial Sepsis Screen: Does the patient meet any 2 criteria? No. Patient's initial sepsis screen is negative. Does the patient have a suspected source of infection? No. Patient's initial sepsis screen is negative. Risk Assessment: Do you want to hurt yourself or someone else? Patient reports no desire to harm self or others. Onset of symptoms was March 18, 2020. 13:14 Method Of Arrival: Ambulatory iw 13:14 Acuity: COLIN 4 iw EAR NOSE THROAT PHYSICIAN: 13:15 LMP 03/20/2020 iw Historical: - Allergies: 13:15 No Known Allergies; iw - Home Meds: 13:15 None [Active]; iw - PMHx: 13:15 None; iw - PSHx: 13:15 None; iw - Social history:: Smoking status: . Screenin:19 Abuse screen: Denies threats or abuse. Denies injuries from another. Nutritional iw screening: No deficits noted. Tuberculosis screening: No symptoms or risk factors identified. Fall Risk None identified. Assessment: 13:19 General: Appears in no apparent distress. Behavior is calm, cooperative. Pain: Denies iw pain. Neuro: Level of Consciousness is awake, alert, obeys commands. Cardiovascular: Patient's skin is warm and dry. Respiratory: Airway is patent Respiratory effort is even, unlabored, Breath sounds are clear bilaterally. Derm: Skin is intact, is healthy with good turgor. Musculoskeletal: Range of motion: intact in all extremities. Vital Signs: 13:14 BP 113 / 67; Pulse 79; Resp 16; Temp 98.7; Pulse Ox 100% on R/A; Weight 56.7 kg; Height iw 5 ft. 5 in. (165.10 cm); 13:14 Body Mass Index 20.80 (56.70 kg, 165.10 cm) iw ED Course: 12:43 Patient arrived in ED. as 13:12 Di Jimenez F[facility]-C [facility]. kb 13:12 Job Arechiga MD is Attending Physician. kb 13:15 Triage completed. iw 13:15 Arm band placed on. iw 13:19 Naima Pennington, RN is Primary Nurse. iw Administered Medications: No medications were administered Outcome: 14:30 Discharge ordered by . kb 14:41 Patient left the ED. kb Signatures: Di Jimenez FNP-C FNP-Radha Walker as Naima Pennington, RN RN iw
--- NOTE | 2020-03-20 14:30 | EDPHYS ---
Physician Documentation [facility] Name: Kenyatta Mejía Age: 24 yrs Sex: Female : 1995 Arrival Date: 03/20/2020 Time: 12:43 Bed Waiting Private MD: ED Physician Job Arechiga HPI: 03/20 14:11 This 24 yrs old Female presents to ER via Ambulatory with complaints of kb Cough, Congestion. 14:11 The patient or guardian reports cough, that is intermittent, described as mild, with no kb sputum. Onset: The symptoms/episode began/occurred 3 day(s) ago. Severity of symptoms: At their worst the symptoms were mild, in the emergency department the symptoms are unchanged. Modifying factors: The symptoms are alleviated by nothing, the symptoms are aggravated by nothing. Associated signs and symptoms: Pertinent positives: rhinorrhea, sore throat, Pertinent negatives: chest pain, diarrhea, ear ache, fever, nausea, vomiting. The patient has not experienced similar symptoms in the past. The patient has not recently seen a physician. Pt reports cough and runny nose for a few days. Reports sore throat due to drainage and cough. Denies fever, chills. . RECOVERY OPERATOR HELPER: 13:15 LMP 03/20/2020 iw Historical: - Allergies: 13:15 No Known Allergies; iw - Home Meds: 13:15 None [Active]; iw - PMHx: 13:15 None; iw - PSHx: 13:15 None; iw - Social history:: Smoking status: . ROS: 14:11 Constitutional: Negative for fever, chills, and weight loss, Cardiovascular: Negative kb for chest pain, palpitations, and edema, Abdomen/GI: Negative for abdominal pain, nausea, vomiting, diarrhea, and constipation, Back: Negative for injury and pain, MS/Extremity: Negative for injury and deformity, Skin: Negative for injury, rash, and discoloration, Neuro: Negative for headache, weakness, numbness, tingling, and seizure. 14:11 ENT: Positive for rhinorrhea, sore throat. 14:11 Respiratory: Positive for cough, with no reported sputum. Exam: 14:12 Constitutional: This is a well developed, well nourished patient who is awake, alert, kb and in no acute distress. Head/Face: Normocephalic, atraumatic. ENT: Nares patent. No nasal discharge, no septal abnormalities noted. Tympanic membranes are normal and external auditory canals are clear. Oropharynx with no redness, swelling, or masses, exudates, or evidence of obstruction, uvula midline. Mucous membranes moist. Neck: Trachea midline, no thyromegaly or masses palpated, and no cervical lymphadenopathy. Supple, full range of motion without nuchal rigidity, or vertebral point tenderness. No Meningismus. Chest/axilla: Normal chest wall appearance and motion. Nontender with no deformity. No lesions are appreciated. Cardiovascular: Regular rate and rhythm with a normal S1 and S2. No gallops, murmurs, or rubs. Normal PMI, no JVD. No pulse deficits. Respiratory: Lungs have equal breath sounds bilaterally, clear to auscultation and percussion. No rales, rhonchi or wheezes noted. No increased work of breathing, no retractions or nasal flaring. Abdomen/GI: Soft, non-tender, with normal bowel sounds. No distension or tympany. No guarding or rebound. No evidence of tenderness throughout. Skin: Warm, dry with normal turgor. Normal color with no rashes, no lesions, and no evidence of cellulitis. MS/ Extremity: Pulses equal, no cyanosis. Neurovascular intact. Full, normal range of motion. Neuro: Awake and alert, GCS 15, oriented to person, place, time, and situation. Cranial nerves II-XII grossly intact. Motor strength 5/5 in all extremities. Sensory grossly intact. Cerebellar exam normal. Normal gait. Vital Signs: 13:14 BP 113 / 67; Pulse 79; Resp 16; Temp 98.7; Pulse Ox 100% on R/A; Weight 56.7 kg; Height iw 5 ft. 5 in. (165.10 cm); 13:14 Body Mass Index 20.80 (56.70 kg, 165.10 cm) iw MDM: 13:15 Patient medically screened. kb 14:12 Data reviewed: vital signs, nurses notes. Data interpreted: Pulse oximetry: on room air kb is 100 %. Interpretation: normal. 14:29 Counseling: I had a detailed discussion with the patient and/or guardian regarding: the kb historical points, exam findings, and any diagnostic results supporting the discharge/admit diagnosis, lab results, the need for outpatient follow up, a family practitioner, to return to the emergency department if symptoms worsen or persist or if there are any questions or concerns that arise at home. 03/20 14:27 Order name: COVID-19/FLU A+B; Complete Time: 14:29 EDMS Administered Medications: No medications were administered Disposition: 15:55 Co-signature as Attending Physician, Job Arechiga MD. ma2 Disposition: 03/20/20 14:30 Discharged to Home. Impression: Acute upper respiratory infection, unspecified. - Condition is Stable. - Discharge Instructions: Upper Respiratory Infection, Adult, [id number], Viral Respiratory Infection, [id number]. - Medication Reconciliation Form, Thank You Letter, Antibiotic Education, Prescription Opioid Use form. - Follow up: Emergency Department; When: As needed; Reason: Worsening of condition. Follow up: Private Physician; When: 2 - 3 days; Reason: Recheck today's complaints, Continuance of care, Re-evaluation by your physician. Signatures: Dispatcher [employer] [facility] Di Jimenez, AMOS-C DENTAL SALES REPRESENTATIVE-Naima Kevin, Job Blum RN, MD MD ma2 Corrections: (The following items were deleted from the chart) 13:41 13:26 CORONAVIRUS+MR.LAB.BRZ ordered. [facility] 13:42 13:26 Influenza Screen (A \T\ B)+BA.LAB.BRZ ordered. [facility] EDWI 14:41 14:30 03/20/2020 14:30 Discharged to Home. Impression: Acute upper respiratory kb infection, unspecified. Condition is Stable. Forms are Medication Reconciliation Form, Thank You Letter, Antibiotic Education, Prescription Opioid Use. Follow up: Emergency Department; When: As needed; Reason: Worsening of condition. Follow up: Private Physician; When: 2 - 3 days; Reason: Recheck today's complaints, Continuance of care, Re-evaluation by your physician. kb
[2020-03-20 14:48] VITALS: BP 113/67; TEMP 98.7; O2SAT 100
== END 2020-03-20 14:41 | disposition home or self-care (01) ==
LOC: ER 12:30
DX: J06.9 Acute upper respiratory infection, unspecified (principal); Z20.822 Contact with and (suspected) exposure to COVID-19
CPT/HCPCS: 0240U; 99281

== ENCOUNTER 2020-10-15 12:26 | Emergency (ER) | payer OTHER, SELFPAY ==
--- OUTSIDE RECORDS SUMMARY | 2020-10-15 12:28 | XMS REPORT | Continuity of Care Document ---
:1995 Author Organization [facility] t Address [address] [place] [address] Care Team Providers Name Role Phone Rocio [...] ID 2020-03-06 2020-03-06 Office KYLIE Vázquez [id number] 12:53:32 14:01:34 Visit Paresh Chan [facility] [id number] [facility] [id number] MATERNAL [phone] & CHILD [address] [place] [address] Results This patient has no known results.
--- NOTE | 2020-10-15 15:26 | EDPHYS ---
Physician Documentation [facility] Name: Kenyatta Mejía Age: 25 yrs Sex: Female : 1995 Arrival Date: 10/15/2020 Time: 12:28 Bed Waiting Private MD: ED Physician Raza Quinteros HPI: 10/15 14:42 This 25 yrs old Female presents to ER via Ambulatory with complaints of Fever kb - 17 wks preg, r/o covid. 14:42 The patient presents with sore throat. The patient describes throat pain as constant. kb Onset: The symptoms/episode began/occurred 2 day(s) ago. The patient has not experienced similar symptoms in the past. 14:43 Severity of symptoms: At their worst the symptoms were mild, in the emergency kb department the symptoms are unchanged. Modifying factors: The symptoms are alleviated by nothing, the symptoms are aggravated by nothing. Associated signs and symptoms: Pertinent positives: Sore throat Pertinent negatives fever. The patient has not recently seen a physician. Pt reports sore throat for 2 days. "I just came because I don't want it to be covid.". Historical: - Allergies: 12:59 No Known Allergies; hb - Immunization history:: Client reports having NOT received the Covid vaccine. - Social history:: Smoking status: Patient denies any tobacco usage or history of. ROS: 14:42 Constitutional: Negative for fever, chills, and weight loss. kb 14:42 ENT: Positive for sore throat. 14:42 All other systems are negative. Exam: 14:42 Constitutional: This is a well developed, well nourished patient who is awake, alert, kb and in no acute distress. Head/Face: Normocephalic, atraumatic. ENT: Moist Mucous membranes Cardiovascular: Regular rate and rhythm with a normal S1 and S2. No gallops, murmurs, or rubs. No pulse deficits. Respiratory: Respirations even and unlabored. No increased work of breathing, no retractions or nasal flaring. Skin: Warm, dry with normal turgor. Normal color. MS/ Extremity: Pulses equal, no cyanosis. Neurovascular intact. Full, normal range of motion. Neuro: Awake and alert, GCS 15, oriented to person, place, time, and situation. Moves all extremities. Normal gait. Psych: Awake, alert, with orientation to person, place and time. Behavior, mood, and affect are within normal limits. Vital Signs: 12:58 BP 125 / 69; Pulse 89; Resp 16; Temp 98.2; Pulse Ox 96% on R/A; Pain 3/10; hb MDM: 13:00 Patient medically screened. kb 14:42 Data reviewed: vital signs, nurses notes. Data interpreted: Pulse oximetry: on room air kb is 96 %. Interpretation: normal. Counseling: I had a detailed discussion with the patient and/or guardian regarding: the historical points, exam findings, and any diagnostic results supporting the discharge/admit diagnosis, lab results, the need for outpatient follow up, an OB/Gyne specialist, to return to the emergency department if symptoms worsen or persist or if there are any questions or concerns that arise at home. 10/15 13:00 Order name: Strep; Complete Time: 14:07 hb 10/15 14:08 Order name: Throat Culture EDMS 10/15 15:12 Order name: SARS-COV-2 RT PCR; Complete Time: 15:23 EDMS Administered Medications: No medications were administered Disposition: 10/16 07:46 Co-signature as Attending Physician, Raza Quinteros MD I agree with the assessment and juan plan of care. Disposition Summary: 10/15/20 15:25 Discharge Ordered Location: Home kb Condition: Stable kb Diagnosis - Pain in throat kb Followup: kb - With: Emergency Department - When: As needed - Reason: Worsening of condition Followup: kb - With: Private Physician - When: 2 - 3 days - Reason: Recheck today's complaints, Continuance of care, Re-evaluation by your physician Discharge Instructions: - Discharge Summary Sheet kb - Sore Throat, [id number] kb Forms: - Medication Reconciliation Form kb - Thank You Letter kb - Antibiotic Education kb - Prescription Opioid Use kb Signatures: Dispatcher [employer] EDDi Scales, TECHNICAL MANAGER-C TECHNICAL MANAGER-Raza Stewart MD MD cha Baxter, Heather, RN RN Corrections: (The following items were deleted from the chart) 10/15 13:01 13:00 Group A Streptococcus Rapid Sc+BA.LAB.BRZ ordered. EDMS EDMS 14:12 12:38 CORONAVIRUS+MR.LAB.BRZ ordered. EDMS EDMS 14:43 14:42 Onset: The symptoms/episode began/occurred 4 day(s) ago, kb kb
--- NOTE | 2020-10-15 15:26 | ER ---
Nurse's Notes [facility] Name: Kenyatta Mejía Age: 25 yrs Sex: Female : 1995 Arrival Date: 10/15/2020 Time: 12:28 Bed Waiting Private MD: Diagnosis: Pain in throat Presentation: 10/15 12:58 Chief complaint: Sore throat x 2 days. Coronavirus screen: At this time, the client hb does not indicate any symptoms associated with coronavirus-19. Ebola Screen: No symptoms or risks identified at this time. Initial Sepsis Screen: Does the patient meet any 2 criteria? No. Patient's initial sepsis screen is negative. Does the patient have a suspected source of infection? No. Patient's initial sepsis screen is negative. Risk Assessment: Do you want to hurt yourself or someone else? Patient reports no desire to harm self or others. Onset of symptoms was October 13, 2020. 12:58 Method Of Arrival: Ambulatory hb 12:58 Acuity: COLIN 4 hb Historical: - Allergies: 12:59 No Known Allergies; hb - Immunization history:: Client reports having NOT received the Covid vaccine. - Social history:: Smoking status: Patient denies any tobacco usage or history of. Vital Signs: 12:58 BP 125 / 69; Pulse 89; Resp 16; Temp 98.2; Pulse Ox 96% on R/A; Pain 3/10; hb ED Course: 12:28 Patient arrived in ED. as 12:48 Di Jimenez FNP-C is [facility]. kb 12:48 Raza Quinteros MD is Attending Physician. kb 12:59 Triage completed. hb 12:59 Arm band placed on. hb Administered Medications: No medications were administered Outcome: 15:25 Discharge ordered by . kb 15:32 Patient left the ED. kb Signatures: Di Jimenez FNP-C FNP-Ckb Martinez, Amelia as Baxter, Heather RN RN hb Corrections: (The following items were deleted from the chart) 12:59 12:58 BP 125 / 69; Pulse 55bpm; Resp 16bpm; Pulse Ox 96% RA; Temp 98.2F; Pain 3/10; hb hb
[2020-10-15 15:43] VITALS: BP 125/69; TEMP 98.2; O2SAT 96
== END 2020-10-15 15:32 | disposition home or self-care (01) ==
LOC: ER 12:26
DX: O26.892 Other specified pregnancy related conditions, second trimester (principal); Z3A.17 17 weeks gestation of pregnancy; Z20.822 Contact with and (suspected) exposure to COVID-19
CPT/HCPCS: 87070; 87081; 99281; U0003

== ENCOUNTER 2024-04-18 18:05 | Emergency (ER) | payer OTHER, SELFPAY ==
--- OUTSIDE RECORDS SUMMARY | 2024-04-18 18:11 | XMS REPORT | Continuity of Care Document ---
Author Name Unknown Address [address] [facility] [place] [address] [facility] thconnect Address [address] [facility] [address] [place] [address] Care Team Providers Care Telecommunication Equipment Repairer Name Role Phone PARESH CHAVARRIA Primary Care Physician MURPHY Corbett Attending Clinician Unavailable MURPHY BENEDICT Attending Clinician Unavailable Nurse, [facility] Attending Clinician Un available Murphy Benedict MD Attending Clinician [phone] Nurse, [facility] Attending Clinician Un available Renetta Aguilar MD Attending Clinician + [phone] RENETTA AGUILAR Attending Clinician Fernando woods Doctor Unassigned, [place] Attending Clinician Deandre Muller PA-C Attending Clinician [phone] Paresh Valentin Attending Clinician UnaKeila Smith MA Attending Clinician UnavailDEANDRE Kasper Attending Clinician Unavailable Ultrasound, [facility] Attending Clinician Unavaila sarah Jacob MD, Brayan Attending Clinician + BRAYAN FONG Attending Clinician Unav ailable 2, [facility] Attending Clinician Unavailable Soraya Estrella MD Attending Clinician [phone] SORAYA ESTRELLA Attending Clinician Unavailable Sunny RN, Henny Del Rosario Attending Clinician Unavailable Cecy MCGEE, Guillermina Mcghee Attending Clinician [phone] GUILLERMINA SAM Attending Clinician Unavailable Janett Silver RN Attending Clinician Unavail able Joshua Milner MD Attending Clinicia n Only, [facility] Attending Clinician Unavailable Pob, [facility] Main Attending Clinician Unavailrobby Carcamo MD, Chai Perez Attending Clinician [phone] AKINBOB CHAMBERS Attending Clinician Unavail able Shashank Epps MD Attending Clinician [phone] Gorge MINES INSPECTOR, Shelia Stafford Attending Clinician [phone] [facility], [facility] Attending Clinician Unavailable Akinmaria e WHCNP, Bob Sanford Attending Clinician + Navneet INTERPRETATIVE DANCER, Thao Lozano Attending Clinician [phone] Wiley Enrique MD Attending Clinician [phone] DEIRDRE TOMLINSON Attending Clinician Unavail able [facility] Attending Clinician Unavailab PARESH King Attending Clinician Unavailab Henny Washington CNM Attending Clinician [phone] [facility], [facility] Attending Clinician MURPHY Castano Admitting Clinician Unavailable RENETTA AGUILAR Admitting Clinician Fernando Benedict MD, Murphy Narvaez Admitting Clinician [phone] Payers Payer Name Policy Type Policy Number Effective Date Expirati on Date Source [facility] OUT OF STATE [id number] 2020 00:00:00 [employer] MEDICAID [id number] 2020 00:00:00 MEDICAID [facility] [id number] 2020 00:00:00 [facility] [id number] 2018 00:00:00 Problems Condition Name Condition Details Condition Category Status Onset Date Resolution Date Last Treatment Date Treating Clinician Comments Source Anemia of mother in , antepartum Anemia of mother in , antepartum Disease Active 2021-02 1-08 00:00: 00 [facility] Mild intermitte nt asthma without complicati on Mild intermitte nt asthma without complicati on Disease Active 7 00:00: 00 [facility] Rubella non-immune status, antepartum Rubella non-immune status, antepartum Disease Active 07-11 00:00: 00 Overview: Formattin g of this note might be different from the original. Address pp [facility] Uterine contractio ns during Uterine contractio ns during Disease Resolve d 2021-02 2-04 00:00: 00 2023-01-26 00:00:00 2023-01-26 16:18:03 [facility] Benign gestationa l thrombocyt openia in third trimester Benign gestationa l thrombocyt openia in third trimester Disease Resolve d 2021-02 2-04 00:00: 00 2023-01-26 00:00:00 2023-01-26 16:18:02 [facility] Anemia of mother in , antepartum Anemia of mother in , antepartum Disease Resolve d 2021-02 108 00:00: 00 2023-01-26 00:00:00 2023-01-26 16:18:01 [facility] Nausea and vomiting during prior to 22 weeks gestation Nausea and vomiting during prior to 22 weeks gestation Disease Resolve d 5-11 00:00: 00 2023-01-26 00:00:00 2023-01-26 16:17:55 [facility] High risk , antepartum High risk , antepartum Disease Resolve d 2021-0 5-11 00:00: 00 2023-01-26 00:00:00 2023-01-26 16:17:57 [facility] Short interval between pregnancie s complicati ng , antepartum Short interval between pregnancie s complicati ng , antepartum Disease Resolve d 2021-0 5-11 00:00: 00 2023-01-26 00:00:00 2023-01-26 16:17:58 [facility] labor in third trimester with delivery labor in third trimester with delivery Disease Resolve d 2021-1 2-04 00:00: 00 2022-02-13 00:00:00 2022-02-13 10:12:50 [facility] 39 weeks gestation of 39 weeks gestation of Disease Resolve d 2021-0 1-26 00:00: 00 2021-04-17 00:00:00 2021-04-17 13:27:47 [facility] Encounter for planned induction of labor Encounter for planned induction of labor Disease Resolve d 2021-0 1-26 00:00: 00 2021-04-17 00:00:00 2021-04-17 12:59:17 [facility] COVID-19 virus infection COVID-19 virus infection Disease Resolve d 2021-0 1-26 00:00: 00 2021-04-17 00:00:00 2021-04-17 12:59:17 [facility] Anemia, antepartum , third trimester Anemia, antepartum , third trimester Disease Resolve d 2021-0 1-26 00:00: 00 2021-04-17 00:00:00 2021-04-17 12:59:17 [facility] Liveborn infant, of [place] , born in hospital by vaginal delivery Liveborn , of [place] , born in hospital by vaginal delivery Disease Resolve d 2021-0 1-26 00:00: 00 2021-04-17 00:00:00 2021-04-17 12:59:17 [facility] History of miscarriag e, currently History of miscarriag e, currently Disease Resolve d 2020-0 6-10 00:00: 00 2021-04-17 00:00:00 2021-04-17 13:27:52 [facility] Supervisio n of high-risk Supervisio n of high-risk Disease Resolve d 2020-0 5-25 00:00: 00 2021-04-17 00:00:00 2021-04-17 13:27:55 [facility] Tobacco use in Tobacco use in Disease Resolve d 525 00:00: 00 2021-04-17 00:00:00 2021-04-17 13:27:56 [facility] 6 weeks gestation of 6 weeks gestation of Disease Resolve d 6-10 00:00: 00 2020-07-26 00:00:00 2020-07-26 15:29:00 [facility] Screening examinatio n for STD (sexually transmitte d disease) Screening examinatio n for STD (sexually transmitte d disease) Disease Resolve d 7 00:00: 00 2020-07-10 00:00:00 2020-07-10 14:29:09 [facility] Nexplanon in place Nexplanon in place Disease Resolve d 7 00:00: 00 2020-07-10 00:00:00 2020-07-10 14:29:10 [facility] Allergies, Adverse Reactions, Alerts Allergy Name Allergy Type Status Severity Reaction(s) Onset Date Inactive Date Treating Clinician Comments Source NO KNOWN ALLERGIE S Drug Class Active [facility] Social History Social Habit Start Date Stop Date Quantity Comments Source ASSERTION 2021-05-24 00:00:00 [facility] Tobacco use and exposure 2023-07-20 00:00:00 2023-07-20 00:00:00 Smokeless tobacco non-user [facility] Alcoholic beverage intake 2023-07-20 00:00:00 2023-07-20 00:00:00 .14 /d [facility] Alcohol intake 2023-04-27 00:00:00 2023-04-27 00:00:00 .14 /d [facility] History of Social function 2023-01-26 00:00:00 2023-01-26 00:00:00 [facility] Exposure to SARS-CoV-2 (event) 2022-02-03 00:00:00 2022-02-13 10:10:00 Not sure [facility] Tobacco Comment 2021-10-09 00:00:00 2021-10-09 00:00:00 started at age 19 [facility] History of tobacco use 2018-06-20 00:00:00 2021-06-20 00:00:00 Cigarette Smoker [facility] History SDOH Alcohol Frequency 2020-03-06 00:00:00 2020-03-06 00:00:00 3 [facility] History SDOH Alcohol Std Drinks 2020-03-06 00:00:00 2020-03-06 00:00:00 99 [facility] History SDOH Alcohol Binge 2020-03-06 00:00:00 2020-03-06 00:00:00 99 [facility] Alcohol Comment 2018-09-13 00:00:00 2018-09-13 00:00:00 on occassion socially [facility] Sex assigned at 1995 00:00:00 1995 00:00:00 [facility] Smoking Status Start Date Stop Date Source Ex-smoker 2023-07-20 00:00:00 2023-07-20 [facility]:00[facility] Smokes tobacco daily 2018-09-13 00:00:00 [facility] Medications Ordered Medication Name Filled Medication Name Start Date Stop Date Current Medication? Ordering Clinician Indication Dosage Frequency Signature (SIG) Comments Components Source medroxyPROG ESTERone (DEPO-PROVE RA) syringe 150 mg 10-11 20:15: 00 10-11 19:29 :00 No [id number] 150mg 150 mg, Intramuscu lar, ONCE, 1 dose, On Thu10/12/23 at 1515, Routine [facility] medroxyPROG ESTERone (DEPO-PROVE RA) syringe 150 mg 07-19 22:15: 00 07-19 21:26 :00 No [id number] 150mg [facility] medroxyPROG ESTERone (DEPO-PROVE RA) syringe 150 mg 04-26 20:45: 00 04-26 19:57 :00 No [id number] 150mg [facility] metroNIDAZO LE (FLAGYL) 500 mg tablet 2022-02 00:00: 00 01-28 05:59 :00 No [id number] 2000mg Take 4 tablets by mouth once now for 1 dose. [facility] medroxyPROG ESTERone (DEPO-PROVE RA) syringe 150 mg 2022-02 22:45: 00 01-26 21:55 :00 No [id number] 150mg [facility] norethindro ne 0.35 mg tablet 2021-02 00:00: 00 01-26 00:00 :00 No [id number] 1{tbl} Take 1 tablet by mouth in the morning. [facility] PNV no.95/selena us fum/folic ac ( ORAL) 2021-02 07:46: 40 01-20 00:00 :00 No Take by mouth. [facility] vitamin w/FA tablet 2021-02 00:00: 00 Yes [id number] 1{tbl} Take 1 tablet by mouth in the morning. [facility] vitamin w/FA tablet 2021-02 00:00: 00 01-26 00:00 :00 No [id number] 1{tbl} Take 1 tablet by mouth in the morning. [facility] docusate 100 mg capsule 2021-02 00:00: 00 01-26 00:00 :00 No [id number] 200mg Take 2 capsules by mouth once daily as needed for Constipati on. [facility] ferrous sulfate 325 mg (65 mg iron) tablet 2021-02 00:00: 00 01-26 00:00 :00 No [id number] 325mg Take 1 tablet by mouth in the morning and 1 tablet in the evening. [facility] ibuprofen 600 mg tablet 2021-02 00:00: 00 01-26 00:00 :00 No [id number] 600mg Take 1 tablet by mouth every 6 (six) hours as needed (Pain). Take with food or milk. [facility] rho(D) immune globulin (RHOGAM) syringe 300 mcg 2021-02 19:11: 16 Yes 300ug 300 mcg, Intramuscu lar, ONCE, For 1 dose, Conditiona l, Routine [facility] HYDROcodone -acetaminop hen (NORCO 5) 5-325 mg tablet 1 tablet 2021-02 19:06: 47 Yes 1{tbl} 1 tablet, Oral, Q6HPRN, Starting on 01/19/22 at 1306, Until Discontinu ed, Routine, Pain (scale 7-10) [facility] ibuprofen (IBU) tablet 600 mg 2021-02 19:06: 47 Yes 600mg 600 mg, Oral, Q6HPRN, Starting on 01/19/22 at 1306, Until Discontinu ed, Routine, Pain (scale 4-6) [facility] acetaminoph en (TYLENOL) tablet 650 mg 2021-02 19:06: 47 Yes 650mg 650 mg, Oral, Q6HPRN, Starting on 01/19/22 at 1306, Until Discontinu ed, Routine, Pain (scale 1-3) [facility] diphenhydrA MINE (BENADRYL) tablet 25 mg 2021-02 19:06: 47 Yes 25mg 25 mg, Oral, Q6HPRN, Starting on 01/19/22 at 1306, Until Discontinu ed, Routine, Sleep, Itching [facility] ondansetron (ZOFRAN (PF)) injection 4 mg 2021-02 19:06: 47 Yes 4mg 4 mg, Slow IV Push, Q8HPRN, Starting on 01/19/22 at 1306, Until Discontinu ed, Routine, Nausea and Vomiting (N/V) [facility] simethicone (GAS RELIEF (SIMETHICON E)) chewable tablet 160 mg 2021-02 19:06: 47 Yes 160mg 160 mg, Oral, PC+HSPRN, Starting on 01/19/22 at 1306, Until Discontinu ed, Routine, Gas [facility] docusate (COLACE) capsule 200 mg 2021-02 19:06: 47 Yes 200mg 200 mg, Oral, QDAILYPRN, Starting on 01/19/22 at 1306, Until Discontinu ed, Routine, Constipati on [facility] magnesium hydroxide (MILK OF MAGNESIA) 400 mg/5 mL suspension 30 mL 2021-02 19:06: 47 Yes 30mL 30 mL, Oral, QDAILYPRN, Starting on 01/19/22 at 1306, Until Discontinu ed, Routine, Constipati on [facility] benzocaine- menthol (DERMOPLAST ) 20-0.5 % topical spray 2021-02 19:06: 47 Yes Topical, PRN, Starting on 01/19/22 at 1306, Until Discontinu ed, Routine, Perineum discomfort [facility] oxytocin (PITOCIN) injection 20 Units 2021-02 18:45: 00 01-19 18:41 :00 No 20U 20 Units, Intramuscu lar, ONCE, 1 dose, On 01/19/22 at 1245, Routine [facility] lactated ringers IV infusion 500 mL 2021-02 17:55: 57 01-19 19:11 :15 No 500mL at 999 mL/hr, 500 mL, IV Infusion, PRN - SEE INSTRUCTIO NS, Starting on Thu01/19/22 at 1155, Until 01/19/22 at 1311, Routine [facility] ferrous sulfate (IRON, FERROUS SULFATE,) 325 mg (65 mg iron) tablet 2021-02 00:00: 00 01-20 00:00 :00 No [id number] 325mg Take 1 tablet by mouth in the morning and 1 tablet in the evening. [facility] PNV no.95/[place]ena us fum/folic ac ( ORAL) 06-26 15:04: 44 Yes Take by mouth. [facility] pyridoxine, VITAMIN B-6, (VITAMIN B-6) 25 mg tablet 06-26 00:00: 01-20 00:00 :00 No [id number] 25mg Take 1 tablet by mouth every 6 (six) hours as needed for Nausea and Vomiting (N/V). [facility] doxylamine (UNISOM, DOXYLAMINE, ) 25 mg tablet 11 00:00: 00 01-20 00:00 :00 No [id number] 25mg Take 1 tablet by mouth at bedtime as needed for Nausea and Vomiting (N/V). [facility] metoclopram alejandra HCl 10 mg tablet 06-26 00:00: 00 01-20 00:00 :00 No [id number] 10mg Take 1 tablet by mouth every 6 (six) hours as needed for Nausea and Vomiting (N/V). [facility] ferrous sulfate 325 mg (65 mg iron) tablet 03-14 00:00: 00 01-20 00:00 :00 No [id number] 325mg Take 1 tablet by mouth 2 (two) times daily. [facility] metroNIDAZO LE 500 mg tablet 8-06 00:00: 00 12-12 00:00 :00 No [id number] 500mg Take 1 tablet by mouth every 12 (twelve) hours. [facility] albuterol 90 mcg/actuati on inhaler 707 00:00: 00 Yes [id number] 2{puff} Inhale 2 Puffs every 6 (six) hours as needed for Wheezing, Shortness of Breath, Bronchospa sm or Chest tightness. [facility] metoclopram alejandra HCl 10 mg tablet 6-14 00:00: 00 12-12 00:00 :00 No 10mg Take 1 tablet by mouth every 6 (six) hours as needed for Nausea and Vomiting (N/V) (continue taking vitamin B6). [facility] multivitami n ( VITAMIN) tablet 5-25 00:00: 00 03-14 00:00 :00 No [id number] 1{tbl} Take 1 tablet by mouth daily. [facility] norgestimat e-ethinyl estradioL 0.25-35 mg-mcg per tablet 3-22 00:00: 00 07-19 00:00 :00 No [id number] 1{tbl} Take 1 tablet by mouth daily. [facility] Immunizations Ordered Immunization Name Filled Immunization Name Date Status Comments Source Influenza Virus Vaccine Quad IM, Preserv and ABX Free 6 MO-64 YRS 2021-12-24 00:00:00 Completed [facility] TDAP 2021-12-24 00:00:00 Completed [facility] Influenza Virus Vaccine Quad IM, Preserv and ABX Free 6 MO-64 YRS 2021-12-24 00:00:00 Completed [facility] TDAP 2021-12-24 00:00:00 Completed [facility] Influenza Virus Vaccine Quad IM, Preserv and ABX Free 6 MO-64 YRS 2021-12-24 00:00:00 Completed [facility] TDAP 2021-12-24 00:00:00 Completed [facility] Influenza Virus Vaccine Quad IM, Preserv and ABX Free 6 MO-64 2021-12-24 00:00:00 Completed [facility] TDAP 2021-12-24 00:00:00 Completed [facility] Influenza Virus Vaccine Quad IM, Preserv and ABX Free MO-64 2021-12-24 00:00:00 Completed [facility] TDAP 2021-12-24 00:00:00 Completed [facility] Influenza Virus Vaccine Quad IM, Preserv and ABX Free 6 MO-64 YRS 2021-12-24 00:00:00 Completed [facility] TDAP 2021-12-24 00:00:00 Completed [facility] Influenza Virus Vaccine Quad IM, Preserv and ABX Free 6 MO-64 2021-12-24 00:00:00 Completed [facility] TDAP 2021-12-24 00:00:00 Completed [facility] Influenza Virus Vaccine Quad IM, Preserv and ABX Free 6 MO-64 YRS 2021-12-24 00:00:00 Completed [facility] TDAP 2021-12-24 00:00:00 Completed [facility] MMR 2021-03-14 00:00:00 Completed [facility] MMR 2021-03-14 00:00:00 Completed [facility] MMR 2021-03-14 00:00:00 Completed [facility] MMR 2021-03-14 00:00:00 Completed [facility] MMR 2021-03-14 00:00:00 Completed [facility] MMR 2021-03-14 00:00:00 Completed [facility] MMR 2021-03-14 00:00:00 Completed [facility] MMR 2021-03-14 00:00:00 Completed [facility] MMR 2021-03-14 00:00:00 Completed [facility] MMR 2021-03-14 00:00:00 Completed [facility] MMR 2021-03-14 00:00:00 Completed [facility] MMR 2021-03-14 00:00:00 Completed [facility] MMR 2021-03-14 00:00:00 Completed [facility] MMR 2021-03-14 00:00:00 Completed [facility] MMR 2021-03-14 00:00:00 Completed [facility] MMR 2021-03-14 00:00:00 Completed [facility] Influenza Virus Vaccine Quad IM, Preserv and ABX Free 6 MO-64 YRS 2021-01-09 00:00:00 Completed [facility] TDAP 2021-01-09 00:00:00 Completed [facility] Influenza Virus Vaccine Quad IM, Preserv and ABX Free 6 MO-64 YRS 2021-01-09 00:00:00 Completed [facility] TDAP 2021-01-09 00:00:00 Completed [facility] Influenza Virus Vaccine Quad IM, Preserv and ABX Free 6 MO-64 YRS 2021-01-09 00:00:00 Completed [facility] TDAP 2021-01-09 00:00:00 Completed [facility] Influenza Virus Vaccine Quad IM, Preserv and ABX Free 6 MO-64 YRS 2021-01-09 00:00:00 Completed [facility] TDAP 2021-01-09 00:00:00 Completed [facility] Influenza Virus Vaccine Quad IM, Preserv and ABX Free 6 MO-64 YRS 2021-01-09 00:00:00 Completed [facility] TDAP 2021-01-09 00:00:00 Completed [facility] Influenza Virus Vaccine Quad IM, Preserv and ABX Free 6 MO-64 YRS 2021-01-09 00:00:00 Completed [facility] TDAP 2021-01-09 00:00:00 Completed [facility] Influenza Virus Vaccine Quad IM, Preserv and ABX Free 6 MO-64 YRS 2021-01-09 00:00:00 Completed [facility] TDAP 2021-01-09 00:00:00 Completed [facility] Influenza Virus Vaccine Quad IM, Preserv and ABX Free 6 MO-64 YRS 2021-01-09 00:00:00 Completed [facility] TDAP 2021-01-09 00:00:00 Completed [facility] Influenza Virus Vaccine Quad IM, Preserv and ABX Free 6 MO-64 YRS 2021-01-09 00:00:00 Completed [facility] TDAP 2021-01-09 00:00:00 Completed [facility] Influenza Virus Vaccine Quad IM, Preserv and ABX Free 6 MO-64 YRS 2021-01-09 00:00:00 Completed [facility] TDAP 2021-01-09 00:00:00 Completed [facility] Influenza Virus Vaccine Quad IM, Preserv and ABX Free 6 MO-64 YRS 2021-01-09 00:00:00 Completed [facility] TDAP 2021-01-09 00:00:00 Completed [facility] Influenza Virus Vaccine Quad IM, Preserv and ABX Free 6 MO-64 YRS 2021-01-09 00:00:00 Completed [facility] TDAP 2021-01-09 00:00:00 Completed [facility] Influenza Virus Vaccine Quad IM, Preserv and ABX Free 6 MO-64 YRS 2021-01-09 00:00:00 Completed [facility] TDAP 2021-01-09 00:00:00 Completed [facility] Influenza Virus Vaccine Quad IM, Preserv and ABX Free 6 MO-64 YRS 2021-01-09 00:00:00 Completed [facility] TDAP 2021-01-09 00:00:00 Completed [facility] Influenza Virus Vaccine Quad IM, Preserv and ABX Free 6 MO-64 YRS 2021-01-09 00:00:00 Completed [facility] TDAP 2021-01-09 00:00:00 Completed [facility] Influenza Virus Vaccine Quad IM, Preserv and ABX Free 6 MO-64 YRS 2021-01-09 00:00:00 Completed [facility] TDAP 2021-01-09 00:00:00 Completed [facility] Influenza Virus Vaccine Quad IM, Preserv and ABX Free 6 MO-64 YRS 2021-01-09 00:00:00 Completed [facility] TDAP 2021-01-09 00:00:00 Completed [facility] DTaP, Unspecified Formulation 2003-10-27 00:00:00 Completed [facility] DTaP, Unspecified Formulation 2003-10-27 00:00:00 Completed [facility] DTaP, Unspecified Formulation 2003-01-04 00:00:00 Completed [facility] Hep B, Adol or Pedi Dosage 2003-01-04 00:00:00 Completed [facility] IPV 2003-01-04 00:00:00 Completed [facility] DTaP, Unspecified Formulation 2003-01-04 00:00:00 Completed [facility] Hep B, Adol or Pedi Dosage 2003-01-04 00:00:00 Completed [facility] IPV 2003-01-04 00:00:00 Completed [facility] DTaP, Unspecified Formulation 2002-07-26 00:00:00 Completed [facility] Hep B, Adol or Pedi Dosage 2002-07-26 00:00:00 Completed [facility] MMR 2002-07-26 00:00:00 Completed [facility] IPV 2002-07-26 00:00:00 Completed [facility] DTaP, Unspecified Formulation 2002-07-26 00:00:00 Completed [facility] Hep B, Adol or Pedi Dosage 2002-07-26 00:00:00 Completed [facility] MMR 2002-07-26 00:00:00 Completed [facility] IPV 2002-07-26 00:00:00 Completed [facility] DTaP, Unspecified Formulation 2001-11-01 00:00:00 Completed [facility] Hep B, Adol or Pedi Dosage 2001-11-01 00:00:00 Completed [facility] HIB 4 Dose Schedule 2001-11-01 00:00:00 Completed [facility] MMR 2001-11-01 00:00:00 Completed [facility] IPV 2001-11-01 00:00:00 Completed [facility] Varicella (varivax)(chicken pox) 2001-11-01 00:00:00 Completed [facility] DTaP, Unspecified Formulation 2001-11-01 00:00:00 Completed [facility] Hep B, Adol or Pedi Dosage 2001-11-01 00:00:00 Completed [facility] HIB 4 Dose Schedule 2001-11-01 00:00:00 Completed [facility] MMR 2001-11-01 00:00:00 Completed [facility] IPV 2001-11-01 00:00:00 Completed [facility] Varicella (varivax)(chicken pox) 2001-11-01 00:00:00 Completed [facility] MMR 1998-11-07 00:00:00 Completed [facility] Polio (IPV/OPV) 1998-11-07 00:00:00 Completed [facility] Varicella (varivax)(chicken pox) 1998-11-07 00:00:00 Completed [facility] MMR 1998-11-07 00:00:00 Completed [facility] Polio (IPV/OPV) 1998-11-07 00:00:00 Completed [facility] Varicella (varivax)(chicken pox) 1998-11-07 00:00:00 Completed [facility] DTAP 1998-07-26 00:00:00 Completed [facility] HIB 4 Dose Schedule 1998-07-26 00:00:00 Completed [facility] DTAP 1998-07-26 00:00:00 Completed [facility] HIB 4 Dose Schedule 1998-07-26 00:00:00 Completed [facility] DTAP 1998-05-14 00:00:00 Completed [facility] Hep B, Adol or Pedi Dosage 1998-05-14 00:00:00 Completed [facility] HIB 4 Dose Schedule 1998-05-14 00:00:00 Completed [facility] Polio (IPV/OPV) 1998-05-14 00:00:00 Completed [facility] DTAP 1998-05-14 00:00:00 Completed [facility] Hep B, Adol or Pedi Dosage 1998-05-14 00:00:00 Completed [facility] HIB 4 Dose Schedule 1998-05-14 00:00:00 Completed [facility] Polio (IPV/OPV) 1998-05-14 00:00:00 Completed [facility] DTAP 1997 00:00:00 Completed [facility] Hep B, Adol or Pedi Dosage 1997 00:00:00 Completed [facility] HIB 4 Dose Schedule 1997 00:00:00 Completed [facility] Polio (IPV/OPV) 1997 00:00:00 Completed [facility] DTAP 1997 00:00:00 Completed [facility] Hep B, Adol or Pedi Dosage 1997 00:00:00 Completed [facility] HIB 4 Dose Schedule 1997 00:00:00 Completed [facility] Polio (IPV/OPV) 1997 00:00:00 Completed [facility] Hep B, Adol or Pedi Dosage 1997 00:00:00 Completed [facility] Hep B, Adol or Pedi Dosage 1997 00:00:00 Completed [facility] Influenza Virus Vaccine Quad IM, Preserv and ABX Free 6 MO-64 YRS (FLUCELVAX) Unknown Completed [facility] TDAP Unknown Completed [facility] MMR Unknown Completed [facility] DTaP, Unspecified Formulation Unknown Completed [facility] Hep B, Adol or Pedi Dosage Unknown Completed [facility] HIB 4 Dose Schedule Unknown Completed [facility] IPV Unknown Completed [facility] Varicella (varivax)(chicken pox) Unknown Completed [facility] Influenza Virus Vaccine Quad IM, Preserv and ABX Free 6 MO-64 YRS (FLUCELVAX) Unknown Completed [facility] TDAP Unknown Completed [facility] DTaP, Unspecified Formulation Unknown Completed [facility] Hep B, Adol or Pedi Dosage Unknown Completed [facility] HIB 4 Dose Schedule Unknown Completed [facility] MMR Unknown Completed [facility] IPV Unknown Completed [facility] Varicella (varivax)(chicken pox) Unknown Completed [facility] DTaP, Unspecified Formulation Unknown Completed [facility] Hep B, Adol or Pedi Dosage Unknown Completed [facility] HIB 4 Dose Schedule Unknown Completed [facility] MMR Unknown Completed [facility] IPV Unknown Completed [facility] Varicella (varivax)(chicken pox) Unknown Completed [facility] DTaP, Unspecified Formulation Unknown Completed [facility] Hep B, Adol or Pedi Dosage Unknown Completed [facility] HIB 4 Dose Schedule Unknown Completed [facility] MMR Unknown Completed [facility] IPV Unknown Completed [facility] Varicella (varivax)(chicken pox) Unknown Completed [facility] DTaP, Unspecified Formulation Unknown Completed [facility] Hep B, Adol or Pedi Dosage Unknown Completed [facility] HIB 4 Dose Schedule Unknown Completed [facility] MMR Unknown Completed [facility] IPV Unknown Completed [facility] Varicella (varivax)(chicken pox) Unknown Completed [facility] DTaP, Unspecified Formulation Unknown Completed [facility] Hep B, Adol or Pedi Dosage Unknown Completed [facility] HIB 4 Dose Schedule Unknown Completed [facility] MMR Unknown Completed [facility] IPV Unknown Completed [facility] Varicella (varivax)(chicken pox) Unknown Completed [facility] DTaP, Unspecified Formulation Unknown Completed [facility] Hep B, Adol or Pedi Dosage Unknown Completed [facility] HIB 4 Dose Schedule Unknown Completed [facility] MMR Unknown Completed [facility] IPV Unknown Completed [facility] Varicella (varivax)(chicken pox) Unknown Completed [facility] DTaP, Unspecified Formulation Unknown Completed [facility] Hep B, Adol or Pedi Dosage Unknown Completed [facility] HIB 4 Dose Schedule Unknown Completed [facility] MMR Unknown Completed [facility] IPV Unknown Completed [facility] Varicella (varivax)(chicken pox) Unknown Completed [facility] DTaP, Unspecified Formulation Unknown Completed [facility] Hep B, Adol or Pedi Dosage Unknown Completed [facility] HIB 4 Dose Schedule Unknown Completed [facility] MMR Unknown Completed [facility] IPV Unknown Completed [facility] Varicella (varivax)(chicken pox) Unknown Completed [facility] DTaP, Unspecified Formulation Unknown Completed [facility] Hep B, Adol or Pedi Dosage Unknown Completed [facility] HIB 4 Dose Schedule Unknown Completed [facility] MMR Unknown Completed [facility] IPV Unknown Completed [facility] Varicella (varivax)(chicken pox) Unknown Completed [facility] Influenza Virus Vaccine Quad IM, Preserv and ABX Free 6 MO-64 YRS (FLUCELVAX) Unknown Completed [facility] TDAP Unknown Completed [facility] MMR Unknown Completed [facility] DTaP, Unspecified Formulation Unknown Completed [facility] Hep B, Adol or Pedi Dosage Unknown Completed [facility] HIB 4 Dose Schedule Unknown Completed [facility] IPV Unknown Completed [facility] Varicella (varivax)(chicken pox) Unknown Completed [facility] Influenza Virus Vaccine Quad IM, Preserv and ABX Free 6 MO-64 YRS (FLUCELVAX) Unknown Completed [facility] TDAP Unknown Completed [facility] MMR Unknown Completed [facility] DTaP, Unspecified Formulation Unknown Completed [facility] Hep B, Adol or Pedi Dosage Unknown Completed [facility] HIB 4 Dose Schedule Unknown Completed [facility] IPV Unknown Completed [facility] Varicella (varivax)(chicken pox) Unknown Completed [facility] Influenza Virus Vaccine Quad IM, Preserv and ABX Free 6 MO-64 YRS (FLUCELVAX) Unknown Completed [facility] TDAP Unknown Completed [facility] MMR Unknown Completed [facility] DTaP, Unspecified Formulation Unknown Completed [facility] Hep B, Adol or Pedi Dosage Unknown Completed [facility] HIB 4 Dose Schedule Unknown Completed [facility] IPV Unknown Completed [facility] Varicella (varivax)(chicken pox) Unknown Completed [facility] HIB 4 Dose Schedule Unknown Completed [facility] Varicella (varivax)(chicken pox) Unknown Completed [facility] Influenza Virus Vaccine Quad IM, Preserv and ABX Free 6 MO-64 YRS (FLUCELVAX) Unknown Completed [facility] TDAP Unknown Completed [facility] MMR Unknown Completed [facility] DTaP, Unspecified Formulation Unknown Completed [facility] Hep B, Adol or Pedi Dosage Unknown Completed [facility] IPV Unknown Completed [facility] Influenza Virus Vaccine Quad IM, Preserv and ABX Free 6 MO-64 YRS (FLUCELVAX) Unknown Completed [facility] TDAP Unknown Completed [facility] MMR Unknown Completed [facility] DTaP, Unspecified Formulation Unknown Completed [facility] Hep B, Adol or Pedi Dosage Unknown Completed [facility] HIB 4 Dose Schedule Unknown Completed [facility] IPV Unknown Completed [facility] Varicella (varivax)(chicken pox) Unknown Completed [facility] Influenza Virus Vaccine Quad IM, Preserv and ABX Free 6 MO-64 YRS (FLUCELVAX) Unknown Completed [facility] TDAP Unknown Completed [facility] MMR Unknown Completed [facility] DTaP, Unspecified Formulation Unknown Completed [facility] Hep B, Adol or Pedi Dosage Unknown Completed [facility] HIB 4 Dose Schedule Unknown Completed [facility] IPV Unknown Completed [facility] Varicella (varivax)(chicken pox) Unknown Completed [facility] Influenza Virus Vaccine Quad IM, Preserv and ABX Free 6 MO-64 YRS (FLUCELVAX) Unknown Completed [facility] TDAP Unknown Completed [facility] MMR Unknown Completed [facility] DTaP, Unspecified Formulation Unknown Completed [facility] Hep B, Adol or Pedi Dosage Unknown Completed [facility] HIB 4 Dose Schedule Unknown Completed [facility] IPV Unknown Completed [facility] Varicella (varivax)(chicken pox) Unknown Completed [facility] Influenza Virus Vaccine Quad IM, Preserv and ABX Free 6 MO-64 YRS (FLUCELVAX) Unknown Completed [facility] TDAP Unknown Completed [facility] MMR Unknown Completed [facility] DTaP, Unspecified Formulation Unknown Completed [facility] Hep B, Adol or Pedi Dosage Unknown Completed [facility] HIB 4 Dose Schedule Unknown Completed [facility] IPV Unknown Completed [facility] Varicella (varivax)(chicken pox) Unknown Completed [facility] Influenza Virus Vaccine Quad IM, Preserv and ABX Free 6 MO-64 YRS (FLUCELVAX) Unknown Completed [facility] TDAP Unknown Completed [facility] MMR Unknown Completed [facility] DTaP, Unspecified Formulation Unknown Completed [facility] Hep B, Adol or Pedi Dosage Unknown Completed [facility] HIB 4 Dose Schedule Unknown Completed [facility] IPV Unknown Completed [facility] Varicella (varivax)(chicken pox) Unknown Completed [facility] Vital Signs Vital Name Observation Time Observation Value Comments S ource Systolic blood pressure 2023-10-12 19:28:00 135 mm[Hg] [facility] Diastolic blood pressure 2023-10-12 19:28:00 83 mm[Hg] [facility] Heart rate 2023-10-12 19:28:00 74 /min [facility] Body height 2023-10-12 19:28:00 165.1 cm [facility] Body weight 2023-10-12 19:28:00 45.723 kg [facility] BMI 2023-10-12 19:28:00 16.77 kg/m2 [facility] Systolic blood pressure 2023-07-20 20:08:00 110 mm[Hg] [facility] Diastolic blood pressure 2023-07-20 20:08:00 74 mm[Hg] [facility] Heart rate 2023-07-20 20:08:00 70 /min [facility] Respiratory rate 2023-07-20 20:08:00 18 /min [facility] Body height 2023-07-20 20:08:00 165.1 cm [facility] Body weight 2023-07-20 20:08:00 48.988 kg [facility] BMI 2023-07-20 20:08:00 17.97 kg/m2 [facility] Systolic blood pressure 2023-04-27 19:54:00 103 mm[Hg] [facility] Diastolic blood pressure 2023-04-27 19:54:00 68 mm[Hg] [facility] Heart rate 2023-04-27 19:54:00 88 /min [facility] Respiratory rate 2023-04-27 19:54:00 18 /min [facility] Body height 2023-04-27 19:54:00 165.1 cm [facility] Body weight 2023-04-27 19:54:00 47.628 kg [facility] BMI 2023-04-27 19:54:00 17.47 kg/m2 [facility] Systolic blood pressure 2023-01-26 21:23:00 100 mm[Hg] [facility] Diastolic blood pressure 2023-01-26 21:23:00 73 mm[Hg] [facility] Heart rate 2023-01-26 21:23:00 86 /min [facility] Body temperature 2023-01-26 21:23:00 36.44 [place] [facility] Respiratory rate 2023-01-26 21:23:00 17 /min [facility] Body height 2023-01-26 21:23:00 165.1 cm [facility] Body weight 2023-01-26 21:23:00 48.988 kg [facility] BMI 2023-01-26 21:23:00 17.97 kg/m2 [facility] Systolic blood pressure 2022-02-13 16:21:00 108 mm[Hg] [facility] Diastolic blood pressure 2022-02-13 16:21:00 71 mm[Hg] [facility] Heart rate 2022-02-13 16:21:00 66 /min [facility] Body temperature 2022-02-13 16:21:00 36.61 [place] [facility] Respiratory rate 2022-02-13 16:21:00 18 /min [facility] Body height 2022-02-13 16:21:00 [facility] 2022-02-13 16:21:00 49.442 kg [facility] BMI 2022-02-13 16:21:00 18.14 kg/m2 [facility] Systolic blood pressure 2022-01-21 13:45:00 110 mm[Hg] [facility] Diastolic blood pressure 2022-01-21 13:45:00 68 mm[Hg] [facility] Heart rate 2022-01-21 13:45:00 66 /min [facility] Body temperature 2022-01-21 13:45:00 36.5 [place] [facility] Respiratory rate 2022-01-21 13:45:00 16 /min [facility] Oxygen saturation in Arterial blood by Pulse oximetry 2022-01-21 13:45:00 100 /min [facility] Body height 2022-01-19 18:00:00 165.1 cm [facility] Body weight 2022-01-19 18:00:00 54.432 kg [facility] BMI 2022-01-19 18:00:00 19.97 kg/m2 [facility] Systolic blood pressure 2022-01-07 22:08:00 103 mm[Hg] [facility] Diastolic blood pressure 2022-01-07 22:08:00 67 mm[Hg] [facility] Heart rate 2022-01-07 22:08:00 80 /min [facility] Body temperature 2022-01-07 22:08:00 36.44 [place] [facility] Respiratory rate 2022-01-07 22:08:00 18 /min [facility] Body height 2022-01-07 22:08:00 165.1 cm [facility] Body weight 2022-01-07 22:08:00 55.248 kg [facility] BMI 2022-01-07 22:08:00 20.27 kg/m2 [facility] Systolic blood pressure 2021-12-24 19:13:00 111 mm[Hg] [facility] Diastolic blood pressure 2021-12-24 19:13:00 70 mm[Hg] [facility] Heart rate 2021-12-24 19:13:00 80 /min [facility] Body temperature 2021-12-24 19:13:00 36.94 [place] [facility] Body height 2021-12-24 19:13:00 165.1 cm [facility] Body weight 2021-12-24 19:13:00 54.341 kg [facility] BMI 2021-12-24 19:13:00 19.94 kg/m2 [facility] Systolic blood pressure 2021-12-05 15:50:00 100 mm[Hg] [facility] Diastolic blood pressure 2021-12-05 15:50:00 58 mm[Hg] [facility] Heart rate 2021-12-05 15:50:00 68 /min [facility] Body temperature 2021-12-05 15:50:00 36.56 [place] [facility] Body height 2021-12-05 15:50:00 165.1 cm [facility] Body weight 2021-12-05 15:50:00 55.43 kg [facility] BMI 2021-12-05 15:50:00 20.34 kg/m2 [facility] Systolic blood pressure 2021-11-07 15:49:00 114 mm[Hg] [facility] Diastolic blood pressure 2021-11-07 15:49:00 73 mm[Hg] [facility] Heart rate 2021-11-07 15:49:00 81 /min [facility] Body temperature 2021-11-07 15:49:00 36.83 [place] [facility] Respiratory rate 2021-11-07 15:49:00 16 /min [facility] Body height 2021-11-07 15:49:00 165.1 cm [facility] Body weight 2021-11-07 15:49:00 53.434 kg [facility] BMI 2021-11-07 15:49:00 19.60 kg/m2 [facility] Systolic blood pressure 2021-10-09 21:00:00 110 mm[Hg] [facility] Diastolic blood pressure 2021-10-09 21:00:00 71 mm[Hg] [place] [facility] Heart rate 2021-10-09 21:00:00 80 /min [facility] Body temperature 2021-10-09 21:00:00 36.72 [place] [facility] Respiratory rate 2021-10-09 21:00:00 18 /min [facility] Body height 2021-10-09 21:00:00 165.1 cm [facility] Body weight 2021-10-09 21:00:00 52.527 kg [facility] BMI 2021-10-09 21:00:00 19.27 kg/m2 [facility] Procedures Procedure Date / Time Performed Performing Clinician Source ASSIGNMENT OF BENEFITS 2023-01-26 20:58:50 Docto r Unassigned, [place] [facility] POCT TEST 2023-01-26 00:00:00 Murphy Benedict [facility] CONSENT FOR CONTRACEPTION 2022-02-13 06:01:00 Doctor Unassigned, [place] [facility] POCT TEST 2022-02-13 00:00:00 Bella Lazo [facility] CBC WITH DIFF 2022-01-20 12:38:00 Murphy Benedict [facility] TYPE AND SCREEN 2022-01-19 19:00:00 Ángela Aguilar [facility] RHO (D) IMMUNE GLOBULIN 2022-01-19 19:00:00 Renetta Burgess [facility] URINE DRUG (IMMUNOASSAY) - COMPREHENSIVE DRUG SCREEN 2022-01-19 18:07:00 Renetta Aguilar [facility] CBC WITH DIFF 2022-01-19 18:07:00 Mitzy Aguilar [facility] HEPATITIS B SURFACE ANTIGEN 2022-01-19 18:07:00 Jeff [facility] ADC OR ANGE ONLY - RPR 2022-01-19 18:07:00 Jeff [facility] HIV 1/2 AG-AB WITH REFLEX 2022-01-19 18:07:00 Jeff [facility] POCT URINALYSIS W/O SPECIFIC GRAVITY 2022-01-07 00:00:00 Deandre Lazo [facility] TDAP VACCINE, >11 YRS, IM 2021-12-24 19:15:44 Murphy Benedict [facility] FLU VACC (), 6 MO-64 YRS, .5ML, IM, QUAD (FLUCELVAX) 2021-12-24 19:15:44 Murphy Benedict [facility] POCT URINALYSIS W/O SPECIFIC GRAVITY 2021-12-24 00:00:00 Murphy Benedict [facility] POCT URINALYSIS W/O SPECIFIC GRAVITY 2021-12-05 00:00:00 Murphy Benedict [facility] POCT URINALYSIS W/O SPECIFIC GRAVITY 2021-11-07 15:55:00 Violet Deandre [facility] SECOND AND THIRD TRIMESTER ULTRASOUND 2021-10-22 19:01:00 Guillermina Sam [facility] POCT URINALYSIS W/O SPECIFIC GRAVITY 2021-10-09 00:00:00 Murphy Benedict [facility] SCANNED LAB RESULTS 2021-09-11 05:01:00 Doctor Felecia oviedogned, [place] [facility] PHYSICIAN ORDERS 2021-03-07 06:01:00 Doctor Gilma signed, [place] [facility] Encounters Start Date/Time End Date/Time Encounter Type Admission Type Attending Clinicians Care Facility Care Department Encounter ID Source 2021-03-12 12:34:11 Outpatient P MURPHY BENEDICT [facility] KINA [id number] [facility] 2020-12-17 01:33:20 Emergency [facility] [id number] [facility] 2020-12-16 22:56:37 Emergency [facility] [id number] [facility] 2024-02-02 15:30:00 2024-02-02 15:30:00 Outpatient R MARICHUY MURPHY RAZO [facility] [id number] [facility] 2024-01-28 15:00:00 2024-01-28 15:00:00 Outpatient R BENEDICTLOUISAMURPHY BERNAL [facility] [id number] [facility] 2024-01-07 14:30:00 2024-01-07 14:30:00 Outpatient R BENEDICT MURPHY RAZO [facility] [id number] [facility] 2024-01-04 14:00:00 2024-01-04 14:00:00 Outpatient R [facility] [id number] [facility] 2023-10-12 14:45:00 2023-10-12 14:45:00 Outpatient R BENEDICT MURPHY RAZO [facility] [id number] [facility] 2023-10-12 14:30:00 2023-10-12 14:30:00 Nurse Visit Nurse, Critical access hospital Murphy Benedict Nurse, [facility] 1.2.840.114 350.1.13.10 4.2.7.2.686 [id number] 134 [id number] [facility] 2023-07-20 14:30:00 2023-07-20 15:08:00 Outpatient MURPHY FAY [facility] [id number] [facility] 2023-07-20 14:30:00 2023-07-20 15:08:00 Nurse Visit Nurse, Critical access hospital Murphy Bneedict [facility] 1.2.840.114 350.1.13.10 4.2.7.2.686 [id number] 134 [id number] [facility] 2023-04-27 15:00:00 2023-04-27 15:00:00 Nurse Visit Nurse, Critical access hospital Renetta Stock [facility] BUILDING 1..840.114 350.1.13.10 4.2.7.2.686 [id number] 134 [id number] [facility] 2023-04-27 15:00:00 2023-04-27 14:54:46 Outpatient R SAAVEDRA-KARAN S, RENETTA SAAVEDRA-KARAN S, RENETTA [facility] [id number] [facility] 2023-01-27 00:00:00 2023-01-27 00:00:00 Case Management Murphy Benedict [facility] BUILDING 1..840.114 350.1.13.10 4.2.7.2.686 [id number] 134 [id number] [facility] 2023-01-27 00:00:00 2023-01-27 00:00:00 Patient Secure Msg Murphy Benedict [facility] BUILDING 1.840.114 350.1.13.10 4.2.7.2.686 [id number] 134 [id number] [facility] 2023-01-26 15:00:00 2023-01-26 15:52:42 Outpatient R MURPHY BENEDICT [facility] [id number] [facility] 2023-01-26 15:00:00 2023-01-26 15:52:42 Office Visit Murphy Benedict [facility] BUILDING 1.840.114 350.1.13.10 4.2.7.2.686 [id number] 134 [id number] [facility] 2023-01-26 00:00:00 2023-01-26 00:00:00 Orders Only Doctor Unassigned, [place] [facility] 1.84.114 350.1.13.10 4.2.7.2.686 [id number] [id number] [facility] 2023-01-23 00:00:00 2023-01-23 00:00:00 Patient Secure Msg Deandre Lazo [facility] NAL BUILDING 1.2.840.114 350.1.13.10 4.2.7.2.686 [id number] 134 [id number] [facility] 2022-12-23 00:00:00 2022-12-23 00:00:00 Patient Secure Msg Paresh Chavarria [facility] INFORMATION TECHNOLOGY [facility] 1.2.840.114 350.1.13.10 4.2.7.2.686 [id number] [facility] 2022-10-09 00:00:00 2022-10-09 00:00:00 Case Management Keila Gurrola [facility] 1.2.840.114 350.1.13.10 4.2.7.2.686 [id number] [facility] 2022-10-09 00:00:00 2022-10-09 00:00:00 Telephone Keila Gurrola [facility] 1.2.840.114 350.1.13.10 4.2.7.2.686 [id number] 086 [id number] [facility] 2022-07-21 13:00:00 2022-07-21 13:00:00 Outpatient R JOANN S, RENETTA JOANN S, RENETTA [facility] [id number] [facility] 2022-02-13 10:00:00 2022-02-13 10:39:56 Outpatient R ZHENJANIS SUTTONCY [facility] [id number] [facility] 2022-02-13 10:00:00 2022-02-13 10:39:56 Routine [facility] 1.2840.114 350.1.13.10 4.2.7.2.686 [id number] 134 [id number] [facility] 2022-02-13 00:00:00 2022-02-13 00:00:00 Orders Only Doctor Unassigned, [place] [facility] 1.840.114 350.1.13.10 4.2.7.2.686 [id number] [facility] 2022-01-21 16:15:00 2022-01-21 16:15:00 Outpatient R MURPHY BENEDICT [facility] [id number] [facility] 2022-01-19 11:39:00 2022-01-21 13:00:00 Inpatient X SAAVEDRA-KARAN S, RENETTA SAAVEDRA-KARAN S, RENETTA [facility] KINA [id number] [facility] 2022-01-19 11:39:00 2022-01-21 13:00:00 Hospital Encounter Saavedra-Karan s, Renetta [facility] 1.840.114 350.1.13.10 4.2.7.2.686 [id number] [id number] [facility] 2022-01-07 16:00:00 2022-01-07 16:15:00 Routine Visit Deandre Lazo [facility] 1..840.114 350.1.13.10 4.2.7.2.686 [id number] 134 [id number] [facility] 2022-01-07 16:00:00 2022-01-07 16:00:00 Outpatient R VIOLET [facility] [id number] [facility] 2021-12-31 15:00:00 2021-12-31 15:30:00 Director Operations Visit Ultrasound, Adc MfBrayan Llamas [facility] 1..840.114 350.1.13.10 4.2.7.2.686 [id number] 134 [id number] [facility] 2021-12-31 15:00:00 2021-12-31 15:00:00 Outpatient P LEANNE BROWNINGCHARLIE BRAYAN Morales [facility] [id number] [facility] 2021-12-24 13:00:00 2021-12-24 13:40:00 Outpatient R MURPHY BENEDICT [facility] [id number] [facility] 2021-12-24 13:00:00 2021-12-24 13:40:00 Routine Visit Murphy Benedict [facility] BUILDING 1..840.114 350.1.13.10 4.2.7.2.686 [id number] 134 [id number] [facility] 2021-12-05 11:00:00 2021-12-05 11:57:29 Routine Visit Deandre LazoMurphy [facility] BUILDING 1..840.114 350.1.13.10 4.2.7.2.686 [id number] 134 [id number] [facility] 2021-12-05 09:30:00 2021-12-05 10:43:18 Outpatient R VIOLET [facility] [id number] [facility] 2021-12-05 09:30:00 2021-12-05 10:43:18 Director Operations Visit 2, Adc Lab Violet [facility] BUILDING 1..840.114 350.1.13.10 4.2.7.2.686 [id number] 353 [id number] [facility] 2021-11-07 10:45:00 2021-11-07 11:22:07 Outpatient R VIOLET DEANDRE [facility] [id number] [facility] 2021-11-07 10:45:00 2021-11-07 11:22:07 [facility] 1..840.114 350.1.13.10 4.2.7.2.686 [id number] 134 [id number] [facility] 2021-11-06 11:00:00 2021-11-06 11:00:00 Outpatient R DEANDRE LAZO [facility] [id number] [facility] 2021-10-31 10:30:00 2021-10-31 10:30:00 Outpatient R VIOLET [facility] [id number] [facility] 2021-10-31 10:30:00 2021-10-31 10:30:00 Outpatient R VIOLET [facility] [id number] [facility] 2021-10-22 13:00:00 2021-10-22 14:16:08 Director Operations Visit Ultrasound, Adc erik Estrella Soraya Rocio [facility] 1.2.840.114 350.1.13.10 4.2.7.2.686 [id number] 134 [id number] [facility] 2021-10-22 13:00:00 2021-10-22 13:00:00 Outpatient P SORAYA ESTRELLA [facility] [id number] [facility] 2021-10-09 15:45:00 2021-10-09 16:23:43 Outpatient R MURPHY BENEDICT [facility] [id number] [facility] 2021-10-09 15:45:00 2021-10-09 16:23:43 Routine Visit Murphy Benedict [facility] 1.2.840.114 350.1.13.10 4.2.7.2.686 [id number] 134 [id number] [facility] 2021-09-19 00:00:00 2021-09-19 00:00:00 Telephone Murphy Benedict [facility] 1.2.840.114 350.1.13.10 4.2.7.2.686 [id number] 134 [id number] [facility] 2021-09-16 00:00:00 2021-09-16 00:00:00 Patient Secure Msg [facility] 1.2.840.114 350.1.13.10 4.2.7.2.686 [id number] 134 [id number] [facility] 2021-09-12 00:00:00 2021-09-12 00:00:00 Patient Secure Msg Henny Correa [facility] 1.2.840.114 350.1.13.10 4.2.7.2.686 [id number] 134 [id number] [facility] 2021-09-12 00:00:00 2021-09-12 00:00:00 Patient Secure Msg Murphy Benedict [facility] BU[facility] 1.2.840.114 350.1.13.10 4.2.7.2.686 [id number] 134 [id number] [facility] 2021-09-11 11:30:00 2021-09-11 11:45:00 Director Operations Visit 2, Adc Lab AdHope velazquezian Litzy [facility] BUILDING 1.2.840.114 350.1.13.10 4.2.7.2.686 [id number] 353 [id number] [facility] 2021-09-11 11:15:00 2021-09-11 11:19:14 Outpatient R GUILLERMINA SAM [facility] [id number] [facility] 2021-09-11 11:15:00 2021-09-11 11:19:14 Routine Visit Guillermina Sam [facility] BUILDING 1.2.840.114 350.1.13.10 4.2.7.2.686 [id number] 134 [id number] [facility] 2021-09-11 10:30:00 2021-09-11 10:30:00 Outpatient R MURPHY BENEDICT [facility] [id number] [facility] 2021-09-11 00:00:00 2021-09-11 00:00:00 Orders Only Doctor Unassigned, [place] [facility] 1.2.840.114 350.1.13.10 4.2.7.2.686 [id number] [facility] 2021-09-03 13:15:00 2021-09-03 13:15:00 Outpatient R MURPHY BENEDICT [facility] [id number] [facility] 2021-08-20 00:00:00 2021-08-20 00:00:00 Patient Secure Janett Juarez [facility] 1.2.840.114 350.1.13.10 4.2.7.2.686 [id number] 134 [id number] [facility] 2021-08-06 11:30:00 2021-08-06 11:45:00 Director Operations Visit 2, Adc Lab Violet [facility] 1.2.840.114 350.1.13.10 4.2.7.2.686 [id number] 353 [id number] [facility] 2021-08-06 10:30:00 2021-08-06 10:53:52 [facility] [id number] [facility] 2021-08-06 10:30:00 2021-08-06 10:53:52 Routine Visit Violet [facility] 1.2.840.114 350.1.13.10 4.2.7.2.686 [id number] 134 [id number] [facility] 2021-07-31 09:00:00 2021-07-31 09:00:00 Outpatient R VIOLET [facility] [id number] [facility] 2021-07-24 11:45:00 2021-07-24 12:00:00 Director Operations Visit 2, Adc Lab Benedict, [facility] BU[facility] 1.2.840.114 350.1.13.10 4.2.7.2.686 [id number] 353 [id number] [facility] 2021-07-24 11:45:00 2021-07-24 11:45:00 [facility] [id number] [facility] 2021-07-24 11:00:00 2021-07-24 11:00:00 Outpatient R VIOLET [facility] [id number] [facility] 2021-07-24 00:00:00 2021-07-24 00:00:00 Orders Only Doctor Unassigned, [place] [facility] 1.2.840.114 350.1.13.10 4.2.7.2.686 [id number] [id number] [facility] 2021-06-26 14:30:00 2021-06-26 15:41:47 Outpatient R MARICHUY [facility] [id number] [facility] 2021-06-26 14:30:00 2021-06-26 15:41:47 Initial Visit Murphy Benedict [facility] BUILDING 1.2.840.114 350.1.13.10 4.2.7.2.686 [id number] 134 [id number] [facility] 2021-06-26 00:00:00 2021-06-26 00:00:00 Orders Only Doctor Unassigned, [place] [facility] 1.2.840.114 350.1.13.10 4.2.7.2.686 [id number] [id number] [facility] 2021-05-15 11:00:00 2021-05-15 11:47:21 Outpatient Rocio LAZO [facility] [id number] [facility] 2021-05-15 11:00:00 2021-05-15 11:47:[address] [facility] 1.2.840.114 350.1.13.10 4.2.7.2.686 [id number] 134 [id number] [facility] 2021-05-09 13:00:00 2021-05-09 13:00:00 Outpatient R MURPHY BENEDICT [facility] [id number] [facility] 2021-04-17 13:00:00 2021-04-17 13:28:26 Outpatient R MURPHY BENEDICT [facility] [id number] [facility] 2021-04-17 13:00:00 2021-04-17 13:28:26 Routine Visit Murphy Benedict [facility] BUILDING 1.2840.114 350.1.13.10 4.2.7.2.686 [id number] 134 [id number] [facility] 2021-03-12 23:33:00 2021-03-14 13:55:00 Inpatient X MURPHY BENEDICT [facility] KINA [id number] [facility] 2021-03-12 23:33:00 2021-03-14 13:55:00 Hospital Encounter Murphy Benedict [facility] 1.2.840.114 350.1.13.10 4.2.7.2.686 [id number] [id number] [facility] 2021-03-13 00:44:00 2021-03-13 10:30:00 Anesthesia Event Joshua Cardenas [facility] 1.2.840.114 350.1.13.10 4.2.7.2.686 [id number] [id number] [facility] 2021-03-12 12:00:00 2021-03-12 12:15:00 Laboratory Only Only, Adc Test Murphy Benedict [facility] 1.2.840.114 350.1.13.10 4.2.7.2.686 [id number] 353 [id number] [facility] 2021-03-12 12:00:00 2021-03-12 12:00:00 Outpatient R MARICHUY MURPHY [facility] [id number] [facility] 2021-03-12 00:00:00 2021-03-12 00:00:00 Orders Only Doctor Unassigned, [place] [facility] 1.2840.114 350.1.13.10 4.2.7.2.686 [id number] [id number] [facility] 2021-03-07 15:00:00 2021-03-07 15:15:00 Routine Visit Deandre Lazo [facility] 1..840.114 350.1.13.10 4.2.7.2.686 [id number] 134 [id number] [facility] 2021-03-07 15:00:00 2021-03-07 15:00:00 Outpatient R VIOLET [facility] [id number] [facility] 2021-03-07 00:00:00 2021-03-07 00:00:00 Orders Only Doctor Unassigned, [place] [facility] 1.2840.114 350.1.13.10 4.2.7.2.686 [id number] [facility] 2021-02-28 09:45:00 2021-02-28 10:46:39 Outpatient R MURPHY BENEDICT [facility] [id number] [facility] 2021-02-28 09:45:00 2021-02-28 10:46:39 Routine Visit Murphy Benedict [facility] 1..840.114 350.1.13.10 4.2.7.2.686 [id number] 134 [id number] [facility] 2021-02-20 15:30:00 2021-02-20 15:45:00 Director Operations Visit Pob, Adc Lab Main Violet [facility] BUILDING 1.2.840.114 350.1.13.10 4.2.7.2.686 [id number] 353 [id number] [facility] 2021-02-20 14:30:00 2021-02-20 15:22:57 Outpatient R VIOLET [facility] [id number] [facility] 2021-02-20 14:30:00 2021-02-20 15:22:57 Routine Visit Deandre Lazo [facility] BUILDING 1.2.840.114 350.1.13.10 4.2.7.2.686 [id number] 134 [id number] [facility] 2021-02-20 00:00:00 2021-02-20 00:00:00 Letter (Out) Violet [facility] 1.2.840.114 350.1.13.10 4.2.7.2.686 [id number] 134 [id number] [facility] 2021-02-20 00:00:00 2021-02-20 00:00:00 Orders Only Doctor Unassigned, [place] [facility] 1.2.840.114 350.1.13.10 4.2.7.2.686 [id number] [id number] [facility] 2021-02-06 15:15:00 2021-02-06 15:51:30 Outpatient R MURPHY BENEDICT [facility] [id number] [facility] 2021-02-06 15:15:00 2021-02-06 15:51:30 Routine Visit Murphy Benedict [facility] 1.2.840.114 350.1.13.10 4.2.7.2.686 [id number] 134 [id number] [facility] 2021-01-24 16:16:14 2021-01-24 16:42:23 Routine Visit Guillermina Sam Vien [facility] BUILDING 1.840.114 350.1.13.10 4.2.7.2.686 [id number] 134 [id number] [facility] 2021-01-24 16:15:00 2021-01-24 16:42:23 Outpatient R BELLAGWEN GUILLERMINA [facility] [id number] [facility] 2021-01-14 00:00:00 2021-01-14 00:00:00 Patient Secure Msg Murphy Benedict [facility] BUILDING 1.84.114 350.1.13.10 4.2.7.2.686 [id number] 134 [id number] [facility] 2021-01-09 11:31:20 2021-01-09 12:05:42 Routine Visit Violet Deandre [facility] 1.84.114 350.1.13.10 4.2.7.2.686 [id number] 134 [id number] [facility] 2021-01-09 11:30:00 2021-01-09 12:05:42 Outpatient R VIOLET DEANDRE [facility] [id number] [facility] 2020-12-26 09:14:45 2020-12-26 09:19:19 Director Operations Visit 2, Adc Lab Murphy Benedict [facility] BUILDING 1.84.114 350.1.13.10 4.2.7.2.686 [id number] 353 [id number] [facility] 2020-12-26 08:45:00 2020-12-26 08:45:00 Outpatient R MURPHY BENEDICT [facility] [id number] [facility] 2020-12-26 00:00:00 2020-12-26 00:00:00 Orders Only Doctor Unassigned, [place] [facility] 1.84.114 350.1.13.10 4.2.7.2.686 [id number] [facility] 2020-12-12 15:22:47 2020-12-12 16:53:30 Routine Visit Murphy Benedict [facility] 1.2.840.114 350.1.13.10 4.2.7.2.686 [id number] 134 [id number] [facility] 2020-12-12 15:30:00 2020-12-12 15:30:00 Outpatient R MURPHY BENEDICT [facility] [id number] [facility] 2020-11-14 11:19:34 2020-11-14 11:46:15 [facility] 1.2.840.114 350.1.13.10 4.2.7.2.686 [id number] 134 [id number] [facility] 2020-11-14 11:00:00 2020-11-14 11:00:00 [facility] [id number] [facility] 2020-11-02 10:30:29 2020-11-02 11:30:29 Director Operations Visit Ultrasound, Adc Mfm Chai Carcam[facility] Building 1.2.840.114 350.1.13.10 4.2.7.2.686 [id number] 134 [id number] [facility] 2020-11-02 10:30:00 2020-11-02 10:30:00 Outpatient P [facility] [id number] [facility] 2020-10-17 12:06:26 2020-10-17 12:21:26 Director Operations Visit Pob, Adc Lab Main Murphy Benedict [facility] Building 1.2.840.114 350.1.13.10 4.2.7.2.686 [id number] 353 [id number] [facility] 2020-10-17 12:06:26 2020-10-17 12:21:26 Director Operations Visit Pob, Adc Lab Main Murphy Benedict [facility] Building 1.2.840.114 350.1.13.10 4.2.7.2.686 [id number] 353 [id number] [facility] 2020-10-17 11:12:17 2020-10-17 11:51:22 Routine Visit Murphy Benedict [facility] 1.2.840.114 350.1.13.10 4.2.7.2.686 [id number] 134 [id number] [facility] 2020-10-17 11:00:00 2020-10-17 11:00:00 Outpatient R MURPHY BENEDICT [facility] [id number] [facility] 2020-09-27 00:00:00 2020-09-27 00:00:00 Patient Secure Msg Murphy Benedict [facility] 1.2.840.114 350.1.13.10 4.2.7.2.686 [id number] 134 [id number] [facility] 2020-09-21 00:00:00 2020-09-21 00:00:00 Case Management Deandre Lazo [facility] 1.2.840.114 350.1.13.10 4.2.7.2.686 [id number] 134 [id number] [facility] 2020-09-21 00:00:00 2020-09-21 00:00:00 Patient Secure Msg Murphy Benedict [facility] BUILDING 1.2.840.114 350.1.13.10 4.2.7.2.686 [id number] 134 [id number] [facility] 2020-09-19 10:10:24 2020-09-19 10:46:31 [facility] 1.2.840.114 350.1.13.10 4.2.7.2.686 [id number] 134 [id number] [facility] 2020-09-19 10:00:00 2020-09-19 10:00:00 Outpatient R DEANDRE LAZO [facility] [id number] [facility] 2020-08-30 00:00:00 2020-08-30 00:00:00 Telephone Murphy Benedict [facility] Building 1.2.840.114 350.1.13.10 4.2.7.2.686 [id number] 134 [id number] [facility] 2020-08-29 00:00:00 2020-08-29 00:00:00 Case Management Murphy Benedict [facility] Building 1.2.840.114 350.1.13.10 4.2.7.2.686 [id number] 134 [id number] [facility] 2020-08-23 09:03:07 2020-08-23 09:18:07 Director Operations Visit 2, Adc Lab Murphy Benedict [facility] Building 1.2.840.114 350.1.13.10 4.2.7.2.686 [id number] 353 [id number] [facility] 2020-08-23 09:00:00 2020-08-23 09:00:00 Outpatient R MURPHY BENEDICT [facility] [id number] [facility] 2020-08-22 12:46:46 2020-08-22 13:37:10 Routine Visit Murphy Benedict [facility] Building 1.2.840.114 350.1.13.10 4.2.7.2.686 [id number] 134 [id number] [facility] 2020-08-22 13:00:00 2020-08-22 13:00:00 Outpatient R MURPHY BENEDICT [facility] [id number] [facility] 2020-08-20 13:45:00 2020-08-20 13:45:00 Outpatient R [facility] [id number] [facility] 2020-08-20 00:00:00 2020-08-20 00:00:00 Patient Secure Msg Murphy Benedict [facility] PROF[facility] NAL BUILDING 1.2.840.114 350.1.13.10 4.2.7.2.686 [id number] 134 [id number] [facility] 2020-08-07 14:00:00 2020-08-07 14:00:00 Outpatient R ABIMAELKAITLIN BOB [facility] [id number] [facility] 2020-08-01 09:47:00 2020-08-01 12:26:00 Emergency Shashank Epps [facility] 1.2.840.114 350.1.13.10 4.2.7.2.686 [id number] [facility] 2020-07-30 00:00:00 2020-07-30 00:00:00 Telephone Murphy Benedict [facility] Building 1.2.840.114 350.1.13.10 4.2.7.2.686 [id number] 134 [id number] [facility] 2020-07-27 00:00:00 2020-07-27 00:00:00 Patient Secure Msg Murphy Benedict [facility] 1.2.840.114 350.1.13.10 4.2.7.2.686 [id number] 134 [id number] [facility] 2020-07-26 13:28:22 2020-07-26 14:23:00 Initial Visit Murphy Benedict [facility] 1.2.840.114 350.1.13.10 4.2.7.2.686 [id number] 134 [id number] [facility] 2020-07-26 14:00:00 2020-07-26 14:00:00 Outpatient R BENEDICTMURPHY [facility] [id number] [facility] 2020-07-24 00:00:00 2020-07-24 00:00:00 Telephone Shelia Pennington [facility] INFORMATION TECHNOLOGY [facility]NA[facility]ST [facility] MATERNAL & CHILD [facility] 1.0.114 [id number] [id number] [id number] [facility] 2020-07-23 10:07:29 2020-07-23 10:31:37 Director Operations Visit Lab, Ed-Rmp Bob Kruse [facility] INFORMATION TECHNOLOGY ANALYST [facility] CHILD [facility] 1..114 [id number] [id number] [id number] [facility] 2020-07-23 10:30:00 2020-07-23 10:30:00 Outpatient R [facility] [id number] [facility] 2020-07-19 11:38:00 2020-07-19 14:34:00 Emergency Thao Toth [facility] 1..114 [id number] [id number] [facility] 2020-07-19 00:00:00 2020-07-19 00:00:00 Telephone Paresh Chavarria [facility] INFORMATION TECHNOLOGY [facility]ST [facility] & CHILD [facility] 1..114 [id number] [id number] [id number] [facility] 2020-07-19 00:00:00 2020-07-19 00:00:00 Telephone Bob Kruse [facility] INFORMATION TECHNOLOGY [facility] & CHILD [facility] [place] 1.20.114 350.1.13.10 4.2.7.2.686 [id number] [facility] 2020-07-17 00:00:00 2020-07-17 00:00:00 Patient Secure Bob Aggarwal [facility] INFORMATION TECHNOLOGY [facility]ILD [facility] 1.2.840.114 350.1.13.10 4.2.7.2.686 [id number] [facility] 2020-07-17 00:00:00 2020-07-17 00:00:00 Patient Secure Bob Aggarwal [facility] INFORMATION TECHNOLOGY [facility]ILD [facility] 1.2.840.114 350.1.13.10 4.2.7.2.686 [id number] [facility] 2020-07-17 00:00:00 2020-07-17 00:00:00 Patient Secure Bob Aggarwal [facility] INFORMATION TECHNOLOGY [facility] & CHILD [facility] 1.2.840.114 350.1.13.10 4.2.7.2.686 [id number] [facility] 2020-07-10 13:57:00 2020-07-10 15:03:02 Initial Visit Bob Kruse [facility] INFORMATION TECHNOLOGY [facility] & CHILD [facility] 1.2.840.114 350.1.13.10 4.2.7.2.686 [id number] [facility] 2020-07-10 13:00:00 2020-07-10 13:00:00 Outpatient R BOB KRUSE [facility] [id number] [facility] 2020-07-10 00:00:00 2020-07-10 00:00:00 Orders Only Doctor Unassigned, [place] [facility] 1.2.840.114 350.1.13.10 4.2.7.2.686 [id number] [facility] 2020-05-22 15:29:24 2020-05-22 23:59:00 Hospital Encounter Wiley Enrique [facility] 1..114 350.1.13.10 4.2.7.2.686 [id number] [facility] 2020-05-22 15:30:00 2020-05-22 15:30:00 Outpatient R DEIRDRE TOMLINSON [facility] [id number] [facility] 2020-05-07 13:52:12 2020-05-07 15:17:03 Office Visit [facility] Resident Wiley Enrique [facility] 1..114 350.1.13.10 4.2.7.2.686 [id number] [facility] 2020-05-07 13:45:00 2020-05-07 13:45:00 Outpatient R [facility] [id number] [facility] 2020-05-07 00:00:00 2020-05-07 00:00:00 Orders Only Doctor Unassigned, [place] [facility] ..114 350.1.13.10 4.2.7.2.686 [id number] [facility] 2020-05-02 13:30:00 2020-05-02 13:30:00 Outpatient R [facility] [id number] [facility] 2020-05-02 13:30:00 2020-05-02 13:30:00 Outpatient R [facility] [id number] [facility] 2020-04-17 15:12:31 2020-04-17 16:00:01 Office Visit Paresh Chavarria R [facility] INFORMATION TECHNOLOGY ANALY[facility] 1.840.114 350.1.13.10 4.2.7.2.686 [id number] [facility] 2020-04-17 15:15:00 2020-04-17 15:15:00 Outpatient PARESH DAVIS [facility] [id number] [facility] 2020-04-17 00:00:00 2020-04-17 00:00:00 Orders Only Doctor Unassigned, [place] [facility] 1.2840.114 350.1.13.10 4.2.7.2.686 [id number] [facility] 2020-04-03 14:30:00 2020-04-03 14:30:00 Outpatient PARESH DAVIS [facility] [id number] [facility] 2020-03-15 13:45:00 2020-03-15 13:45:00 Outpatient DOMINGO DAVISPAMiguel Ángel [facility] [id number] [facility] 2020-03-06 12:53:32 2020-03-06 14:01:34 Office Visit Paresh Chavarria [facility] INFORMATION TECHNOLOGY ANALYST [facility] MATERNAL & CHILD [facility] 1.2.840.114 350.1.13.10 4.2.7.2.686 [id number] [facility] 2020-03-06 12:53:32 2020-03-06 14:01:34 Office Visit Paresh Chavarria [facility] INFORMATION TECHNOLOGY [facility] 1.2.840.114 350.1.13.10 4.2.7.2.686 [id number] 2020-03-06 13:00:00 2020-03-06 13:00:00 Outpatient PARESH DAVIS [facility] [id number] [facility] 2020-03-06 00:00:00 2020-03-06 00:00:00 Orders Only Doctor Unassigned, [place] [facility] 1.2840.114 350.1.13.10 4.2.7.2.686 [id number] [facility] 2020-02-28 15:30:00 2020-02-28 15:30:00 Outpatient PARESH DAVIS [facility] [id number] [facility] 2020-02-01 13:15:00 2020-02-01 13:15:00 Outpatient PARESH DAVIS [facility] [id number] [facility] 2020-01-24 00:00:00 2020-01-24 00:00:00 Patient Secure Msg Doctor Unassigned, [place] [facility] INFORMATION TECHNOLOGY [facility] 1..840.114 350.1.13.10 4.2.7.2.686 [id number] [facility] 2019-09-21 13:00:00 2019-09-21 13:00:00 Outpatient PARESH DAVIS [facility] [id number] [facility] 2019-09-06 15:30:00 2019-09-06 15:30:00 Outpatient PARESH DAVIS [facility] [id number] [facility] 2019-08-30 09:30:00 2019-08-30 09:30:00 Outpatient JOON DAVISPATRICIO [facility] [id number] [facility] 2019-08-03 00:00:00 2019-08-03 00:00:00 Patient Secure Msg Doctor Unassigned, [place] [facility]FORMATION [facility] 1..840.114 350.1.13.10 4.2.7.2.686 [id number] [facility] 2019-08-03 00:00:00 2019-08-03 00:00:00 Patient Secure Msg Doctor Unassigned, [place] [facility] ..840.114 350.1.13.10 4.2.7.2.686 [id number] [facility] 2018-09-29 00:00:00 2018-09-29 00:00:00 Telephone Henny Martin [facility] 1.20.114 350.1.13.10 4.2.7.2.686 [id number] [facility] 2018-09-27 08:08:42 2018-09-27 09:07:16 Nurse Visit Visit, [facility] Nurse Paresh Chavarria [facility] INFORMATION TECHNOLOGY ANALYST [facility] MATERNAL & CHILD [facility] 1.2840.114 350.1.13.10 4.2.7.2.686 [id number] [facility] 2018-09-17 00:00:00 2018-09-17 00:00:00 Patient Secure Msg Paresh Chavarria [facility] INFORMATION TECHNOLOGY [facility]NA[facility]ILD [facility] 1.2840.114 350.1.13.10 4.2.7.2.686 [id number] [facility] 2018-09-15 00:00:00 2018-09-15 00:00:00 Telephone Henny Martin [facility] 1.0.114 350.1.13.10 4.2.7.2.686 [id number] [facility] 2018-09-14 00:00:00 2018-09-14 00:00:00 Telephone Paresh Chavarria [facility] INFORMATION TECHNOLOGY ANALYST [facility] CHILD [facility] 1.2840.114 350.1.13.10 4.2.7.2.686 [id number] [facility] 2018-09-13 15:26:20 2018-09-13 16:22:32 Office Visit Paresh Chavarria [facility] INFORMATION TECHNOLOGY ANALYST [facility] CHILD [facility] 1.2.840.114 350.1.13.10 4.2.7.2.686 [id number] [facility] 2018-09-13 00:00:00 2018-09-13 00:00:00 Orders Only Doctor Unassigned, [place] [facility] 1.2.840.114 350.1.13.10 4.2.7.2.686 [id number] [facility] Results Test Description Test Time Test Comments Results Result Co mments [id number] 21:32:00* Test Item Value Reference Range Interpretation Comme nts POCT PREG (test code = 1605) Negative On board controls acceptable with C Line (test code = 3574) Yes POCT PREG LOT # (test code = 3575) POCT PREG TEST DATE ( test code = 3576) [facility] [id number] 16:37:00* Test Item Value Reference Range Interpretation Comme nts POCT PREG (test code = 1605) Negative On board controls acceptable with C Line (test code = 3574) Yes POCT PREG LOT # (test code = 3575) POCT PREG TEST DATE ( test code = 3576) [facility] WITH [id number] 13:15:22* Test Item Value Reference Range Interpretation Comme nts WBC (test code = 6690-2) See_Comment [Automated messa ge] The system which generated this result transmitted reference range: 4.30 - 11.10 10*3/?L. The reference range was not used to interpret this result as normal/abnormal. RBC (test code = 789-8) See_Comment L [Automated messa ge] The system which generated this result transmitted reference range: 3.93 - 5.25 10*6/?L. The reference range was not used to interpret this result as normal/abnormal. HGB (test code = 718-7) 10.5 g/dL 11.6-15.0 L HCT (test code = 4544-3) 32.0 % 35.7-45.2 L MCV (test code = 787-2) 84.9 fL 80.6-95.5 MCH (test code = 785-6) 27.9 pg 25.9-32.8 MCHC (test code = 786-4) 32.8 g/dL 31.6-35.1 RDW-SD (test code = 10122-9) 40.4 fL 39.0-49.9 RDW-CV (test code = 788-0) 13.2 % 12.0-15.5 PLT (test code = 777-3) See_Comment L [Automated messa ge] The system which generated this result transmitted reference range: 166 - 358 10*3/?L. The reference range was not used to interpret this result as normal/abnormal. MPV (test code = 22742-8) 11.1 fL 9.5-12.9 NRBC/100 WBC (test code = 2667932278) See_Comment [Automated [employer] ssage] The system which generated this result transmitted reference range: 0.0 - 10.0 /100 WBCs. The reference range was not used to interpret this result as normal/abnormal. NRBC x10^3 (test code = 1262786389) See_Comment [Automated messa ge] The system which generated this result transmitted reference range: 10*3/?L. The reference range was not used to interpret this result as normal/abnormal. GRAN MAT (NEUT) % (test code = 770-8) 69.0 % IMM GRAN % (test code = 0491899098) 0.30 % LYMPH % (test code = 736-9) 20.8 % MONO % (test code = 5905-5) 7.2 % EOS % (test code = 713-8) 2.2 % BASO % (test code = 706-2) 0.5 % GRAN MAT x10^3(ANC) (test code = 1033205765) 4.38 10*3/uL 1.88-7.09 IMM GRAN x10^3 (test code = 8192905654) 0.00-0.06 LYMPH x10^3 (test code = 731-0) 1.32 10*3/uL 1.32-3.29 MONO x10^3 (test code = 742-7) 0.46 10*3/uL 0.33-0.92 EOS x10^3 (test code = 711-2) 0.14 10*3/uL 0.03-0.39 BASO x10^3 (test code = 704-7) 0.03 10*3/uL 0.01-0.07 Lab Interpretation (test code = 44743-1) Abnormal [facility] (D) IMMUNE [id number] 20:32:22* Test Item Value Reference Range Interpretation Comme nts RHIG CANDIDATE? (test code = 5055) No- see comment Patient is not a candidate for RhIg- Patient is Rh Positive.Performed at [facility] Laboratory Services - [facility] Blood [address] [place] [address] Free: [phone] No. [id number] [facility]Type and Screen - [id number] 19:46:05* Test Item Value Reference Range Interpretation Comme [facility] ABO & RH (test code = 20) A Positive Performed at [facility] Laboratory [facility] - [facility] Blood [address] [place] [address] Free: [phone] No. [id number] IAT (test code = 1185) Negative Performed at [facility] Laboratory Services [facility] Blood [address] [place] [address] Free: [phone] No. [id number] [facility] W/O SPECIFIC [id number] 22:05:00* Test Item Value Reference Range Interpretation Comme nts POCT PH U (test code = 3254) n/a 5-8 POCT U LEUK EST (test code = 3263) n/a Negative - Negative POCT U NIT (test code = 3262) n/a Negative - Negati ve POCT U PROT (test code = 3259) negative Negative - Negat adwoa POCT U GLU (test code = 3256) negative Negative - Negati ve POCT U KETONE (test code = 3258) n/a Negative - Neg ative POCT U BLD (test code = 3257) n/a Negative - Negati ve [facility] W/O SPECIFIC [id number] 19:11:00* Test Item Value Reference Range Interpretation Comme nts POCT PH U (test code = 3254) n/a 5-8 POCT U LEUK EST (test code = 3263) n/a Negative - Negative POCT U NIT (test code = 3262) n/a Negative - Negati ve POCT U PROT (test code = 3259) Negative Negative - Negat adwoa POCT U GLU (test code = 3256) Normal Negative - Negati ve POCT U KETONE (test code = 3258) n/a Negative - Neg ative POCT U BLD (test code = 3257) n/a Negative - Negati ve [facility] URINALYSIS W/O SPECIFIC [id number] 15:48:00* Test Item Value Reference Range Interpretation Comme nts POCT PH U (test code = 3254) n/a 5-8 POCT U LEUK EST (test code = 3263) n/a Negative - Negative POCT U NIT (test code = 3262) n/a Negative - Negati ve POCT U PROT (test code = 3259) Negative Negative - Negat adwoa POCT U GLU (test code = 3256) Negative - Negati ve POCT U KETONE (test code = 3258) n/a Negative - Neg ative POCT U BLD (test code = 3257) n/a Negative - Negati ve [facility] URINALYSIS W/O SPECIFIC [id number] 15:55:00* Test Item Value Reference Range Interpretation Comme nts POCT PH U (test code = 3254) n/a 5-8 POCT U LEUK EST (test code = 3263) n/a Negative - Negative POCT U NIT (test code = 3262) n/a Negative - Negati ve POCT U PROT (test code = 3259) trace Negative - Negat adwoa POCT U GLU (test code = 3256) negative Negative - Negati ve POCT U KETONE (test code = 3258) n/a Negative - Neg ative POCT U BLD (test code = 3257) n/a Negative - Negati ve [facility] URINALYSIS W/O SPECIFIC [id number] 20:57:00* Test Item Value Reference Range Interpretation Comme nts POCT PH U (test code = 3254) n/a 5-8 POCT U LEUK EST (test code = 3263) n/a Negative - Negative POCT U NIT (test code = 3262) n/a Negative - Negati ve POCT U PROT (test code = 3259) negative Negative - Negat adwoa POCT U GLU (test code = 3256) negative Negative - Negati ve POCT U KETONE (test code = 3258) n/a Negative - Neg ative POCT U BLD (test code = 3257) n/a Negative - Negati ve [facility] Notes Date/Time Note Provider Source 2022-10-09 10:54:24 Formatting of this n ote is different from the original. 10/09/22 [facility]ness [facility] Outreach team contacted patient to assist in completing Health Maintenance topics that are overdue. Renu Hodder [id number] Attempt Number: 1st attempt Health Maintenance topics addressed: Health Maintenance Due Topic Date Due SARS-CoV-2 (COVID-19) Vaccine (1) Never done PNEUMOCOCCAL 0-64 YEARS COMBINED SERIES (1 - PCV) Never done HPV VACCINES (1 - 2-dose series) Never done Depression Screening Never done Call outcome: Attempted to get in contact with patient to discuss overdue health maintenance and r/s wwe appt. Number on file is disconnected. Sent patient message via [employer] regarding overdue health maintenance. T [facility]
[2024-04-18] MEDS ORDERED: METHYLPREDNISOLONE 125 MG INJ ONE (18:59)
[2024-04-18] MEDS ORDERED: DIPHENHYDRAMINE 25 MG TAB/CAP ONE (19:00)
[2024-04-18] MEDS ORDERED: FAMOTIDINE 20 MG TAB ONE (19:00)
--- NOTE | 2024-04-18 19:35 | EDPHYS ---
Physician Documentation [facility] Name: Kenyatta Mejía Age: 28 yrs Sex: Female : 1995 Arrival Date: 04/18/2024 Time: 18:05 Bed 11 Private MD: ED Physician Ralph Ni HPI: 04/18 18:31 This 28 yrs old Female presents to ER via Ambulatory with complaints of Rash. rn 18:31 The patient's rash thought to be caused by an unknown cause. The rash is located on the rn back, buttocks, right arm, left arm, right leg and left leg. Onset: The symptoms/episode began/occurred yesterday. Severity of symptoms: At their worst the symptoms were mild in the emergency department the symptoms are unchanged. The patient has not experienced similar symptoms in the past. Patient reports hives to body, torso and lower extremities and buttocks. Itches. No new exposure. No history of allergies. No new medication. CITRUS PEELER: 18:23 LMP 01/17/2024, unknown cm10 Historical: - Allergies: 18:23 No Known Allergies; cm10 - Home Meds: 18:23 None [Active]; cm10 - PMHx: 18:23 None; cm10 - PSHx: 18:23 None; cm10 - Immunization history:: Adult Immunizations up to date. - Infectious Disease History:: Denies. - Social history:: Smoking status: Patient denies any tobacco usage or history of. - Family history:: not pertinent. - Hospitalizations: : No recent hospitalization is reported. ROS: 18:31 Constitutional: Negative for fever, chills, and weight loss, Cardiovascular: Negative rn for chest pain, palpitations, and edema, Respiratory: Negative for shortness of breath, cough, wheezing, and pleuritic chest pain, Abdomen/GI: Negative for abdominal pain, nausea, vomiting, diarrhea, and constipation, MS/Extremity: Negative for injury and deformity, Skin: Positive for urticaria Neuro: Negative for headache, weakness, numbness, tingling, and seizure, Exam: 18:31 Constitutional: This is a well developed, well nourished patient who is awake, alert, rn and in no acute distress. Cardiovascular: Regular rate and rhythm. No pulse deficits. Respiratory: No increased work of breathing, no retractions or nasal flaring. Skin: Positive for urticaria and itching Vital Signs: 18:22 BP 123 / 85; Pulse 81; Resp 14; Temp 98.2; Pulse Ox 100% ; Weight 47.63 kg; Height 5 cm10 ft. 5 in. ; Pain 0/10; 18:22 Body Mass Index 17.47 (47.63 kg, 165.1 cm) cm10 18:22 Pain Scale: Adult cm10 MDM: 18:10 Medical Screening Exam initiated rn 18:31 Differential diagnosis: allergic reaction, Urticaria. rn 19:34 Data reviewed: vital signs, nurses notes, and as a result, I will discharge patient. rn Counseling: I had a detailed discussion with the patient and/or guardian regarding the historical points, exam findings, and any diagnostic results supporting the discharge/admit diagnosis, the need for outpatient follow up, to return to the emergency department if symptoms worsen or persist or if there are any questions or concerns that arise at home. Special discussion: I discussed with the patient/guardian in detail that at this point there is no indication for admission to the hospital. It is understood, however, that if the symptoms persist or worsen the patient needs to return immediately for re-evaluation. Administered Medications: 19:06 Drug: MethylPREDNISolone Sodium Succinate IM 125 mg IM once Route: IM; Site: left me1 gluteus; 19:48 Follow up: Response: No adverse reaction cm10 19:06 Drug: Famotidine PO 20 mg PO once Route: PO; me1 19:48 Follow up: Response: No adverse reaction cm10 19:06 Drug: diphenhydrAMINE PO 50 mg PO once Route: PO; me1 19:48 Follow up: Response: No adverse reaction cm10 Disposition Summary: 04/18/24 19:34 Discharge Ordered Notes: Location: Home rn Problem: new rn Symptoms: have improved rn Condition: Stable rn Diagnosis - Urticaria, unspecified rn Followup: rn - With: Private Physician - When: As needed - Reason: Recheck today's complaints, Re-evaluation by your physician Discharge Instructions: - Discharge Summary Sheet susannah Lara rn Forms: - Medication Reconciliation Form rn - 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
--- NOTE | 2024-04-18 19:35 | ER ---
Nurse's Notes [facility] Name: Kenyatta Mejía Age: 28 yrs Sex: Female : 1995 Arrival Date: 04/18/2024 Time: 18:05 Bed 11 Private MD: Diagnosis: Urticaria, unspecified Presentation: 04/18 18:22 Chief complaint: Patient states: Hives all over body onset yesterday. Pt states that cm10 she woke up with the hives. No new products. Coronavirus screen: Client denies travel out of the [place] in the last 14 days. Ebola Screen: Patient denies travel to an Ebola-affected area in the 21 days before illness onset. Initial Sepsis Screen: Does the patient meet any 2 criteria? No. Patient's initial sepsis screen is negative. Does the patient have a suspected source of infection? No. Patient's initial sepsis screen is negative. Risk Assessment: Do you want to hurt yourself or someone else? Patient reports no desire to harm self or others. Onset of symptoms was April 18, 2024. 18:22 Method Of Arrival: Ambulatory cm10 18:22 Acuity: COLIN 4 cm10 Triage Assessment: 18:24 General: Appears in no apparent distress. comfortable, Behavior is calm, cooperative. cm10 Pain: Denies pain. Neuro: No deficits noted. Level of Consciousness is awake, alert, obeys commands, Oriented to person, place, time, situation, Appropriate for age. Respiratory: No deficits noted. Airway is patent Respiratory effort is even, unlabored, Respiratory pattern is regular, symmetrical. Derm: Rash noted that is urticaria, on back, buttocks, right arm, left arm and right leg. 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 - Infectious Disease History:: Denies. - Social history:: Smoking status: Patient denies any tobacco usage or history of. - Family history:: not pertinent. - Hospitalizations: : No recent hospitalization is reported. Screenin:[address] [facility] ED Fall Risk Assessment (Adult) History of falling in the last 3 months, cm10 including since admission No falls in past 3 months (0 pts) Confusion or Disorientation No (0 pts) Intoxicated or Sedated No (0 pts) Impaired Gait No (0 pts) Mobility Assist Device Used No (0 pt) Altered Elimination No (0 pt) Score/Fall Risk Level 0 - 2 = Low Risk Oriented to surroundings, Maintained a safe environment, Hourly rounding (assess needs \T\ fall precautionary measures) done. Abuse screen: Denies threats or abuse. Denies injuries from another. Nutritional screening: No deficits noted. Tuberculosis screening: No symptoms or risk factors identified. Vital Signs: 18:22 BP 123 / 85; Pulse 81; Resp 14; Temp 98.2; Pulse Ox 100% ; Weight 47.63 kg; Height 5 cm10 ft. 5 in. ; Pain 0/10; 18:22 Body Mass Index 17.47 (47.63 kg, 165.1 cm) cm10 18:22 Pain Scale: Adult cm10 ED Course: 18:08 Patient arrived in ED. mr 18:10 Ralph Ni MD is Attending Physician. rn 18:10 Manoj Tesfaye FNP-C [facility] 18:23 Triage completed. cm10 18:24 Arm band placed on left wrist. Patient placed in waiting room. cm10 18:25 Patient has correct armband on for positive identification. Provided Education on: ER cm10 process and procedures.. 18:25 No provider procedures requiring assistance completed. Patient did not have IV access cm10 during this emergency room visit. 18:56 Claritza Arenas, MAIK is Primary Nurse. me1 Administered Medications: 19:06 Drug: MethylPREDNISolone Sodium Succinate IM 125 mg IM once Route: IM; Site: left me1 gluteus; 19:48 Follow up: Response: No adverse reaction cm10 19:06 Drug: Famotidine PO 20 mg PO once Route: PO; me1 19:48 Follow up: Response: No adverse reaction cm10 19:06 Drug: diphenhydrAMINE PO 50 mg PO once Route: PO; me1 19:48 Follow up: Response: No adverse reaction cm10 Medication: 18:24 VIS not applicable for this client. cm10 Outcome: 19:34 Discharge ordered by . rn 19:47 Discharged to home ambulatory, with significant other, cm10 19:47 Condition: good 19:47 Discharge instructions given to patient, Instructed on discharge instructions, follow up and referral plans. medication usage, Demonstrated understanding of instructions, follow-up care, medications, Prescriptions given X 1, 19:47 Patient left the ED. cm10 Signatures: Denisse Lawler, Reg Reg mr Ralph Ni MD MD rn Martinez, Clarissa, RN RN cm10 Claritza Arenas RN RN ut1 Manoj Tesfaye, TEST AND RESEARCH REACTOR OPERATOR-C TEST AND RESEARCH REACTOR OPERATOR-[facility]
[2024-04-18 19:54] VITALS: BP 123/85; TEMP 98.2; O2SAT 100
== END 2024-04-18 19:47 | disposition home or self-care (01) ==
LOC: ER 18:05
DX: L50.9 Urticaria, unspecified (principal)
CPT/HCPCS: 96372; 99284; J2919